=== PATIENT | female | born 1955 | race Caucasian/White ===

== ENCOUNTER 2019-10-26 14:49 | Inpatient (IN) | payer BC ==
[2019-10-26 15:29] LABS: HEMATOCRIT 34.1 % (36.0-47.0); HEMOGLOBIN 11.1 g/dL (12.0-15.5); MEAN CORPUSCULAR HEMOGLOBIN 27.5 pg (27.0-33.4); MEAN CORPUSCULAR HGB CONC 32.6 g/dL (32.0-36.0); MEAN CORPUSCULAR VOLUME 84 fl (80-97); PLATELET COUNT 560 10^3/uL (150-450); RED BLOOD COUNT 4.05 10^6/uL (3.72-5.28); RED CELL DISTRIBUTION WIDTH 15.4 % (11.5-14.0)
[2019-10-26 15:49] LABS: ABSOLUTE LYMPHOCYTES# (MANUAL) 1.7 10^3/uL (0.5-4.7); ABSOLUTE MONOCYTES # (MANUAL) 2.1 10^3/uL (0.1-1.4); BAND NEUTROPHILS % (MANUAL) 2 % (3-5); BASOPHILS % (MANUAL) 1 % (0-2); EOSINOPHILS % (MANUAL) 1 % (0-6); LYMPHOCYTES % (MANUAL) 3 % (13-45); MONOCYTES % (MANUAL) 5 % (3-13); SEGMENTED NEUTROPHILS % (MAN) 87 % (42-78); TOTAL CELLS COUNTED 100
[2019-10-26 15:51] LABS: ANISOCYTOSIS SLIGHT; OVALOCYTES SLIGHT; PLATELET COMMENT INCREASED; PLATELET LARGE PRESENT; POIKILOCYTOSIS SLIGHT; POLYCHROMASIA SLIGHT; TOXIC VACUOLATION PRESENT
--- NOTE | 2019-10-26 15:57 | ER Document Report ---
Entered by ARASH SHAH SCRIBE 10/26/19 1533 Acting as scribe for:WONG MARIA DO ED General - General Chief Complaint: Altered Mental Status Stated Complaint: WEAKNESS/CONFUSION Time Seen by Provider: 10/26/19 15:22 Information source: Patient Notes: This 64-year-old female patient presents to the emergency department today stating "I do not know, I just do not feel good". Patient states she has "not felt good" for the last few months, mentioning that she does not know exactly wh en this began but mentions she has felt unwell since at least August. Patient reports a 30 pound weight loss over the last 6 months, stating that she has no appetite. Patient reports she has not seen a doctor in at least 10 years, and she could not remember the last time she has seen one. Patient denies all symptoms including chest pain, shortness of breath, abdominal pain, or history of depression. Patient does appear depressed. - Related Data Allergies/Adverse Reactions: No Known Allergies Allergy (Verified 10/26/19 15:13) Past Medical History - General Information source: Patient - Social History Smoking Status: Never Smoker Cigarette use (# per day): No Frequency of alcohol use: None Drug Abuse: None Lives with: Spouse/Significant other Family History: Reviewed & Not Pertinent Patient has homicidal ideation: No - Medical History Medical History: Negative Surgical Hx: Negative Review of Systems - Review of Systems Constitutional: See HPI, Malaise EENT: No symptoms reported Cardiovascular: No symptoms reported Respiratory: No symptoms reported Gastrointestinal: No symptoms reported Genitourinary: No symptoms reported Female Genitourinary: No symptoms reported Musculoskeletal: No symptoms reported Skin: No symptoms reported Hematologic/Lymphatic: No symptoms reported Neurological/Psychological: No symptoms reported -: Yes All other systems reviewed and negative Physical Exam - Vital signs Vitals: Pulse Resp BP Pulse Ox 125 H 19 125/79 96 10/26/19 14:50 10/26/19 14:50 10/26/19 14:50 10/26/19 14:50 - Notes Notes: Physical Exam: General: Alert, appears depressed. HEENT: Normocephalic. Atraumatic. PERRL. Extraocular movements intact. Oropharynx clear. Neck: Supple. Non-tender. Respiratory: No respiratory distress. Clear and equal breath sounds bilaterally. Breast exam performed with female nurse in attendance. No palpable masses. Cardiovascular: Regular rate and rhythm. Abdominal: Normal Inspection. Non-tender. No distension. Normal Bowel Sounds. Back: No gross abnormalities. Extremities: Moves all four extremities. Upper extremities: Normal inspection. Normal ROM. Lower extremities: Normal inspection. No edema. Normal ROM. Neurological: Normal cognition. AAOx4. Normal speech. Psychological: Depressed. Skin: Warm. Dry. Normal color. Course - Re-evaluation Re-evalutation: 10/26/19 20:16 MDM I discussed this pt with Dr. Sands and Dr. Ritchie and the hospitalist will admit and evaluate for admission. - Vital Signs Vital signs: Temp Pulse Resp BP Pulse Ox 98.8 F 124 H 26 H 137/92 H 97 10/26/19 19:52 10/26/19 19:33 10/26/19 19:39 10/26/19 19:39 10/26/19 19:39 - Laboratory Result Diagrams: 10/26/19 15:12 10/26/19 16:08 Laboratory results interpreted by me: 10/26/19 10/26/19 10/26/19 15:12 15:39 16:08 WBC 42.0 H* Hgb 11.1 L Hct 34.1 L RDW 15.4 H Plt Count 560 H Seg Neuts % (Manual) 87 H Band Neutrophils % 2 L Lymphocytes % (Manual) 3 L Abs Neuts (Manual) 37.4 H Abs Monocytes (Manual) 2.1 H Abs Basophils (Manual) 0.4 H Carbonic Acid ABG pH ABG pCO2 ABG HCO3 ABG Total CO2 Sodium Potassium Chloride Creatinine Glucose POC Glucose 121 H Lactic Acid 2.4 H Calcium AST ALT Alkaline Phosphatase Creatine Kinase Albumin Urine Protein Urine Urobilinogen Urine Ascorbic Acid 10/26/19 10/26/19 10/26/19 16:08 16:40 17:09 WBC Hgb Hct RDW Plt Count Seg Neuts % (Manual) Band Neutrophils % Lymphocytes % (Manual) Abs Neuts (Manual) Abs Monocytes (Manual) Abs Basophils (Manual) Carbonic Acid 1.03 L ABG pH 7.54 H ABG pCO2 34.3 L ABG HCO3 28.4 H ABG Total CO2 29.5 H Sodium 127.4 L Potassium 3.4 L Chloride 95 L Creatinine 0.44 L Glucose 118 H POC Glucose Lactic Acid Calcium 11.4 H AST 65 H ALT 46 H Alkaline Phosphatase 132 H Creatine Kinase < 20 L Albumin 2.6 L Urine Protein 30 H Urine Urobilinogen 2.0 H Urine Ascorbic Acid 40 H - Diagnostic Test Radiology reviewed: Image reviewed, Reports reviewed Discharge - Discharge Clinical Impression: Rectal carcinoma Anemia Qualifiers: Anemia type: unspecified type Qualified Code(s): D64.9 - Anemia, unspecified Condition: Stable Disposition: ADMITTED INPATIENT Admitting Provider: Erma (Hospitalist) Unit Admitted: Medical Floor I personally performed the services described in the documentation, reviewed and edited the documentation which was dictated to the scribe in my presence, and it accurately records my words and actions.
--- NOTE | 2019-10-26 16:39 | RADIOLOGY REPORT (SQ) ---
EXAM DESCRIPTION: CT HEAD WITHOUT IMAGES COMPLETED DATE/TIME: 10/26/2019 2:54 pm REASON FOR STUDY: weak/ aloc COMPARISON: None. TECHNIQUE: Axial images acquired through the brain without intravenous contrast. Images reviewed wi th bone, brain and subdural windows. Additional sagittal and coronal reconstructions were generated. Images stored on PACS. All CT scanners at this facility use dose modulation, iterative reconstruction, and/or weight based d osing when appropriate to reduce radiation dose to as low as reasonably achievable (ALARA). [facility]: Dose Right [facility]: CareDose [facility]: Dose Right [facility]: Teradose 4D [facility]: Smart BULX RADIATION DOSE: CT Rad equipment meets quality standard of care and radiation dose reduction techniq ues were employed. CTDIvol: 53.2 mGy. DLP: 1017 mGy-cm. mGy. LIMITATIONS: None. FINDINGS: VENTRICLES: Normal size and contour. CEREBRUM: No masses. No hemorrhage. No midline shift. No evidence for acute infarction. Normal gra y/white matter differentiation. No areas of low density in the white matter. CEREBELLUM: No masses. No hemorrhage. No alteration of density. No evidence for acute infarction. EXTRAAXIAL SPACES: No fluid collections. No masses. ORBITS AND GLOBE: No intra- or extraconal masses. Normal contour of globe without masses. CALVARIUM: No fracture. PARANASAL SINUSES: No fluid or mucosal thickening. SOFT TISSUES: No mass or hematoma. OTHER: No other significant finding. IMPRESSION: NO ACUTE INTRACRANIAL IMAGING FINDINGS. EVIDENCE OF ACUTE STROKE: NO. COMMENT: Quality ID # [id number]: Final reports with documentation of one or more dose reduction techniques (e.g., Automated exposure control, adjustment of the mA and/or kV according to patient size, use of iterative reconstruction technique) TECHNICAL DOCUMENTATION: JOB ID: [id number] 2010 [employer]- All Rights Reserved Reading location - IP/workstation name: [email or web address]
[2019-10-26 16:43] LABS: ALBUMIN 2.6 g/dL (3.5-5.0); ALKALINE PHOSPHATASE 132 U/L (38-126); ANION GAP 6 (5-19); ASPARTATE AMINO TRANSFERASE 65 U/L (14-36); BILIRUBIN,TOTAL 1.1 mg/dL (0.2-1.3); BLOOD UREA NITROGEN 12 mg/dL (7-20); CALCIUM 11.4 mg/dL (8.4-10.2); CARBON DIOXIDE 26 mmol/L (22-30); CHLORIDE 95 mmol/L (98-107); GLUCOSE 118 mg/dL (75-110); POTASSIUM 3.4 mmol/L (3.6-5.0); TOTAL PROTEIN 6.6 g/dL (6.3-8.2)
[2019-10-26 16:44] LABS: INTERNATIONAL RATION (INR) 1.08
[2019-10-26 16:46] LABS: CREATINE KINASE < 20 U/L (30-135)
[2019-10-26 16:54] LABS: CREATINE KINASE MB < 0.22 ng/mL (<4.55); TROPONIN I < 0.012 ng/mL
[2019-10-26 17:11] LABS: AMORPHOUS SEDIMENT,URINE TRACE /HPF; APPEARANCE,URINE CLOUDY; BILIRUBIN,URINE NEGATIVE (NEGATIVE); COLOR,URINE YELLOW; GLUCOSE, URINE NEGATIVE (NEGATIVE); KETONES,URINE NEGATIVE (NEGATIVE); LEUKOCYTE ESTERASE,URINE NEGATIVE (NEGATIVE); NITRITE,URINE NEGATIVE (NEGATIVE); PROTEIN,URINE 30 mg/dL (NEGATIVE); URINE SPECIFIC GRAVITY 1.013
[2019-10-26 17:40] LABS: ARTERIAL BLOOD BASE EXCESS 5.8 mmol/L; ARTERIAL BLOOD H2CO3 1.03 mmol/L (1.05-1.35); ARTERIAL BLOOD HCO3 28.4 mmol/L (20-24); ARTERIAL BLOOD PCO2 34.3 mmHg (35-45); ARTERIAL BLOOD PH 7.54 (7.35-7.45); ARTERIAL BLOOD TOTAL CO2 29.5 mmol/L (21-25)
[2019-10-26 17:41] LABS: ARTERIAL BLOOD FIO2 ROOM AIR
--- NOTE | 2019-10-26 18:04 | RADIOLOGY REPORT (SQ) ---
EXAM DESCRIPTION: CHEST SINGLE VIEW IMAGES COMPLETED DATE/TIME: 10/26/2019 5:55 pm REASON FOR STUDY: sepsis COMPARISON: None. TECHNIQUE: Single frontal radiographic view of the chest acquired. NUMBER OF VIEWS: One view. LIMITATIONS: None. FINDINGS: LUNGS AND PLEURA: No pneumothorax. No consolidation or pleural effusion. MEDIASTINUM AND HILAR STRUCTURES: Age-appropriate contour. HEART AND VASCULAR STRUCTURES: Heart normal size. BONES: No acute findings. HARDWARE: None in the chest. OTHER: No other significant finding. IMPRESSION: NO ACUTE FINDINGS. TECHNICAL DOCUMENTATION: JOB ID: [id number] [place]-72 2010 [employer]- All Rights Reserved Reading location - IP/workstation name: [email or web address]
[2019-10-26] MEDS ORDERED: RINGERS SOLUTION,LACTATED 1,000 ML IV ONE ×2 (19:33→19:34)
[2019-10-26] MEDS ORDERED: POTASSIUM CHLORIDE 20 MEQ PACKET PO ONE (19:43)
--- NOTE | 2019-10-26 19:48 | RADIOLOGY REPORT (SQ) ---
EXAM DESCRIPTION: CT CHEST WITH; CT ABD/PELVIS WITH IV ONLY IMAGES COMPLETED DATE/TIME: 10/26/2019 6:11 pm REASON FOR STUDY: cough; abd pain . Diffuse abdominal pain. COMPARISON: None. CONTRAST TYPE AND DOSE: contrast/concentration: Isovue 350.00 mmol/ml; Total Contrast Delivered: 99. 0 ml; Total Saline Delivered: 66.0 ml RENAL FUNCTION: GFR > 60. TECHNIQUE: CT scan of the chest performed using helical scanning technique with dynamic intravenous contrast injection. Images reviewed with lung, soft tissue and bone windows. Reconstructed coronal a nd sagittal MPR images reviewed. All images stored on PACS. CT scan of the abdomen and pelvis performed with intravenous and oral contrast using helical scanning technique with dynamic intravenous contrast injection. Images reviewed with lung, soft tissue and b one windows. Reconstructed coronal and sagittal MPR images reviewed. Delayed images for evaluation of the urinary system also acquired and evaluated. All images stored on PACS. All CT scanners at this facility use dose modulation, iterative reconstruction, and/or weight based d osing when appropriate to reduce radiation dose to as low as reasonably achievable (ALARA). [facility]: Dose Right [facility]: CareDose [facility]: Dose Right [facility]: Teradose 4D [facility]: [employer] RADIATION DOSE: CT Rad equipment meets quality standard of care and radiation dose reduction techniq ues were employed. CTDIvol: 7.9 - 11.9 mGy. DLP: 1206 mGy-cm. . LIMITATIONS: None. FINDINGS: CHEST: AXILLAE: No adenopathy. CHEST WALL: No masses. No subcutaneous air. LUNGS: No nodules or masses. No pneumothorax. No infiltrates. PLEURA: No effusions. No calcifications. THYROID: No masses or significant asymmetry. HILAR AND MEDIASTINAL STRUCTURES: No identified masses or abnormal nodes. AORTA AND GREAT VESSELS: No aneurysm. No dissection. PULMONARY ARTERIES: No identified pulmonary emboli. Study not optimized for the pulmonary arteries. HEART: No pericardial effusion. HARDWARE AND LIFELINES: None. BONES: No significant finding. OTHER: No other significant finding. ABDOMEN AND PELVIS: LIVER: Liver has normal size and contour. Mild diffuse hepatic steatosis. No focal hepatic mass. H epatic and portal veins are patent. No biliary ductal dilation. SPLEEN: Normal size. No focal lesions. PANCREAS: No masses. No significant calcifications. No adjacent inflammation or peripancreatic flui d collections. Pancreatic duct not dilated. GALLBLADDER: No identified stones by CT criteria. No inflammatory changes to suggest cholecystitis. ADRENAL GLANDS: No significant masses or asymmetry. RIGHT KIDNEY AND URETER: No solid masses. No significant calcifications. No hydronephrosis or hyd roureter. LEFT KIDNEY AND URETER: No solid masses. No significant calcifications. No hydronephrosis or hydr oureter. AORTA AND VESSELS: No aneurysm. No dissection. Renal arteries, SMA, celiac without stenosis. RETROPERITONEUM: There is retroperitoneal adenopathy with large lymph node adjacent to the left aorta measuring 5.1 x 3.3 cm there is left iliac adenopathy with common iliac node measuring 4 x 2.3 cm. There is left internal iliac lymphadenopathy with a lymph node measuring 2.9 x 2.7 cm. Large left in guinal lymph node measures 3.6 x 3 cm. No retroperitoneal fluid or hemorrhage. No right pelvic avril opathy. LARGE AND SMALL BOWEL: There is a partially circumferential rectal mass involving the low to mid rect um measuring at least 4 cm thickness and extending 12 cm craniocaudal along the colon. This is parti ally circumferential involving the anterior, right, and posterior rectal wall from about the 6 o'cloc k position to the 1 o'clock position. There is loss of the normal fat plane between the anterior rec nupur and uterus, suspicious for local invasion. No bowel obstruction. No significant inflammatory ch lulú. No ascites or pneumoperitoneum. APPENDIX: Normal. ABDOMINAL WALL: No hernia or masses. PERITONEAL CAVITY: No free air. No free fluid. No peritoneal implants or masses. PELVIS: There are enlarged perirectal lymph nodes, for example on the left measuring up to 16 mm and on the right measuring up to 15 mm. The urinary bladder has normal contour and appearance. Calcifie d pelvic phleboliths. No adnexal mass. BONES: No suspicious bone lesions. Spondylosis and degenerative disc disease in the thoracic and lum bar spine. OTHER: No other significant finding. IMPRESSION: 1. Large circumferential rectal mass consistent with rectal carcinoma. Loss of the normal fat plane between the anterior rectal wall and the uterus is highly suggestive of local invasion. No evidence of perforation or peritoneal abscess. 2. There are multiple enlarged perirectal, left inguinal, left internal and common iliac, and retrope ritoneal lymph nodes consistent with metastasis. 3. No acute abnormality in the chest. TECHNICAL DOCUMENTATION: JOB ID: [id number] Quality ID # [id number]: Final reports with documentation of one or more dose reduction techniques (e.g., Au tomated exposure control, adjustment of the mA and/or kV according to patient size, use of iterative reconstruction technique) 2010 [employer]- All Rights Reserved Reading location - IP/workstation name: [email or web address]
[2019-10-26] MEDS ORDERED: PIPERACILLIN/TAZOBACTAM 3.375 GM VIAL IV ONE (20:02)
[2019-10-26 20:30] LABS: ABSOLUTE RETICS # 0.087 10^6/uL (0.028-0.122); RETICULOCYTE COUNT (AUTO) 2.15 % (0.66-2.85)
[2019-10-26] MEDS ORDERED: MAGNESIUM HYDROXIDE SUSP 30 ML UDCUP PO PRN (20:33)
[2019-10-26] MEDS ORDERED: MAG HYDROX/AL HYDROX/SIMETH SUSP 30 ML UDCUP PO PRN (20:33)
[2019-10-26] MEDS ORDERED: ONDANSETRON HCL INJ/PF 4 MG/2 ML SDV IV PRN (20:33)
[2019-10-26] MEDS ORDERED: LORAZEPAM INJ 2 MG/1 ML VIAL IV PRN (20:37)
[2019-10-26] MEDS ORDERED: GUAIFENESIN SYRP 200 MG/10 ML UDC PO PRN (20:37)
[2019-10-26] MEDS ORDERED: ACETAMINOPHEN 325 MG TABLET PO PRN (20:37)
[2019-10-26] MEDS ORDERED: MORPHINE SULFATE 10 MG/ML INJ IV PRN (20:37)
[2019-10-26 20:40] LABS: IRON(TIBC) 33.6 ug/dL (37-170)
--- NOTE | 2019-10-26 22:07 | PDOC CONSULTATION ---
Consultation Consult Date: 10/26/19 Provider Consulted: GUILLERMINA COATS History of Present Illness Admission Date/PCP: 10/26/19 20:15 Patient complains of: Generalized weakness History of Present Illness: STEFFI KULKARNI is a 64 year old female with no prior medical history presenting with several month history of generalized malaise and progressively worsening weakness to the point that in the last week she has had limited ambulation status. She has had diminished appetite with about 20 to 30 pound weight loss over the past couple of months. She denies any fever she denies any cough she denies any abdominal pain. She has noticed decrease amounts in her bowel movements but she has had no nausea no abdominal distention and no known blood per rectum. Patient has no family history of malignancies. She has never had a colonoscopy in the past. She denies any pelvic pain nor any bony complaints. Her has noticed that in the past week she has become disoriented and confused. Past Medical History Medical History: None Cardiac Medical History: Denies: Coronary Artery Disease, Hypertension Pulmonary Medical History: Denies: Asthma, Chronic Obstructive Pulmonary Disease (COPD) EENT Medical History: Denies: Cataracts, Ears - Hearing aids Neurological Medical History: Denies: Hemorrhagic CVA, Ischemic CVA, Seizures Endocrine Medical History: Denies: Diabetes Mellitus Type 1, Diabetes Mellitus Type 2, Hyperthyroidism, Hypothyroidism Renal/ Medical History: Denies: Chronic Kidney Disease, Nephrolithiasis Malignancy Medical History: Reports: None GI Medical History: Denies: Cirrhosis, Hepatitis, Peptic Ulcer Disease Musculoskeltal Medical History: Denies: Arthritis, Gout Skin Medical History: Denies: Eczema, Psoriasis Psychiatric Medical History: Denies: Alcohol Dependency, Depression, Substance Abuse, Tobacco Dependency Traumatic Medical History: Reports: None Hematology: Denies: Anemia, Bleeding Tendencies Infectious Medical History: Reports: None Past Surgical History Past Surgical History: Reports: None Social History Lives with: Spouse/Significant other Smoking Status: Former Smoker - Quit smoking about 6 years ago. Electronic Cigarette use?: No Frequency of Alcohol Use: None Hx Recreational Drug Use: No Drugs: None Hx Prescription Drug Abuse: No - Advance Directive Resuscitation Status: Full Code Family History Family History: denies: CAD, DM, Hypertension, Malignancy Parental Family History Reviewed: Yes Children Family History Reviewed: Yes Sibling(s) Family History Reviewed.: Yes Medication/Allergy Home Medications: No Home Medications 10/26/19 Allergies/Adverse Reactions: No Known Allergies Allergy (Verified 10/26/19 15:13) Review of Systems ROS unobtainable: Due to mental status - Patient answers some simple questions but she really is not able to give a detailed history. Her gave most of the history. Physical Exam Vital Signs: Temp Pulse Resp BP Pulse Ox 98.8 F 124 H 29 H 136/80 H 98 10/26/19 19:52 10/26/19 19:33 10/26/19 20:30 10/26/19 20:30 10/26/19 20:30 Intake & Output 10/25/19 10/26/19 10/27/19 06:59 06:59 06:59 Output Total 280 Balance -280 Weight 73.3 kg General appearance: PRESENT: disheveled Neck exam: PRESENT: other - no tenderness. Respiratory exam: PRESENT: clear to auscultation sakina Cardiovascular exam: PRESENT: tachycardia GI/Abdominal exam: PRESENT: other - Soft, nondistended, nontender to palpation. No palpable hepatosplenomegaly. Rectal exam: PRESENT: other - Anal skin tag noted. Digital rectal exam reveals palpable mass on the right rectal wall extending to the upper anal canal. Extremities exam: PRESENT: other - No leg swelling or tenderness. Neurological exam: PRESENT: awake Psychiatric exam: PRESENT: depressed, flat affect Results Laboratory Results: 10/26/19 15:12 10/26/19 16:08 10/26/19 10/26/19 10/26/19 15:12 15:12 15:12 WBC 42.0 H* RBC 4.05 Hgb 11.1 L Hct 34.1 L MCV 84 MCH 27.5 MCHC 32.6 RDW 15.4 H Plt Count 560 H Seg Neutrophils % Not Reportable Retic Count (auto) Carbonic Acid HCO3/H2CO3 Ratio ABG pH ABG pCO2 ABG pO2 ABG HCO3 ABG O2 Saturation ABG Base Excess FiO2 Sodium Cancelled Potassium Cancelled Chloride Cancelled Carbon Dioxide Cancelled Anion Gap Cancelled BUN Cancelled Creatinine Cancelled Est GFR ( Amer) Cancelled Est GFR (Non-Af Amer) Cancelled Glucose Cancelled Lactic Acid Calcium Cancelled Magnesium Iron TIBC % Saturation Ferritin Total Bilirubin Cancelled AST Cancelled Alkaline Phosphatase Cancelled Total Protein Cancelled Albumin Cancelled Vitamin B12 Folate TSH 2.28 Urine Color Urine Appearance Urine pH Ur Specific [place] Urine Protein Urine Glucose (UA) Urine Ketones Urine Blood Urine Nitrite Ur Leukocyte Esterase Urine WBC (Auto) Urine RBC (Auto) 10/26/19 10/26/19 10/26/19 15:12 16:08 16:08 WBC RBC Hgb Hct MCV MCH MCHC RDW Plt Count Seg Neutrophils % Retic Count (auto) 2.15 Carbonic Acid HCO3/H2CO3 Ratio ABG pH ABG pCO2 ABG pO2 ABG HCO3 ABG O2 Saturation ABG Base Excess FiO2 Sodium Potassium Chloride Carbon Dioxide Anion Gap BUN Creatinine Est GFR ( Amer) Est GFR (Non-Af Amer) Glucose Lactic Acid 2.4 H Calcium Magnesium 1.7 Iron TIBC % Saturation Ferritin Total Bilirubin AST Alkaline Phosphatase Total Protein Albumin Vitamin B12 Folate TSH Urine Color Urine Appearance Urine pH Ur Specific [place] Urine Protein Urine Glucose (UA) Urine Ketones Urine Blood Urine Nitrite Ur Leukocyte Esterase Urine WBC (Auto) Urine RBC (Auto) 10/26/19 10/26/19 10/26/19 16:08 16:08 16:40 WBC RBC Hgb Hct MCV MCH MCHC RDW Plt Count Seg Neutrophils % Retic Count (auto) Carbonic Acid HCO3/H2CO3 Ratio ABG pH ABG pCO2 ABG pO2 ABG HCO3 ABG O2 Saturation ABG Base Excess FiO2 Sodium 127.4 L Potassium 3.4 L Chloride 95 L Carbon Dioxide 26 Anion Gap 6 BUN 12 Creatinine 0.44 L Est GFR ( Amer) > 60 Est GFR (Non-Af Amer) Glucose 118 H Lactic Acid Calcium 11.4 H Magnesium Iron 33.6 L TIBC 190 L % Saturation 18 Ferritin > 1000.00 H Total Bilirubin 1.1 AST 65 H Alkaline Phosphatase 132 H Total Protein 6.6 Albumin 2.6 L Vitamin B12 871.0 Folate 9.60 TSH Urine Color YELLOW Urine Appearance CLOUDY Urine pH 6.0 Ur Specific [place] 1.013 Urine Protein 30 H Urine Glucose (UA) NEGATIVE Urine Ketones NEGATIVE Urine Blood NEGATIVE Urine Nitrite NEGATIVE Ur Leukocyte Esterase NEGATIVE Urine WBC (Auto) 2 Urine RBC (Auto) 2 10/26/19 10/26/19 17:09 18:05 WBC RBC Hgb Hct MCV MCH MCHC RDW Plt Count Seg Neutrophils % Retic Count (auto) Carbonic Acid 1.03 L HCO3/H2CO3 Ratio 27:1 ABG pH 7.54 H ABG pCO2 34.3 L ABG pO2 80.0 ABG HCO3 28.4 H ABG O2 Saturation 97.0 ABG Base Excess 5.8 FiO2 ROOM AIR Sodium Potassium Chloride Carbon Dioxide Anion Gap BUN Creatinine Est GFR ( Amer) Est GFR (Non-Af Amer) Glucose Lactic Acid 1.8 Calcium Magnesium Iron TIBC % Saturation Ferritin Total Bilirubin AST Alkaline Phosphatase Total Protein Albumin Vitamin B12 Folate TSH Urine Color Urine Appearance Urine pH Ur Specific [place] Urine Protein Urine Glucose (UA) Urine Ketones Urine Blood Urine Nitrite Ur Leukocyte Esterase Urine WBC (Auto) Urine RBC (Auto) 10/26/19 10/26/19 10/26/19 15:12 15:12 16:08 Creatine Kinase Cancelled CK-MB (CK-2) Cancelled < 0.22 Troponin I Cancelled < 0.012 10/26/19 16:08 Creatine Kinase < 20 L CK-MB (CK-2) Troponin I Impressions: Abdomen/Pelvis CT 10/26/19 00:00 IMPRESSION: 1. Large circumferential rectal mass consistent with rectal carcinoma. Loss of the normal fat plane between the anterior rectal wall and the uterus is highly suggestive of local invasion. No evidence of perforation or peritoneal abscess. 2. There are multiple enlarged perirectal, left inguinal, left internal and common iliac, and retroperitoneal lymph nodes consistent with metastasis. 3. No acute abnormality in the chest. Chest X-Ray 10/26/19 00:00 IMPRESSION: NO ACUTE FINDINGS. Head CT 10/26/19 15:37 IMPRESSION: NO ACUTE INTRACRANIAL IMAGING FINDINGS. EVIDENCE OF ACUTE STROKE: NO. Chest CT 10/26/19 17:28 IMPRESSION: 1. Large circumferential rectal mass consistent with rectal carcinoma. Loss of the normal fat plane between the anterior rectal wall and the uterus is highly suggestive of local invasion. No evidence of perforation or peritoneal abscess. 2. There are multiple enlarged perirectal, left inguinal, left internal and co mmon iliac, and retroperitoneal lymph nodes consistent with metastasis. 3. No acute abnormality in the chest. Assessment & Plan - Diagnosis (1) Rectal carcinoma Is this a current diagnosis for this admission?: Yes Plan: Likely locally advanced rectal carcinoma. Patient will be admitted admitted to the medical service. After adequate hydration, patient would benefit from a bowel prep followed by colonoscopy. Patient certainly in no shape to undergo any type of surgical intervention. After we establish the diagnosis with biopsies, will need to discuss with oncology and the family about the best treatment option. Surgical service will follow.
[2019-10-26] MEDS: HEPARIN SOD (PORCINE) 5,000 UNIT/ML 1 ML VIAL SUBCUT SCH (22:28)
[2019-10-26] MEDS: MELATONIN 5 MG TABLET PO PRN (22:28)
[2019-10-26] MEDS: FAMOTIDINE 20 MG TABLET PO SCH (22:28)
--- NOTE | 2019-10-27 00:53 | PDOC H&P ---
History of Present Illness Admission Date/PCP: 10/26/2019 20:15 No local PCP Patient complains of: Malaise History of Present Illness: STEFFI DICKSON is a 64 year old female presented to the emergency room with a 6- month history of malaise. She admits a gradually worsening course of generalized malaise over the last 6 months. Her malaise is been accompanied by fatigue and a decrease in appetite and has been associated with an unintentional weight loss of 30 pounds and progressive generalized weakness. She denies other associated or accompanying signs and symptoms. She denies prior similar episodes. She has not identified any aggravating or ameliorating factors for her malaise. In the emergency room she was found to have a rectal mass with pelvic lymphadenopathy, hyponatremia, hypercalcemia, a respiratory alkalosis and a white blood count of 42,000. She was subsequently admitted to the hospital for further evaluation and treatment. Past Medical History Cardiac Medical History: Denies: Coronary Artery Disease, Hypertension Pulmonary Medical History: Denies: Asthma, Chronic Obstructive Pulmonary Disease (COPD) EENT Medical History: Denies: Cataracts, Ears - Hearing aids Neurological Medical History: Denies: Hemorrhagic CVA, Ischemic CVA, Seizures Endocrine Medical History: Denies: Diabetes Mellitus Type 1, Diabetes Mellitus Type 2, Hyperthyroidism, Hypothyroidism Renal/ Medical History: Denies: Chronic Kidney Disease, Nephrolithiasis Malignancy Medical History: Reports: None GI Medical History: Denies: Cirrhosis, Hepatitis, Peptic Ulcer Disease Musculoskeltal Medical History: Denies: Arthritis, Gout Skin Medical History: Denies: Eczema, Psoriasis Psychiatric Medical History: Denies: Alcohol Dependency, Depression, Substance Abuse, Tobacco Dependency Traumatic Medical History: Reports: None Hematology: Denies: Anemia, Bleeding Tendencies Infectious Medical History: Reports: None Past Surgical History Past Surgical History: Reports: None Social History Information Source: Patient Lives with: Spouse/Significant other Smoking Status: Former Smoker - Quit several years ago Electronic Cigarette use?: No Frequency of Alcohol Use: None Hx Recreational Drug Use: No Drugs: None Hx Prescription Drug Abuse: No - Advance Directive Resuscitation Status: Full Code Surrogate healthcare decision maker:: Arpit Dickson Family History Family History: denies: CAD, DM, Hypertension, Malignancy Parental Family History Reviewed: Yes Children Family History Reviewed: No Sibling(s) Family History Reviewed.: Yes Medication/Allergy Home Medications: No Home Medications 10/26/19 Allergies/Adverse Reactions: No Known Allergies Allergy (Verified 10/26/19 15:13) Review of Systems Constitutional: PRESENT: as per HPI, anorexia, fatigue, weakness, weight loss, other - Malaise. ABSENT: chills, fever(s) Eyes: ABSENT: visual disturbances, other - Eye pain Ears: ABSENT: hearing changes, other - Ear pain Nose, Mouth, and Throat: ABSENT: headache(s), sore throat Cardiovascular: ABSENT: chest pain, palpitations Respiratory: ABSENT: cough, dyspnea Gastrointestinal: ABSENT: abdominal pain, bloating, constipation, diarrhea, melena, nausea, vomiting Genitourinary: ABSENT: dysuria, hematuria Musculoskeletal: ABSENT: back pain, joint swelling Integumentary: ABSENT: pruritus, rash Neurological: PRESENT: weakness - Generalized. ABSENT: confusion, convulsions, focal weakness, memory loss, syncope Psychiatric: ABSENT: anxiety, depression Endocrine: ABSENT: cold intolerance, heat intolerance Hematologic/Lymphatic: ABSENT: easy bleeding, easy bruising Allergic/Immunologic: ABSENT: seasonal rhinorrhea Physical Exam Vital Signs: Temp Pulse Resp BP Pulse Ox 98.8 F 124 H 26 H 137/92 H 97 10/26/19 19:52 10/26/19 19:33 10/26/19 19:39 10/26/19 19:39 10/26/19 19:39 Intake & Output 10/24/19 10/25/19 10/26/19 23:59 23:59 23:59 Output Total 280 Balance -280 Weight 73.3 kg General appearance: PRESENT: no acute distress, cooperative, obese Head exam: PRESENT: atraumatic, normocephalic Eye exam: PRESENT: conjunctiva pink. ABSENT: conjunctival injection, scleral icterus Ear exam: PRESENT: normal external ear exam. ABSENT: bleeding, drainage Mouth exam: PRESENT: dry mucosa, neck supple Neck exam: ABSENT: thyromegaly, tracheal deviation Respiratory exam: PRESENT: clear to auscultation sakina, symmetrical, unlabored Cardiovascular exam: PRESENT: RRR. ABSENT: clicks, gallop, rubs Pulses: PRESENT: normal radial pulses, normal dorsalis pedis pul Vascular exam: PRESENT: normal capillary refill. ABSENT: pallor GI/Abdominal exam: PRESENT: normal bowel sounds, soft, other - Palpable left inguinal lymphadenopathy without tenderness. ABSENT: tenderness Rectal exam: PRESENT: deferred Extremities exam: ABSENT: joint swelling, pedal edema Musculoskeletal exam: ABSENT: deformity, dislocation Neurological exam: PRESENT: alert, oriented to person, oriented to place, oriented to time, oriented to situation, CN II-XII grossly intact. ABSENT: motor sensory deficit Psychiatric exam: PRESENT: appropriate affect, normal mood Skin exam: PRESENT: dry, intact, warm. ABSENT: jaundice, rash, urticaria Results Laboratory Results: 10/26/19 15:12 10/26/19 16:08 10/26/19 10/26/19 10/26/19 15:12 15:12 15:12 WBC 42.0 H* RBC 4.05 Hgb 11.1 L Hct 34.1 L MCV 84 MCH 27.5 MCHC 32.6 RDW 15.4 H Plt Count 560 H Seg Neutrophils % Not Reportable Carbonic Acid HCO3/H2CO3 Ratio ABG pH ABG pCO2 ABG pO2 ABG HCO3 ABG O2 Saturation ABG Base Excess FiO2 Sodium Cancelled Potassium Cancelled Chloride Cancelled Carbon Dioxide Cancelled Anion Gap Cancelled BUN Cancelled Creatinine Cancelled Est GFR ( Amer) Cancelled Est GFR (Non-Af Amer) Cancelled Glucose Cancelled Lactic Acid Calcium Cancelled Magnesium Total Bilirubin Cancelled AST Cancelled Alkaline Phosphatase Cancelled Total Protein Cancelled Albumin Cancelled TSH 2.28 Urine Color Urine Appearance Urine pH Ur Specific [place] Urine Protein Urine Glucose (UA) Urine Ketones Urine Blood Urine Nitrite Ur Leukocyte Esterase Urine WBC (Auto) Urine RBC (Auto) 10/26/19 10/26/19 10/26/19 16:08 16:08 16:08 WBC RBC Hgb Hct MCV MCH MCHC RDW Plt Count Seg Neutrophils % Carbonic Acid HCO3/H2CO3 Ratio ABG pH ABG pCO2 ABG pO2 ABG HCO3 ABG O2 Saturation ABG Base Excess FiO2 Sodium 127.4 L Potassium 3.4 L Chloride 95 L Carbon Dioxide 26 Anion Gap 6 BUN 12 Creatinine 0.44 L Est GFR ( Amer) > 60 Est GFR (Non-Af Amer) Glucose 118 H Lactic Acid 2.4 H Calcium 11.4 H Magnesium 1.7 Total Bilirubin 1.1 AST 65 H Alkaline Phosphatase 132 H Total Protein 6.6 Albumin 2.6 L TSH Urine Color Urine Appearance Urine pH Ur Specific [place] Urine Protein Urine Glucose (UA) Urine Ketones Urine Blood Urine Nitrite Ur Leukocyte Esterase Urine WBC (Auto) Urine RBC (Auto) 10/26/19 10/26/19 10/26/19 16:40 17:09 18:05 WBC RBC Hgb Hct MCV MCH MCHC RDW Plt Count Seg Neutrophils % Carbonic Acid 1.03 L HCO3/H2CO3 Ratio 27:1 ABG pH 7.54 H ABG pCO2 34.3 L ABG pO2 80.0 ABG HCO3 28.4 H ABG O2 Saturation 97.0 ABG Base Excess 5.8 FiO2 ROOM AIR Sodium Potassium Chloride Carbon Dioxide Anion Gap BUN Creatinine Est GFR ( Amer) Est GFR (Non-Af Amer) Glucose Lactic Acid 1.8 Calcium Magnesium Total Bilirubin AST Alkaline Phosphatase Total Protein Albumin TSH Urine Color YELLOW Urine Appearance CLOUDY Urine pH 6.0 Ur Specific [place] 1.013 Urine Protein 30 H Urine Glucose (UA) NEGATIVE Urine Ketones NEGATIVE Urine Blood NEGATIVE Urine Nitrite NEGATIVE Ur Leukocyte Esterase NEGATIVE Urine WBC (Auto) 2 Urine RBC (Auto) 2 10/26/19 10/26/19 10/26/19 15:12 15:12 16:08 Creatine Kinase Cancelled CK-MB (CK-2) Cancelled < 0.22 Troponin I Cancelled < 0.012 10/26/19 16:08 Creatine Kinase < 20 L CK-MB (CK-2) Troponin I Impressions: Abdomen/Pelvis CT 10/26/19 00:00 IMPRESSION: 1. Large circumferential rectal mass consistent with rectal carcinoma. Loss of the normal fat plane between the anterior rectal wall and the uterus is highly suggestive of local invasion. No evidence of perforation or peritoneal abscess. 2. There are multiple enlarged perirectal, left inguinal, left internal and common iliac, and retroperitoneal lymph nodes consistent with metastasis. 3. No acute abnormality in the chest. Chest X-Ray 10/26/19 00:00 IMPRESSION: NO ACUTE FINDINGS. Head CT 10/26/19 15:37 IMPRESSION: NO ACUTE INTRACRANIAL IMAGING FINDINGS. EVIDENCE OF ACUTE STROKE: NO. Chest CT 10/26/19 17:28 IMPRESSION: 1. Large circumferential rectal mass consistent with rectal carcinoma. Loss of the normal fat plane between the anterior rectal wall and the uterus is highly suggestive of local invasion. No evidence of perforation or peritoneal abscess. 2. There are multiple enlarged perirectal, left inguinal, left internal and common iliac, and retroperitoneal lymph nodes consistent with metastasis. 3. No acute abnormality in the chest. Assessment and Plan - Diagnosis (1) Rectal mass Is this a current diagnosis for this admission?: Yes (2) Pelvic lymphadenopathy Is this a current diagnosis for this admission?: Yes (3) Leukocytosis Qualifiers: Leukocytosis type: unspecified Qualified Code(s): D72.829 - Elevated white blood cell count, unspecified Is this a current diagnosis for this admission?: Yes (4) Respiratory alkalosis Is this a current diagnosis for this admission?: Yes (5) Hyponatremia Is this a current diagnosis for this admission?: Yes (6) Hypercalcemia Is this a current diagnosis for this admission?: Yes (7) Anemia Qualifiers: Anemia type: unspecified type Qualified Code(s): D64.9 - Anemia, unspecified Is this a current diagnosis for this admission?: Yes - Plan Summary Summary: Patient will be admitted to the medical floor where she will receive routine supportive and symptomatic cares. She will be treated with IV Zosyn empirically at the direction of Dr. Sands. Dr. Sands will be consulted for hematolog y/oncology evaluation. Dr. Jye Rojas will be consulted for surgical evaluation and treatment. Patient will receive Ativan 1 mg IV every 4 hours as needed for anxiety or restlessness. She will receive morphine sulfate 2 to 4 mg IV every 2 hours as needed pain. She will be maintained on a regular diet. CBCs, metabolic profiles, magnesium levels and additional laboratory and/or radiographic evaluations will be obtained as appropriate. - Time Time Spent with patient: 15-24 minutes Medications reviewed and adjusted accordingly: Yes - No home medications Anticipated discharge: Home - Inpatient Certification Based on my medical assessment, after consideration of the patient's comorbidities, presenting symptoms, or acuity I expect that the services needed warrant INPATIENT care.: Yes I certify that my determination is in accordance with my understanding of Medicare's requirements for reasonable and necessary INPATIENT services [42 CFR 412.3e].: Yes Medical Necessity: Need for IV Antibiotics, Need for Surgery, Risk of Diagnosis Which Will Require Inpatient Eval/Care/Monitoring
[2019-10-27] MEDS ORDERED: PIPERACILLIN/TAZOBACTAM 3.375 GM VIAL IV ONE (01:02)
[2019-10-27] MEDS ORDERED: PIPERACILLIN/TAZOBACTAM 3.375 GM VIAL IV SCH ×2 (03:00)
[2019-10-27] MEDS: HEPARIN SOD (PORCINE) 5,000 UNIT/ML 1 ML VIAL SUBCUT SCH ×3 (05:18→22:44)
[2019-10-27 06:03] LABS: ABSOLUTE RETICS # 0.082 10^6/uL (0.028-0.122); HEMATOCRIT 32.5 % (36.0-47.0); HEMOGLOBIN 10.7 g/dL (12.0-15.5); MEAN CORPUSCULAR HEMOGLOBIN 27.6 pg (27.0-33.4); MEAN CORPUSCULAR HGB CONC 32.9 g/dL (32.0-36.0); MEAN CORPUSCULAR VOLUME 84 fl (80-97); PLATELET COUNT 453 10^3/uL (150-450); RED BLOOD COUNT 3.88 10^6/uL (3.72-5.28); RED CELL DISTRIBUTION WIDTH 15.6 % (11.5-14.0); RETICULOCYTE COUNT (AUTO) 2.11 % (0.66-2.85)
[2019-10-27 06:05] LABS: INTERNATIONAL RATION (INR) 1.14; PROTHROMBIN TIME 14.7 SEC (11.4-15.4)
[2019-10-27 06:06] LABS: PARTIAL THROMBOPLASTIN TIME 25.7 SEC (23.5-35.8)
[2019-10-27 06:22] LABS: ALBUMIN 2.3 g/dL (3.5-5.0); ALKALINE PHOSPHATASE 121 U/L (38-126); ASPARTATE AMINO TRANSFERASE 38 U/L (14-36); BILIRUBIN,TOTAL 1.4 mg/dL (0.2-1.3); BLOOD UREA NITROGEN 8 mg/dL (7-20); CALCIUM 11.7 mg/dL (8.4-10.2); CHOLESTEROL 100.37 mg/dL (0-200); GLUCOSE 90 mg/dL (75-110); IRON(TIBC) 24.8 ug/dL (37-170); PHOSPHORUS 2.7 mg/dL (2.5-4.5); POTASSIUM 3.9 mmol/L (3.6-5.0); TRIGLYCERIDES 74 mg/dL (<150)
[2019-10-27 06:27] LABS: ANION GAP 5 (5-19); CARBON DIOXIDE 29 mmol/L (22-30); CHLORIDE 97 mmol/L (98-107)
[2019-10-27 06:32] LABS: DIRECT LDL 58 mg/dL (<100)
[2019-10-27 07:17] LABS: WHITE BLOOD COUNT 39.4 10^3/uL (4.0-10.5)
[2019-10-27 07:26] LABS: FOLATE 9.02 ng/mL (>2.76)
--- NOTE | 2019-10-27 08:02 | PDOC CONSULTATION ---
Consultation Consult Date: 10/27/19 Attending physician:: KATERINE MANRIQUE Provider Consulted: ELEANOR TOTH Consult reason:: Patient with newly noted large rectal mass, diffuse adenopathy History of Present Illness Admission Date/PCP: 10/26/19 20:15 Patient complains of: Feeling weak, fatigued, 20 to 30 pound weight loss History of Present Illness: STEFFI KULKARNI is a 64 year old female feeling overall poorly, she has not had medical care for quite some time, presents with a 2 to 3-month history of increasing fatigue, poor p.o. intake, weight loss of 20 to 30 pounds, she does remember some bowel abnormalities but does not exactly remember what the issue was. Does not remember blood. Upon admit, white count was 42,000, platelets were above 500,000, patient had CT of the head because there was some confusion which was negative, patient had CT of the chest abdomen pelvis, and this unfortunately indicated a large rectal mass, left iliac adenopathy, left inguinal adenopathy, and multiple perirectal lymph nodes. CT chest was negative for any disease. Past Medical History Cardiac Medical History: Denies: Coronary Artery Disease, Hypertension Pulmonary Medical History: Denies: Asthma, Chronic Obstructive Pulmonary Disease (COPD) EENT Medical History: Denies: Cataracts, Ears - Hearing aids Neurological Medical History: Denies: Hemorrhagic CVA, Ischemic CVA, Seizures Endocrine Medical History: Denies: Diabetes Mellitus Type 1, Diabetes Mellitus Type 2, Hyperthyroidism, Hypothyroidism Renal/ Medical History: Denies: Chronic Kidney Disease, Nephrolithiasis Malignancy Medical History: Reports: None GI Medical History: Denies: Cirrhosis, Hepatitis, Peptic Ulcer Disease Musculoskeltal Medical History: Denies: Arthritis, Gout Skin Medical History: Denies: Eczema, Psoriasis Psychiatric Medical History: Denies: Alcohol Dependency, Depression, Substance Abuse, Tobacco Dependency Traumatic Medical History: Reports: None Hematology: Denies: Anemia, Bleeding Tendencies Infectious Medical History: Reports: None Past Surgical History Past Surgical History: Reports: None Social History Information Source: Patient Lives with: Spouse/Significant other Smoking Status: Former Smoker - Quit several years ago Electronic Cigarette use?: No Frequency of Alcohol Use: None Hx Recreational Drug Use: No Drugs: None Hx Prescription Drug Abuse: No - Advance Directive Resuscitation Status: Full Code Family History Family History: denies: CAD, DM, Hypertension, Malignancy Parental Family History Reviewed: Yes Children Family History Reviewed: Yes Sibling(s) Family History Reviewed.: Yes Medication/Allergy Home Medications: No Home Medications 10/26/19 Allergies/Adverse Reactions: No Known Allergies Allergy (Verified 10/26/19 15:13) Review of Systems Constitutional: PRESENT: anorexia, fatigue, weakness, weight loss Cardiovascular: ABSENT: chest pain, dyspnea on exertion, edema, orthropnea, palpitations Respiratory: ABSENT: cough, hemoptysis Gastrointestinal: PRESENT: abdominal pain, constipation Musculoskeletal: ABSENT: joint swelling Integumentary: ABSENT: rash, wounds Neurological: PRESENT: weakness Endocrine: ABSENT: cold intolerance, heat intolerance, polydipsia, polyuria Physical Exam Vital Signs: Temp Pulse Resp BP Pulse Ox 99.0 F 110 H 18 127/79 H 98 10/27/19 00:32 10/27/19 00:32 10/27/19 00:32 10/27/19 00:32 10/27/19 00:32 Intake & Output 10/26/19 10/27/19 10/28/19 06:59 06:59 06:59 Intake Total 2200 Output Total 280 Balance 1920 Weight 76.8 kg General appearance: PRESENT: no acute distress, well-developed, well-nourished Head exam: PRESENT: atraumatic, normocephalic Eye exam: PRESENT: conjunctiva pink, EOMI, PERRLA. ABSENT: scleral icterus Ear exam: PRESENT: normal external ear exam Mouth exam: PRESENT: moist, tongue midline Neck exam: ABSENT: carotid bruit, JVD, lymphadenopathy, thyromegaly Respiratory exam: PRESENT: clear to auscultation sakina. ABSENT: rales, rhonchi, wheezes Cardiovascular exam: PRESENT: RRR. ABSENT: diastolic murmur, rubs, systolic murmur Pulses: PRESENT: normal dorsalis pedis pul Vascular exam: PRESENT: normal capillary refill GI/Abdominal exam: PRESENT: normal bowel sounds, soft. ABSENT: distended, guarding, mass, organolmegaly, rebound, tenderness Rectal exam: PRESENT: deferred Extremities exam: PRESENT: full ROM. ABSENT: calf tenderness, clubbing, pedal edema Neurological exam: PRESENT: alert, awake, oriented to person, oriented to place, oriented to time, oriented to situation, CN II-XII grossly intact. ABSENT: motor sensory deficit Psychiatric exam: PRESENT: appropriate affect, normal mood. ABSENT: homicidal ideation, suicidal ideation Skin exam: PRESENT: dry, intact, warm. ABSENT: cyanosis, rash Results Laboratory Results: 10/27/19 04:56 10/27/19 04:56 10/26/19 10/26/19 10/26/19 15:12 15:12 15:12 WBC 42.0 H* RBC 4.05 Hgb 11.1 L Hct 34.1 L MCV 84 MCH 27.5 MCHC 32.6 RDW 15.4 H Plt Count 560 H Seg Neutrophils % Not Reportable Retic Count (auto) Carbonic Acid HCO3/H2CO3 Ratio ABG pH ABG pCO2 ABG pO2 ABG HCO3 ABG O2 Saturation ABG Base Excess FiO2 Sodium Cancelled Potassium Cancelled Chloride Cancelled Carbon Dioxide Cancelled Anion Gap Cancelled BUN Cancelled Creatinine Cancelled Est GFR ( Amer) Cancelled Est GFR (Non-Af Amer) Cancelled Glucose Cancelled Lactic Acid Calcium Cancelled Phosphorus Magnesium Iron TIBC % Saturation Ferritin Total Bilirubin Cancelled AST Cancelled Alkaline Phosphatase Cancelled Total Protein Cancelled Albumin Cancelled Triglycerides Cholesterol LDL Cholesterol Direct VLDL Cholesterol HDL Cholesterol Vitamin B12 Folate TSH 2.28 Urine Color Urine Appearance Urine pH Ur Specific [place] Urine Protein Urine Glucose (UA) Urine Ketones Urine Blood Urine Nitrite Ur Leukocyte Esterase Urine WBC (Auto) Urine RBC (Auto) 10/26/19 10/26/19 10/26/19 15:12 16:08 16:08 WBC RBC Hgb Hct MCV MCH MCHC RDW Plt Count Seg Neutrophils % Retic Count (auto) 2.15 Carbonic Acid HCO3/H2CO3 Ratio ABG pH ABG pCO2 ABG pO2 ABG HCO3 ABG O2 Saturation ABG Base Excess FiO2 Sodium Potassium Chloride Carbon Dioxide Anion Gap BUN Creatinine Est GFR ( Amer) Est GFR (Non-Af Amer) Glucose Lactic Acid 2.4 H Calcium Phosphorus Magnesium 1.7 Iron TIBC % Saturation Ferritin Total Bilirubin AST Alkaline Phosphatase Total Protein Albumin Triglycerides Cholesterol LDL Cholesterol Direct VLDL Cholesterol HDL Cholesterol Vitamin B12 Folate TSH Urine Color Urine Appearance Urine pH Ur Specific [place] Urine Protein Urine Glucose (UA) Urine Ketones Urine Blood Urine Nitrite Ur Leukocyte Esterase Urine WBC (Auto) Urine RBC (Auto) 10/26/19 10/26/19 10/26/19 16:08 16:08 16:40 WBC RBC Hgb Hct MCV MCH MCHC RDW Plt Count Seg Neutrophils % Retic Count (auto) Carbonic Acid HCO3/H2CO3 Ratio ABG pH ABG pCO2 ABG pO2 ABG HCO3 ABG O2 Saturation ABG Base Excess FiO2 Sodium 127.4 L Potassium 3.4 L Chloride 95 L Carbon Dioxide 26 Anion Gap 6 BUN 12 Creatinine 0.44 L Est GFR ( Amer) > 60 Est GFR (Non-Af Amer) Glucose 118 H Lactic Acid Calcium 11.4 H Phosphorus Magnesium Iron 33.6 L TIBC 190 L % Saturation 18 Ferritin 1210.00 H Total Bilirubin 1.1 AST 65 H Alkaline Phosphatase 132 H Total Protein 6.6 Albumin 2.6 L Triglycerides Cholesterol LDL Cholesterol Direct VLDL Cholesterol HDL Cholesterol Vitamin B12 871.0 Folate 9.60 TSH Urine Color YELLOW Urine Appearance CLOUDY Urine pH 6.0 Ur Specific [place] 1.013 Urine Protein 30 H Urine Glucose (UA) NEGATIVE Urine Ketones NEGATIVE Urine Blood NEGATIVE Urine Nitrite NEGATIVE Ur Leukocyte Esterase NEGATIVE Urine WBC (Auto) 2 Urine RBC (Auto) 2 10/26/19 10/26/19 10/26/19 17:09 18:05 21:59 WBC RBC Hgb Hct MCV MCH MCHC RDW Plt Count Seg Neutrophils % Retic Count (auto) Carbonic Acid 1.03 L HCO3/H2CO3 Ratio 27:1 ABG pH 7.54 H ABG pCO2 34.3 L ABG pO2 80.0 ABG HCO3 28.4 H ABG O2 Saturation 97.0 ABG Base Excess 5.8 FiO2 ROOM AIR Sodium Potassium Chloride Carbon Dioxide Anion Gap BUN Creatinine Est GFR ( Amer) Est GFR (Non-Af Amer) Glucose Lactic Acid 1.8 1.9 Calcium Phosphorus Magnesium Iron TIBC % Saturation Ferritin Total Bilirubin AST Alkaline Phosphatase Total Protein Albumin Triglycerides Cholesterol LDL Cholesterol Direct VLDL Cholesterol HDL Cholesterol Vitamin B12 Folate TSH Urine Color Urine Appearance Urine pH Ur Specific [place] Urine Protein Urine Glucose (UA) Urine Ketones Urine Blood Urine Nitrite Ur Leukocyte Esterase Urine WBC (Auto) Urine RBC (Auto) 10/27/19 10/27/19 04:56 04:56 WBC 39.4 H* RBC 3.88 Hgb 10.7 L Hct 32.5 L MCV 84 MCH 27.6 MCHC 32.9 RDW 15.6 H Plt Count 453 H Seg Neutrophils % Retic Count (auto) 2.11 Carbonic Acid HCO3/H2CO3 Ratio ABG pH ABG pCO2 ABG pO2 ABG HCO3 ABG O2 Saturation ABG Base Excess FiO2 Sodium 130.9 L Potassium 3.9 Chloride 97 L Carbon Dioxide 29 Anion Gap 5 BUN 8 Creatinine 0.47 L Est GFR ( Amer) > 60 Est GFR (Non-Af Amer) Glucose 90 Lactic Acid Calcium 11.7 H Phosphorus 2.7 Magnesium 1.7 Iron 24.8 L TIBC 170 L % Saturation 15 Ferritin 1150.00 H Total Bilirubin 1.4 H AST 38 H Alkaline Phosphatase 121 Total Protein 6.0 L Albumin 2.3 L Triglycerides 74 Cholesterol 100.37 LDL Cholesterol Direct 58 VLDL Cholesterol 15.0 HDL Cholesterol 23 L Vitamin B12 886.0 Folate 9.02 TSH Urine Color Urine Appearance Urine pH Ur Specific [place] Urine Protein Urine Glucose (UA) Urine Ketones Urine Blood Urine Nitrite Ur Leukocyte Esterase Urine WBC (Auto) Urine RBC (Auto) 10/26/19 10/26/19 10/26/19 15:12 15:12 16:08 Creatine Kinase Cancelled CK-MB (CK-2) Cancelled < 0.22 Troponin I Cancelled < 0.012 10/26/19 16:08 Creatine Kinase < 20 L CK-MB (CK-2) Troponin I Impressions: Abdomen/Pelvis CT 10/26/19 00:00 IMPRESSION: 1. Large circumferential rectal mass consistent with rectal carcinoma. Loss of the normal fat plane between the anterior rectal wall and the uterus is highly suggestive of local invasion. No evidence of perforation or peritoneal abscess. 2. There are multiple enlarged perirectal, left inguinal, left internal and common iliac, and retroperitoneal lymph nodes consistent with metastasis. 3. No acute abnormality in the chest. Chest X-Ray 10/26/19 00:00 IMPRESSION: NO ACUTE FINDINGS. Head CT 10/26/19 15:37 IMPRESSION: NO ACUTE INTRACRANIAL IMAGING FINDINGS. EVIDENCE OF ACUTE STROKE: NO. Chest CT 10/26/19 17:28 IMPRESSION: 1. Large circumferential rectal mass consistent with rectal carcinoma. Loss of the normal fat plane between the anterior rectal wall and the uterus is highly suggestive of local invasion. No evidence of perforation or peritoneal abscess. 2. There are multiple enlarged perirectal, left inguinal, left internal and common iliac, and retroperitoneal lymph nodes consistent with metastasis. 3. No acute abnormality in the chest. Status: Image reviewed by pa Assessment & Plan - Diagnosis (1) Rectal mass Is this a current diagnosis for this admission?: Yes Plan: Concerning picture for possible rectal cancer with lymph node spread, most lymph node spread would be reasonable except for the inguinal adenopathy. Inguinal adenopathy would be more consistent with either a vaginal or anal cancer. I have discussed case with Dr. Pedraza of general surgery, would like them to perform both colonoscopy as well as left inguinal lymph node biopsy is if it were to be rectal cancer, left inguinal node would be stage IV disease. - Time Time Spent: Greater than 70 Minutes - Inpatient Certification Based on my medical assessment, after consideration of the patient's c omorbidities, presenting symptoms, or acuity I expect that the services needed warrant INPATIENT care.: Yes I certify that my determination is in accordance with my understanding of Medicare's requirements for reasonable and necessary INPATIENT services [42 CFR 412.3e].: Yes Medical Necessity: Need For IV Fluids, Need for Surgery, Risk of Complication if Not Cared For in Hospital
[2019-10-27] MEDS: NORMAL SALINE 1000 ML 1,000 ML IV PRN ×2 (08:19→17:50)
[2019-10-27] MEDS ORDERED: ONDANSETRON HCL INJ/PF 4 MG/2 ML SDV IV PRN (08:30)
[2019-10-27] MEDS ORDERED: PEG 3350/NA SULF,BICARB,CL/KCL 4000 ML PO ONE (08:30)
[2019-10-27] MEDS: DOCUSATE SODIUM 100 MG CAPSULE PO SCH ×2 (09:28→17:11)
[2019-10-27] MEDS: PIPERACILLIN SODIUM/TAZOBACTAM 3.375 GM in NORMAL SALINE 100 ML IV SCH ×3 (09:28→20:52)
[2019-10-27] MEDS: FAMOTIDINE 20 MG TABLET PO SCH ×2 (09:28→22:44)
--- NOTE | 2019-10-27 10:16 | PDOC PROGRESS REPORT ---
Subjective Progress Note for:: 10/27/19 Reason For Visit: RECTAL MASS,PELVIC LYMPHADENOPATHY,LEUKOCYTOSIS Patient examined on the floor with Dr. Chau felix. Patient has some cognitive dysfunction. Denies having problems moving her bowels. Apparently she has never had a colonoscopy. Physical Exam Vital Signs: Temp Pulse Resp BP Pulse Ox 98.9 F 104 H 16 134/82 H 98 10/27/19 07:47 10/27/19 07:47 10/27/19 07:47 10/27/19 07:47 10/27/19 07:47 Intake & Output 10/26/19 10/27/19 10/28/19 06:59 06:59 06:59 Intake Total 2200 Output Total 280 Balance 1920 Weight 76.8 kg General appearance: PRESENT: no acute distress GI/Abdominal exam: PRESENT: other - Some tenderness to abdominal palpation. No peritoneal signs. There is a large left inguinal lymph node readily palpable. Rectal exam: PRESENT: other - Patient will be left lateral cubitus position. Rectal exam performed there is circumferential mass affect immediately within the rectal vault. Centrally in the rectal canal is patent to the extent my index finger. Results Laboratory Results: 10/27/19 04:56 10/27/19 04:56 10/26/19 10/26/19 10/26/19 15:12 15:12 15:12 WBC 42.0 H* RBC 4.05 Hgb 11.1 L Hct 34.1 L MCV 84 MCH 27.5 MCHC 32.6 RDW 15.4 H Plt Count 560 H Seg Neutrophils % Not Reportable Retic Count (auto) Carbonic Acid HCO3/H2CO3 Ratio ABG pH ABG pCO2 ABG pO2 ABG HCO3 ABG O2 Saturation ABG Base Excess FiO2 Sodium Cancelled Potassium Cancelled Chloride Cancelled Carbon Dioxide Cancelled Anion Gap Cancelled BUN Cancelled Creatinine Cancelled Est GFR ( Amer) Cancelled Est GFR (Non-Af Amer) Cancelled Glucose Cancelled Lactic Acid Calcium Cancelled Phosphorus Magnesium Iron TIBC % Saturation Ferritin Total Bilirubin Cancelled AST Cancelled Alkaline Phosphatase Cancelled Total Protein Cancelled Albumin Cancelled Triglycerides Cholesterol LDL Cholesterol Direct VLDL Cholesterol HDL Cholesterol Vitamin B12 Folate TSH 2.28 Urine Color Urine Appearance Urine pH Ur Specific [place] Urine Protein Urine Glucose (UA) Urine Ketones Urine Blood Urine Nitrite Ur Leukocyte Esterase Urine WBC (Auto) Urine RBC (Auto) 10/26/19 10/26/19 10/26/19 15:12 16:08 16:08 WBC RBC Hgb Hct MCV MCH MCHC RDW Plt Count Seg Neutrophils % Retic Count (auto) 2.15 Carbonic Acid HCO3/H2CO3 Ratio ABG pH ABG pCO2 ABG pO2 ABG HCO3 ABG O2 Saturation ABG Base Excess FiO2 Sodium Potassium Chloride Carbon Dioxide Anion Gap BUN Creatinine Est GFR ( Amer) Est GFR (Non-Af Amer) Glucose Lactic Acid 2.4 H Calcium Phosphorus Magnesium 1.7 Iron TIBC % Saturation Ferritin Total Bilirubin AST Alkaline Phosphatase Total Protein Albumin Triglycerides Cholesterol LDL Cholesterol Direct VLDL Cholesterol HDL Cholesterol Vitamin B12 Folate TSH Urine Color Urine Appearance Urine pH Ur Specific [place] Urine Protein Urine Glucose (UA) Urine Ketones Urine Blood Urine Nitrite Ur Leukocyte Esterase Urine WBC (Auto) Urine RBC (Auto) 10/26/19 10/26/19 10/26/19 16:08 16:08 16:40 WBC RBC Hgb Hct MCV MCH MCHC RDW Plt Count Seg Neutrophils % Retic Count (auto) Carbonic Acid HCO3/H2CO3 Ratio ABG pH ABG pCO2 ABG pO2 ABG HCO3 ABG O2 Saturation ABG Base Excess FiO2 Sodium 127.4 L Potassium 3.4 L Chloride 95 L Carbon Dioxide 26 Anion Gap 6 BUN 12 Creatinine 0.44 L Est GFR ( Amer) > 60 Est GFR (Non-Af Amer) Glucose 118 H Lactic Acid Calcium 11.4 H Phosphorus Magnesium Iron 33.6 L TIBC 190 L % Saturation 18 Ferritin 1210.00 H Total Bilirubin 1.1 AST 65 H Alkaline Phosphatase 132 H Total Protein 6.6 Albumin 2.6 L Triglycerides Cholesterol LDL Cholesterol Direct VLDL Cholesterol HDL Cholesterol Vitamin B12 871.0 Folate 9.60 TSH Urine Color YELLOW Urine Appearance CLOUDY Urine pH 6.0 Ur Specific [place] 1.013 Urine Protein 30 H Urine Glucose (UA) NEGATIVE Urine Ketones NEGATIVE Urine Blood NEGATIVE Urine Nitrite NEGATIVE Ur Leukocyte Esterase NEGATIVE Urine WBC (Auto) 2 Urine RBC (Auto) 2 10/26/19 10/26/19 10/26/19 17:09 18:05 21:59 WBC RBC Hgb Hct MCV MCH MCHC RDW Plt Count Seg Neutrophils % Retic Count (auto) Carbonic Acid 1.03 L HCO3/H2CO3 Ratio 27:1 ABG pH 7.54 H ABG pCO2 34.3 L ABG pO2 80.0 ABG HCO3 28.4 H ABG O2 Saturation 97.0 ABG Base Excess 5.8 FiO2 ROOM AIR Sodium Potassium Chloride Carbon Dioxide Anion Gap BUN Creatinine Est GFR ( Amer) Est GFR (Non-Af Amer) Glucose Lactic Acid 1.8 1.9 Calcium Phosphorus Magnesium Iron TIBC % Saturation Ferritin Total Bilirubin AST Alkaline Phosphatase Total Protein Albumin Triglycerides Cholesterol LDL Cholesterol Direct VLDL Cholesterol HDL Cholesterol Vitamin B12 Folate TSH Urine Color Urine Appearance Urine pH Ur Specific [place] Urine Protein Urine Glucose (UA) Urine Ketones Urine Blood Urine Nitrite Ur Leukocyte Esterase Urine WBC (Auto) Urine RBC (Auto) 10/27/19 10/27/19 04:56 04:56 WBC 39.4 H* RBC 3.88 Hgb 10.7 L Hct 32.5 L MCV 84 MCH 27.6 MCHC 32.9 RDW 15.6 H Plt Count 453 H Seg Neutrophils % Retic Count (auto) 2.11 Carbonic Acid HCO3/H2CO3 Ratio ABG pH ABG pCO2 ABG pO2 ABG HCO3 ABG O2 Saturation ABG Base Excess FiO2 Sodium 130.9 L Potassium 3.9 Chloride 97 L Carbon Dioxide 29 Anion Gap 5 BUN 8 Creatinine 0.47 L Est GFR ( Amer) > 60 Est GFR (Non-Af Amer) Glucose 90 Lactic Acid Calcium 11.7 H Phosphorus 2.7 Magnesium 1.7 Iron 24.8 L TIBC 170 L % Saturation 15 Ferritin 1150.00 H Total Bilirubin 1.4 H AST 38 H Alkaline Phosphatase 121 Total Protein 6.0 L Albumin 2.3 L Triglycerides 74 Cholesterol 100.37 LDL Cholesterol Direct 58 VLDL Cholesterol 15.0 HDL Cholesterol 23 L Vitamin B12 886.0 Folate 9.02 TSH Urine Color Urine Appearance Urine pH Ur Specific [place] Urine Protein Urine Glucose (UA) Urine Ketones Urine Blood Urine Nitrite Ur Leukocyte Esterase Urine WBC (Auto) Urine RBC (Auto) 10/26/19 10/26/19 10/26/19 15:12 15:12 16:08 Creatine Kinase Cancelled CK-MB (CK-2) Cancelled < 0.22 Troponin I Cancelled < 0.012 10/26/19 16:08 Creatine Kinase < 20 L CK-MB (CK-2) Troponin I Impressions: Abdomen/Pelvis CT 10/26/19 00:00 IMPRESSION: 1. Large circumferential rectal mass consistent with rectal carcinoma. Loss of the normal fat plane between the anterior rectal wall and the uterus is highly suggestive of local invasion. No evidence of perforation or peritoneal abscess. 2. There are multiple enlarged perirectal, left inguinal, left internal and common iliac, and retroperitoneal lymph nodes consistent with metastasis. 3. No acute abnormality in the chest. Chest X-Ray 10/26/19 00:00 IMPRESSION: NO ACUTE FINDINGS. Head CT 10/26/19 15:37 IMPRESSION: NO ACUTE INTRACRANIAL IMAGING FINDINGS. EVIDENCE OF ACUTE STROKE: NO. Chest CT 10/26/19 17:28 IMPRESSION: 1. Large circumferential rectal mass consistent with rectal carcinoma. Loss of the normal fat plane between the anterior rectal wall and the uterus is highly suggestive of local invasion. No evidence of perforation or peritoneal abscess. 2. There are multiple enlarged perirectal, left inguinal, left internal and common iliac, and retroperitoneal lymph nodes consistent with metastasis. 3. No acute abnormality in the chest. Assessment & Plan - Diagnosis (1) Rectal carcinoma Is this a current diagnosis for this admission?: Yes Plan: Impression: Neglected, massive rectal tumor with questionable surrounding structure invasion, pelvic lymphadenopathy and left groin adenopathy Recommendations: 1. Discussed with ; will attempt a limited bowel prep, and at least proctoscopy possible colonoscopy pending holiday of prep. Will obtain a rectal mass biopsies 2. We will also performed core biopsy left groin mass under local anesthesia. (2) Left groin mass Is this a current diagnosis for this admission?: Yes (3) Hypercalcemia Is this a current diagnosis for this admission?: Yes (4) Rectal mass Is this a current diagnosis for this admission?: Yes
--- NOTE | 2019-10-27 12:13 | PDOC PROGRESS REPORT ---
Subjective Progress Note for:: 10/27/19 Subjective:: The patient is resting comfortably in bed. Her main complaint is the GoLYTELY bowel prep. She denies any pain and is not short of breath. The plan is for biopsy of a lymph node in the groin and colonoscopy today. Reason For Visit: RECTAL MASS,PELVIC LYMPHADENOPATHY,LEUKOCYTOSIS Physical Exam Vital Signs: Temp Pulse Resp BP Pulse Ox 98.9 F 104 H 16 134/82 H 98 10/27/19 07:47 10/27/19 07:47 10/27/19 07:47 10/27/19 07:47 10/27/19 07:47 Intake & Output 10/26/19 10/27/19 10/28/19 06:59 06:59 06:59 Intake Total 2200 100 Output Total 280 Balance 1920 100 Weight 76.8 kg General appearance: PRESENT: no acute distress, cooperative, well-developed Head exam: PRESENT: atraumatic, normocephalic Ear exam: PRESENT: normal external ear exam. ABSENT: bleeding, drainage Mouth exam: PRESENT: moist, tongue midline Teeth exam: ABSENT: edentulous Respiratory exam: PRESENT: clear to auscultation sakina, symmetrical, unlabored. ABSENT: accessory muscle use, prolonged expiratory phas, rales, rhonchi, tachypnea, wheezes Cardiovascular exam: PRESENT: RRR, +S1, +S2. ABSENT: bradycardia, diastolic murmur, irregular rhythm, systolic murmur, tachycardia GI/Abdominal exam: PRESENT: normal bowel sounds, soft. ABSENT: distended, tenderness Rectal exam: PRESENT: deferred, other - See colonoscopy report Gentrourinary exam: ABSENT: indwelling catheter Extremities exam: ABSENT: pedal edema Musculoskeletal exam: PRESENT: ambulatory, normal inspection. ABSENT: deformity, dislocation Neurological exam: PRESENT: alert, awake, oriented to person, oriented to place, oriented to time, oriented to situation, CN II-XII grossly intact. ABSENT: altered Psychiatric exam: PRESENT: appropriate affect. ABSENT: agitated, anxious Focused psych exam: ABSENT: delusional, paranoid, restlessness Results Laboratory Results: 10/27/19 04:56 10/27/19 04:56 10/26/19 10/26/19 10/26/19 15:12 15:12 15:12 WBC 42.0 H* RBC 4.05 Hgb 11.1 L Hct 34.1 L MCV 84 MCH 27.5 MCHC 32.6 RDW 15.4 H Plt Count 560 H Seg Neutrophils % Not Reportable Retic Count (auto) Carbonic Acid HCO3/H2CO3 Ratio ABG pH ABG pCO2 ABG pO2 ABG HCO3 ABG O2 Saturation ABG Base Excess FiO2 Sodium Cancelled Potassium Cancelled Chloride Cancelled Carbon Dioxide Cancelled Anion Gap Cancelled BUN Cancelled Creatinine Cancelled Est GFR ( Amer) Cancelled Est GFR (Non-Af Amer) Cancelled Glucose Cancelled Lactic Acid Calcium Cancelled Phosphorus Magnesium Iron TIBC % Saturation Ferritin Total Bilirubin Cancelled AST Cancelled Alkaline Phosphatase Cancelled Total Protein Cancelled Albumin Cancelled Triglycerides Cholesterol LDL Cholesterol Direct VLDL Cholesterol HDL Cholesterol Vitamin B12 Folate TSH 2.28 Urine Color Urine Appearance Urine pH Ur Specific [place] Urine Protein Urine Glucose (UA) Urine Ketones Urine Blood Urine Nitrite Ur Leukocyte Esterase Urine WBC (Auto) Urine RBC (Auto) 10/26/19 10/26/19 10/26/19 15:12 16:08 16:08 WBC RBC Hgb Hct MCV MCH MCHC RDW Plt Count Seg Neutrophils % Retic Count (auto) 2.15 Carbonic Acid HCO3/H2CO3 Ratio ABG pH ABG pCO2 ABG pO2 ABG HCO3 ABG O2 Saturation ABG Base Excess FiO2 Sodium Potassium Chloride Carbon Dioxide Anion Gap BUN Creatinine Est GFR ( Amer) Est GFR (Non-Af Amer) Glucose Lactic Acid 2.4 H Calcium Phosphorus Magnesium 1.7 Iron TIBC % Saturation Ferritin Total Bilirubin AST Alkaline Phosphatase Total Protein Albumin Triglycerides Cholesterol LDL Cholesterol Direct VLDL Cholesterol HDL Cholesterol Vitamin B12 Folate TSH Urine Color Urine Appearance Urine pH Ur Specific [place] Urine Protein Urine Glucose (UA) Urine Ketones Urine Blood Urine Nitrite Ur Leukocyte Esterase Urine WBC (Auto) Urine RBC (Auto) 10/26/19 10/26/19 10/26/19 16:08 16:08 16:40 WBC RBC Hgb Hct MCV MCH MCHC RDW Plt Count Seg Neutrophils % Retic Count (auto) Carbonic Acid HCO3/H2CO3 Ratio ABG pH ABG pCO2 ABG pO2 ABG HCO3 ABG O2 Saturation ABG Base Excess FiO2 Sodium 127.4 L Potassium 3.4 L Chloride 95 L Carbon Dioxide 26 Anion Gap 6 BUN 12 Creatinine 0.44 L Est GFR ( Amer) > 60 Est GFR (Non-Af Amer) Glucose 118 H Lactic Acid Calcium 11.4 H Phosphorus Magnesium Iron 33.6 L TIBC 190 L % Saturation 18 Ferritin 1210.00 H Total Bilirubin 1.1 AST 65 H Alkaline Phosphatase 132 H Total Protein 6.6 Albumin 2.6 L Triglycerides Cholesterol LDL Cholesterol Direct VLDL Cholesterol HDL Cholesterol Vitamin B12 871.0 Folate 9.60 TSH Urine Color YELLOW Urine Appearance CLOUDY Urine pH 6.0 Ur Specific [place] 1.013 Urine Protein 30 H Urine Glucose (UA) NEGATIVE Urine Ketones NEGATIVE Urine Blood NEGATIVE Urine Nitrite NEGATIVE Ur Leukocyte Esterase NEGATIVE Urine WBC (Auto) 2 Urine RBC (Auto) 2 10/26/19 10/26/19 10/26/19 17:09 18:05 21:59 WBC RBC Hgb Hct MCV MCH MCHC RDW Plt Count Seg Neutrophils % Retic Count (auto) Carbonic Acid 1.03 L HCO3/H2CO3 Ratio 27:1 ABG pH 7.54 H ABG pCO2 34.3 L ABG pO2 80.0 ABG HCO3 28.4 H ABG O2 Saturation 97.0 ABG Base Excess 5.8 FiO2 ROOM AIR Sodium Potassium Chloride Carbon Dioxide Anion Gap BUN Creatinine Est GFR ( Amer) Est GFR (Non-Af Amer) Glucose Lactic Acid 1.8 1.9 Calcium Phosphorus Magnesium Iron TIBC % Saturation Ferritin Total Bilirubin AST Alkaline Phosphatase Total Protein Albumin Triglycerides Cholesterol LDL Cholesterol Direct VLDL Cholesterol HDL Cholesterol Vitamin B12 Folate TSH Urine Color Urine Appearance Urine pH Ur Specific [place] Urine Protein Urine Glucose (UA) Urine Ketones Urine Blood Urine Nitrite Ur Leukocyte Esterase Urine WBC (Auto) Urine RBC (Auto) 10/27/19 10/27/19 04:56 04:56 WBC 39.4 H* RBC 3.88 Hgb 10.7 L Hct 32.5 L MCV 84 MCH 27.6 MCHC 32.9 RDW 15.6 H Plt Count 453 H Seg Neutrophils % Retic Count (auto) 2.11 Carbonic Acid HCO3/H2CO3 Ratio ABG pH ABG pCO2 ABG pO2 ABG HCO3 ABG O2 Saturation ABG Base Excess FiO2 Sodium 130.9 L Potassium 3.9 Chloride 97 L Carbon Dioxide 29 Anion Gap 5 BUN 8 Creatinine 0.47 L Est GFR ( Amer) > 60 Est GFR (Non-Af Amer) Glucose 90 Lactic Acid Calcium 11.7 H Phosphorus 2.7 Magnesium 1.7 Iron 24.8 L TIBC 170 L % Saturation 15 Ferritin 1150.00 H Total Bilirubin 1.4 H AST 38 H Alkaline Phosphatase 121 Total Protein 6.0 L Albumin 2.3 L Triglycerides 74 Cholesterol 100.37 LDL Cholesterol Direct 58 VLDL Cholesterol 15.0 HDL Cholesterol 23 L Vitamin B12 886.0 Folate 9.02 TSH Urine Color Urine Appearance Urine pH Ur Specific [place] Urine Protein Urine Glucose (UA) Urine Ketones Urine Blood Urine Nitrite Ur Leukocyte Esterase Urine WBC (Auto) Urine RBC (Auto) 10/26/19 10/26/19 10/26/19 15:12 15:12 16:08 Creatine Kinase Cancelled CK-MB (CK-2) Cancelled < 0.22 Troponin I Cancelled < 0.012 10/26/19 16:08 Creatine Kinase < 20 L CK-MB (CK-2) Troponin I Impressions: Abdomen/Pelvis CT 10/26/19 00:00 IMPRESSION: 1. Large circumferential rectal mass consistent with rectal carcinoma. Loss of the normal fat plane between the anterior rectal wall and the uterus is highly suggestive of local invasion. No evidence of perforation or peritoneal abscess. 2. There are multiple enlarged perirectal, left inguinal, left internal and common iliac, and retroperitoneal lymph nodes consistent with metastasis. 3. No acute abnormality in the chest. Chest X-Ray 10/26/19 00:00 IMPRESSION: NO ACUTE FINDINGS. Head CT 10/26/19 15:37 IMPRESSION: NO ACUTE INTRACRANIAL IMAGING FINDINGS. EVIDENCE OF ACUTE STROKE: NO. Chest CT 10/26/19 17:28 IMPRESSION: 1. Large circumferential rectal mass consistent with rectal carcinoma. Loss of the normal fat plane between the anterior rectal wall and the uterus is highly suggestive of local invasion. No evidence of perforation or peritoneal abscess. 2. There are multiple enlarged perirectal, left inguinal, left internal and common iliac, and retroperitoneal lymph nodes consistent with metastasis. 3. No acute abnormality in the chest. Assessment and Plan - Diagnosis (1) Rectal carcinoma Is this a current diagnosis for this admission?: Yes Plan: The patient underwent endoscopy today. Please see colonoscopy report and CT scan of the abdomen. There is a large rectal mass that extends proximally. There are multiple lymph nodes in various locations in the pelvis. Left groin lymph node biopsy and colonoscopy with multiple cold forcep biopsies obtained earlier today and sent to pathology. Oncology will be seeing the patient as well. (2) Pelvic lymphadenopathy Is this a current diagnosis for this admission?: Yes Plan: See above (3) Hypercalcemia Is this a current diagnosis for this admission?: Yes Plan: IV fluids. Likely related to the malignancy. Recheck chemistries tomorrow. (4) Hyponatremia Is this a current diagnosis for this admission?: Yes Plan: Continue to monitor. Hyponatremia is mild. Will likely correct with IV fluids. (5) Leukocytosis Qualifiers: Leukocytosis type: unspecified Qualified Code(s): D72.829 - Elevated white blood cell count, unspecified Is this a current diagnosis for this admission?: Yes Plan: Continue antibiotic therapy. Blood cultures pending. Urinalysis did not suggest urinary tract infection. (6) Anemia Qualifiers: Anemia type: iron deficiency Iron deficiency anemia type: unspecified iron deficiency Qualified Code(s): D50.9 - Iron deficiency anemia, unspecified Is this a current diagnosis for this admission?: Yes Plan: Iron deficiency anemia most likely due to chronic low-grade blood loss from malignancy. Poor dietary intake could also be contributing. (7) Respiratory alkalosis Is this a current diagnosis for this admission?: Yes Plan: Reassess after IV fluids. - Plan Summary Summary: Patient will be admitted to the medical floor where she will receive routine supportive and symptomatic cares. She will be treated with IV Zosyn empirically at the direction of Dr. Sands. Dr. Sands will be consulted for hematology/o ncology evaluation. Dr. Jey Rojas will be consulted for surgical evaluation and treatment. Patient will receive Ativan 1 mg IV every 4 hours as needed for anxiety or restlessness. She will receive morphine sulfate 2 to 4 mg IV every 2 hours as needed pain. She will be maintained on a regular diet. CBCs, metabolic profiles, magnesium levels and additional laboratory and/or radiographic evaluations will be obtained as appropriate. - Time Time Spent with patient: 15-24 minutes Medications reviewed and adjusted accordingly: Yes
[2019-10-27] MEDS ORDERED: MIDAZOLAM 2 MG/2 ML INJ ONE (12:30)
[2019-10-27] MEDS ORDERED: FENTANYL CITRATE INJ/PF 100 MCG/2 ML AMPUL ONE (12:30)
[2019-10-27] MEDS ORDERED: PROPOFOL INJ 200 MG/20 ML VIAL IV ONE (12:31)
[2019-10-27] MEDS ORDERED: LIDOCAINE 1%/EPINEPHRINE INJ 20 ML VIAL ONE (12:40)
[2019-10-27] MEDS ORDERED: MORPHINE SULFATE 10 MG/ML INJ IV PRN ×5 (13:18→14:30)
[2019-10-27] MEDS ORDERED: FENTANYL CITRATE INJ/PF 100 MCG/2 ML AMPUL IV PRN ×3 (13:18)
[2019-10-27] MEDS ORDERED: MEPERIDINE HCL/PF INJ 25 MG/1 ML DISP.SYRIN IV PRN (13:18)
[2019-10-27] MEDS ORDERED: DIPHENHYDRAMINE HCL 50 MG/ML VIAL IV PRN (13:18)
[2019-10-27] MEDS ORDERED: PROMETHAZINE HCL INJ 25 MG/1 ML VIAL IV PRN ×2 (13:18)
[2019-10-27 13:37] LABS: PATH REVIEW PATHOLOGIST REVIEWED
--- NOTE | 2019-10-27 13:56 | Operative Report ---
Operative Report DATE OF SURGERY: 10/27/19 PREOPERATIVE DIAGNOSIS: 1. Large rectal mass consistent with locally advanced rectal carcinoma. 2. Malnutrition. 3. Hypercalcemia. 4. Pelvic lymphadenopathy including enlarged left groin lymph node POSTOPERATIVE DIAGNOSIS: Same with diverticulosis OPERATION: 1. Ultrasound directed core biopsy 14-gauge left groin mass. 2. Colonoscopy to 75 cm from anal verge. 3. Multiple endoscopic biopsies of endoluminal component of rectal cancer SURGEON: ABDIRASHID ROBLEDO ANESTHESIA: LMAC TISSUE REMOVED OR ALTERED: See below COMPLICATIONS: None ESTIMATED BLOOD LOSS: Scant INTRAOPERATIVE FINDINGS: See below PROCEDURE: The patient was taken to the preop holding area to the main operating room where LMAC anesthesia was induced. A new right upper extremity peripheral IV was established. Groin was exposed on the left side, shaved of hair, prepped and draped sterile fashion Surgical plan and surgical timeout conducted. The variable frequency linear transducer was used to scan the left groin. There is a 3+ centimeter enlarged lymph node consistent with metastatic cancer. Skin was anesthetized 1% plain lidocaine, a raul made in the skin with 11 blade, and using a hand-held, spring-loaded disposable 14-gauge mammotome, 3 cores were taken of the left groin mass. All were sent in formalin for histologic analysis. Bleeding was negligible. The patient was now placed in the extreme left lateral cubitus position. Knees to chest position. A rectal exam was performed. Again readily palpable mass just beyond the anal verge at the dentate line as far as the index finger could palpate in a near circumferential fashion. No hany obstruction however. The flexible adult colonoscope was advanced to the anorectal canal all the way to 75 cm from anal verge. We then encountered a significant amount of stool so the procedure was terminated. The scope was withdrawn, visualizing sigmoid diverticulosis. The rectal malignancy starts at approximately 15 cm from the anal verge, and extends distally to the dentate line with a circumferential components some fungating, some bleeding with endoscopic manipulation. Multiple cold forceps biopsies were obtained from different segments of the malignancy. Specimens were sent from this tumor mass in the same container, in formalin for permanent pathologic analysis. The tumor appears to be nonobstructing. Scope was withdrawn. Patient tolerated procedure well Plan: 1. Await biopsies 2. We will discuss with E; patient will require a complete colonoscopy with formal bowel prep in the future.
[2019-10-27] MEDS: MELATONIN 5 MG TABLET PO PRN (22:45)
[2019-10-28] MEDS: PIPERACILLIN SODIUM/TAZOBACTAM 3.375 GM in NORMAL SALINE 100 ML IV SCH ×4 (04:21→21:23)
[2019-10-28] MEDS: HEPARIN SOD (PORCINE) 5,000 UNIT/ML 1 ML VIAL SUBCUT SCH ×3 (05:17→21:23)
[2019-10-28 07:01] LABS: ALBUMIN 2.4 g/dL (3.5-5.0); ANION GAP 5 (5-19); BLOOD UREA NITROGEN 8 mg/dL (7-20); CALCIUM 11.5 mg/dL (8.4-10.2); CARBON DIOXIDE 26 mmol/L (22-30); CHLORIDE 103 mmol/L (98-107); GLUCOSE 98 mg/dL (75-110); PHOSPHORUS 2.9 mg/dL (2.5-4.5); POTASSIUM 3.3 mmol/L (3.6-5.0)
[2019-10-28 07:25] LABS: HEMATOCRIT 32.3 % (36.0-47.0); HEMOGLOBIN 10.4 g/dL (12.0-15.5); MEAN CORPUSCULAR HEMOGLOBIN 27.1 pg (27.0-33.4); MEAN CORPUSCULAR HGB CONC 32.3 g/dL (32.0-36.0); MEAN CORPUSCULAR VOLUME 84 fl (80-97); PLATELET COUNT 459 10^3/uL (150-450); RED BLOOD COUNT 3.85 10^6/uL (3.72-5.28); RED CELL DISTRIBUTION WIDTH 15.8 % (11.5-14.0)
[2019-10-28 07:28] LABS: WHITE BLOOD COUNT 38.9 10^3/uL (4.0-10.5)
--- NOTE | 2019-10-28 08:32 | PDOC PROGRESS REPORT ---
Subjective Progress Note for:: 10/28/19 Subjective:: feels ok no c/o pain Reason For Visit: RECTAL MASS,PELVIC LYMPHADENOPATHY,LEUKOCYTOSIS Physical Exam Vital Signs: Temp Pulse Resp BP Pulse Ox 98.5 F 92 18 136/88 H 98 10/27/19 23:18 10/27/19 23:18 10/27/19 23:18 10/27/19 23:18 10/27/19 23:18 Intake & Output 10/27/19 10/28/19 10/29/19 06:59 06:59 06:59 Intake Total 2200 1850 Output Total 280 Balance 1920 1850 Weight 76.8 kg 70.4 kg General appearance: PRESENT: disheveled, obese Head exam: PRESENT: atraumatic Ear exam: PRESENT: normal external ear exam Mouth exam: PRESENT: dry mucosa Neck exam: PRESENT: full ROM Respiratory exam: PRESENT: clear to auscultation sakina Cardiovascular exam: PRESENT: RRR Pulses: PRESENT: normal femoral pulses, normal dorsalis pedis pul Breast: PRESENT: Normal GI/Abdominal exam: PRESENT: soft Rectal exam: PRESENT: deferred Gentrourinary exam: PRESENT: other Extremities exam: PRESENT: full ROM Musculoskeletal exam: PRESENT: full ROM Neurological exam: PRESENT: awake, oriented to person Psychiatric exam: PRESENT: appropriate affect Skin exam: PRESENT: dry Results Laboratory Results: 10/28/19 06:25 10/28/19 06:25 10/28/19 10/28/19 06:25 06:25 WBC 38.9 H* RBC 3.85 Hgb 10.4 L Hct 32.3 L MCV 84 MCH 27.1 MCHC 32.3 RDW 15.8 H Plt Count 459 H Sodium 133.8 L Potassium 3.3 L Chloride 103 Carbon Dioxide 26 Anion Gap 5 BUN 8 Creatinine 0.44 L Est GFR ( Amer) > 60 Glucose 98 Calcium 11.5 H Phosphorus 2.9 Magnesium 1.7 Albumin 2.4 L 10/26/19 10/26/19 10/26/19 15:12 15:12 16:08 Creatine Kinase Cancelled CK-MB (CK-2) Cancelled < 0.22 Troponin I Cancelled < 0.012 10/26/19 16:08 Creatine Kinase < 20 L CK-MB (CK-2) Troponin I Impressions: Abdomen/Pelvis CT 10/26/19 00:00 IMPRESSION: 1. Large circumferential rectal mass consistent with rectal carcinoma. Loss of the normal fat plane between the anterior rectal wall and the uterus is highly suggestive of local invasion. No evidence of perforation or peritoneal abscess. 2. There are multiple enlarged perirectal, left inguinal, left internal and common iliac, and retroperitoneal lymph nodes consistent with metastasis. 3. No acute abnormality in the chest. Chest X-Ray 10/26/19 00:00 IMPRESSION: NO ACUTE FINDINGS. Head CT 10/26/19 15:37 IMPRESSION: NO ACUTE INTRACRANIAL IMAGING FINDINGS. EVIDENCE OF ACUTE STROKE: NO. Chest CT 10/26/19 17:28 IMPRESSION: 1. Large circumferential rectal mass consistent with rectal carcinoma. Loss of the normal fat plane between the anterior rectal wall and the uterus is highly suggestive of local invasion. No evidence of perforation or peritoneal abscess. 2. There are multiple enlarged perirectal, left inguinal, left internal and common iliac, and retroperitoneal lymph nodes consistent with metastasis. 3. No acute abnormality in the chest. Assessment & Plan - Plan Summary Plan Summary: prob advanced rectal cancer s/p lymph node and rectal bx yesterday now doing ok awaiting path results no indication for surgery intervention at this time surgery will sign off at this time and please reconsult if necessary.
[2019-10-28] MEDS: FERROUS SULFATE 325 MG TABLET PO SCH ×2 (09:47→17:19)
[2019-10-28] MEDS: FAMOTIDINE 20 MG TABLET PO SCH ×2 (09:47→21:23)
[2019-10-28] MEDS: DOCUSATE SODIUM 100 MG CAPSULE PO SCH ×2 (09:48→17:19)
[2019-10-28] MEDS: NORMAL SALINE 1000 ML 1,000 ML IV PRN (16:09)
[2019-10-28] MEDS ORDERED: POTASSIUM CHLORIDE 10 MEQ TABLET.ER PO ONE (18:17)
--- NOTE | 2019-10-28 18:30 | PDOC PROGRESS REPORT ---
Subjective Progress Note for:: 10/28/19 Subjective:: Patient was seen on morning rounds. She is found resting in bed, comfortably, on room air, while eating her breakfast. She is noted be on a clear liquid diet. She is alert and oriented to person, place, a year, situation; however, is noted to be forgetful and somewhat confused on more detailed/higher level discussion. She states that she is feeling well; notes that she is hungry and request to advance her diet. Otherwise, she has no new questions or concerns at this time. She specifically denies fever, chest pain, palpitations, dyspnea, abdominal pain, nausea and vomiting. She has no questions or concerns. No concerns per nursing. Reason For Visit: RECTAL MASS,PELVIC LYMPHADENOPATHY,LEUKOCYTOSIS Physical Exam Vital Signs: Temp Pulse Resp BP Pulse Ox 97.9 F 84 16 123/74 98 10/28/19 15:09 10/28/19 15:09 10/28/19 15:09 10/28/19 15:09 10/28/19 15:09 Intake & Output 10/27/19 10/28/19 10/29/19 06:59 06:59 06:59 Intake Total 2200 2950 980 Output Total 280 Balance 1920 2950 980 Weight 76.8 kg 70.4 kg General appearance: PRESENT: no acute distress, cooperative, well-developed, well-nourished Head exam: PRESENT: atraumatic, normocephalic Eye exam: PRESENT: conjunctiva pink, EOMI, PERRLA. ABSENT: scleral icterus Mouth exam: PRESENT: moist, tongue midline Teeth exam: PRESENT: edentulous Respiratory exam: PRESENT: clear to auscultation sakina, symmetrical, unlabored, other - Room air. ABSENT: rales, rhonchi, wheezes Cardiovascular exam: PRESENT: RRR, +S1, +S2. ABSENT: diastolic murmur, rubs, systolic murmur Pulses: PRESENT: normal dorsalis pedis pul Vascular exam: PRESENT: normal capillary refill GI/Abdominal exam: PRESENT: normal bowel sounds, soft. ABSENT: distended, guarding, mass, organolmegaly, rebound, tenderness Rectal exam: PRESENT: deferred Gentrourinary exam: PRESENT: indwelling catheter Extremities exam: PRESENT: full ROM. ABSENT: calf tenderness, clubbing, pedal edema Neurological exam: PRESENT: alert, awake, oriented to person, oriented to place, oriented to time, oriented to situation, CN II-XII grossly intact, other - Intermittent confusion/forgetfulness. ABSENT: motor sensory deficit Psychiatric exam: PRESENT: appropriate affect, normal mood. ABSENT: homicidal ideation, suicidal ideation Skin exam: PRESENT: dry, intact, warm. ABSENT: cyanosis, rash Results Laboratory Results: 10/28/19 06:25 10/28/19 06:25 10/28/19 10/28/19 06:25 06:25 WBC 38.9 H* RBC 3.85 Hgb 10.4 L Hct 32.3 L MCV 84 MCH 27.1 MCHC 32.3 RDW 15.8 H Plt Count 459 H Sodium 133.8 L Potassium 3.3 L Chloride 103 Carbon Dioxide 26 Anion Gap 5 BUN 8 Creatinine 0.44 L Est GFR ( Amer) > 60 Glucose 98 Calcium 11.5 H Phosphorus 2.9 Magnesium 1.7 Albumin 2.4 L 10/26/19 10/26/19 10/26/19 15:12 15:12 16:08 Creatine Kinase Cancelled CK-MB (CK-2) Cancelled < 0.22 Troponin I Cancelled < 0.012 10/26/19 16:08 Creatine Kinase < 20 L CK-MB (CK-2) Troponin I Impressions: Abdomen/Pelvis CT 10/26/19 00:00 IMPRESSION: 1. Large circumferential rectal mass consistent with rectal carcinoma. Loss of the normal fat plane between the anterior rectal wall and the uterus is highly suggestive of local invasion. No evidence of perforation or peritoneal abscess. 2. There are multiple enlarged perirectal, left inguinal, left internal and common iliac, and retroperitoneal lymph nodes consistent with metastasis. 3. No acute abnormality in the chest. Chest X-Ray 10/26/19 00:00 IMPRESSION: NO ACUTE FINDINGS. Head CT 10/26/19 15:37 IMPRESSION: NO ACUTE INTRACRANIAL IMAGING FINDINGS. EVIDENCE OF ACUTE STROKE: NO. Chest CT 10/26/19 17:28 IMPRESSION: 1. Large circumferential rectal mass consistent with rectal carcinoma. Loss of the normal fat plane between the anterior rectal wall and the uterus is highly suggestive of local invasion. No evidence of perforation or peritoneal abscess. 2. There are multiple enlarged perirectal, left inguinal, left internal and common iliac, and retroperitoneal lymph nodes consistent with metastasis. 3. No acute abnormality in the chest. Assessment and Plan - Diagnosis (1) Anemia Qualifiers: Anemia type: iron deficiency Iron deficiency anemia type: unspecified iron deficiency Qualified Code(s): D50.9 - Iron deficiency anemia, unspecified Is this a current diagnosis for this admission?: Yes Plan: Iron deficiency anemia most likely due to chronic low-grade blood loss from malignancy. Poor dietary intake could also be contributing. Continue ferrous sulfate supplementation. Hematology/oncology consulted; primary plan per Dr. Sands. (2) Hypercalcemia Is this a current diagnosis for this admission?: Yes Plan: Likely related to the malignancy. Overall stable; 11.4-> 11.7-> 11.5 Continue IV fluids. Hematology/oncology consulted. Primary management per Dr. Sands. (3) Hyponatremia Is this a current diagnosis for this admission?: Yes Plan: Improved; 127.4-> 133.8 Likely secondary to poor p.o. intake Continue IV fluids. Advancing diet. Follow-up chemistries. (4) Leukocytosis Qualifiers: Leukocytosis type: unspecified Qualified Code(s): D72.829 - Elevated white blood cell count, unspecified Is this a current diagnosis for this admission?: Yes Plan: Blood cultures negative at 48 hours. Urinalysis negative for UTI. No evidence of infectious process on CT chest, abdomen/pelvis. Perhaps related to malignant process. She has been afebrile throughout admission. Currently on IV Zosyn; day #2. We will plan on discontinuing antibiotics if she remains afebrile and clinically stable tomorrow. Heme/ONC consulted. Monitor CBCs. (5) Rectal carcinoma Is this a current diagnosis for this admission?: Yes Plan: Large circumferential rectal mass consistent with rectal carcinoma and multiple enlarged perirectal inguinal, common iliac, and retroperitoneal lymphadenopathy consistent with metastasis noted on CT imaging. Now status post colonoscopy with biopsies, as well as, inguinal lymph node biopsy. Cytology pending. Oncology consulted; primary management per Dr. Sands. (6) Pelvic lymphadenopathy Is this a current diagnosis for this admission?: Yes Plan: See above (7) Respiratory alkalosis Is this a current diagnosis for this admission?: Yes Plan: Stable respiratory status. Monitor vital signs and chemistries. - Time Time Spent with patient: 35 or more minutes Medications reviewed and adjusted accordingly: Yes Anticipated discharge: Home Within: within 48 hours
[2019-10-28] MEDS: MELATONIN 5 MG TABLET PO PRN (21:23)
[2019-10-29] MEDS: NORMAL SALINE 1000 ML 1,000 ML IV PRN ×2 (01:16→05:10)
[2019-10-29] MEDS: PIPERACILLIN SODIUM/TAZOBACTAM 3.375 GM in NORMAL SALINE 100 ML IV SCH ×2 (03:59→08:56)
[2019-10-29] MEDS: HEPARIN SOD (PORCINE) 5,000 UNIT/ML 1 ML VIAL SUBCUT SCH ×2 (05:18→14:07)
[2019-10-29 06:01] LABS: HEMATOCRIT 30.8 % (36.0-47.0); HEMOGLOBIN 10.1 g/dL (12.0-15.5); MEAN CORPUSCULAR HEMOGLOBIN 27.6 pg (27.0-33.4); MEAN CORPUSCULAR HGB CONC 32.7 g/dL (32.0-36.0); MEAN CORPUSCULAR VOLUME 84 fl (80-97); PLATELET COUNT 468 10^3/uL (150-450); RED BLOOD COUNT 3.66 10^6/uL (3.72-5.28)
[2019-10-29 06:08] LABS: BLOOD UREA NITROGEN 5 mg/dL (7-20); CALCIUM 11.5 mg/dL (8.4-10.2); GLUCOSE 91 mg/dL (75-110); POTASSIUM 3.8 mmol/L (3.6-5.0)
[2019-10-29 06:13] LABS: CARBON DIOXIDE 24 mmol/L (22-30); CHLORIDE 106 mmol/L (98-107)
[2019-10-29 06:16] LABS: ANION GAP 4 (5-19)
[2019-10-29 06:35] LABS: WHITE BLOOD COUNT 37.7 10^3/uL (4.0-10.5)
--- NOTE | 2019-10-29 07:45 | PDOC PROGRESS REPORT ---
Subjective Progress Note for:: 10/29/19 Subjective:: Pt seems to be doing better. Today I will try to contact Arpit who is her only contact, will try to get him up to see her today and to get PT consult to see what level of deconditioning she has, she wants to advance diet Reason For Visit: RECTAL MASS,PELVIC LYMPHADENOPATHY,LEUKOCYTOSIS Physical Exam Vital Signs: Temp Pulse Resp BP Pulse Ox 97.6 F 91 18 142/96 H 97 10/29/19 00:06 10/29/19 00:06 10/29/19 00:06 10/29/19 00:06 10/29/19 00:06 Intake & Output 10/28/19 10/29/19 10/30/19 06:59 06:59 06:59 Intake Total 2950 3513 Balance 2950 3513 Weight 70.4 kg 72.4 kg General appearance: PRESENT: no acute distress, well-developed, well-nourished Head exam: PRESENT: atraumatic, normocephalic Eye exam: PRESENT: conjunctiva pink, EOMI, PERRLA. ABSENT: scleral icterus Ear exam: PRESENT: normal external ear exam Mouth exam: PRESENT: moist, tongue midline Neck exam: ABSENT: carotid bruit, JVD, lymphadenopathy, thyromegaly Respiratory exam: PRESENT: clear to auscultation sakina. ABSENT: rales, rhonchi, wheezes Cardiovascular exam: PRESENT: RRR. ABSENT: diastolic murmur, rubs, systolic murmur Pulses: PRESENT: normal dorsalis pedis pul Vascular exam: PRESENT: normal capillary refill GI/Abdominal exam: PRESENT: normal bowel sounds, soft. ABSENT: distended, guarding, mass, organolmegaly, rebound, tenderness Rectal exam: PRESENT: deferred Extremities exam: PRESENT: full ROM. ABSENT: calf tenderness, clubbing, pedal edema Neurological exam: PRESENT: alert, awake, oriented to person, oriented to place, oriented to time, oriented to situation, CN II-XII grossly intact. ABSENT: motor sensory deficit Psychiatric exam: PRESENT: appropriate affect, normal mood. ABSENT: homicidal ideation, suicidal ideation Skin exam: PRESENT: dry, intact, warm. ABSENT: cyanosis, rash Results Laboratory Results: 10/29/19 05:21 10/29/19 05:21 10/29/19 10/29/19 05:21 05:21 WBC 37.7 H* RBC 3.66 L Hgb 10.1 L Hct 30.8 L MCV 84 MCH 27.6 MCHC 32.7 RDW 16.0 H Plt Count 468 H Sodium 134.0 L Potassium 3.8 Chloride 106 Carbon Dioxide 24 Anion Gap 4 L BUN 5 L Creatinine 0.41 L Est GFR ( Amer) > 60 Glucose 91 Calcium 11.5 H 10/26/19 10/26/19 10/26/19 15:12 15:12 16:08 Creatine Kinase Cancelled CK-MB (CK-2) Cancelled < 0.22 Troponin I Cancelled < 0.012 10/26/19 16:08 Creatine Kinase < 20 L CK-MB (CK-2) Troponin I Impressions: Abdomen/Pelvis CT 10/26/19 00:00 IMPRESSION: 1. Large circumferential rectal mass consistent with rectal carcinoma. Loss of the normal fat plane between the anterior rectal wall and the uterus is highly suggestive of local invasion. No evidence of perforation or peritoneal abscess. 2. There are multiple enlarged perirectal, left inguinal, left internal and common iliac, and retroperitoneal lymph nodes consistent with metastasis. 3. No acute abnormality in the chest. Chest X-Ray 10/26/19 00:00 IMPRESSION: NO ACUTE FINDINGS. Head CT 10/26/19 15:37 IMPRESSION: NO ACUTE INTRACRANIAL IMAGING FINDINGS. EVIDENCE OF ACUTE STROKE: NO. Chest CT 10/26/19 17:28 IMPRESSION: 1. Large circumferential rectal mass consistent with rectal carcinoma. Loss of the normal fat plane between the anterior rectal wall and the uterus is highly suggestive of local invasion. No evidence of perforation or peritoneal abscess. 2. There are multiple enlarged perirectal, left inguinal, left internal and c ommon iliac, and retroperitoneal lymph nodes consistent with metastasis. 3. No acute abnormality in the chest. Assessment & Plan - Diagnosis (1) Rectal mass Is this a current diagnosis for this admission?: Yes Plan: Await final path, pt seems like she is getting stronger, need to see if she is strong enough for dc. - Time Time Spent with patient: 35 or more minutes
[2019-10-29] MEDS: FERROUS SULFATE 325 MG TABLET PO SCH (08:55)
[2019-10-29] MEDS: DOCUSATE SODIUM 100 MG CAPSULE PO SCH (08:59)
[2019-10-29] MEDS: FAMOTIDINE 20 MG TABLET PO SCH (09:00)
[2019-10-29] MEDS ORDERED: LISINOPRIL 10 MG TABLET PO SCH (10:00)
--- NOTE | 2019-10-29 13:19 | PDOC CONSULTATION ---
Consultation Consult Date: 10/29/19 Provider Consulted: KULWINDER ANDRADE History of Present Illness Admission Date/PCP: 10/26/19 20:15 History of Present Illness: STEFFI KULKARNI is a 64 year old female I was consulted to do a pelvic exam to look for vaginal or cervical lesions. Past Medical History Cardiac Medical History: Denies: Coronary Artery Disease, Hypertension Pulmonary Medical History: Denies: Asthma, Chronic Obstructive Pulmonary Disease (COPD) EENT Medical History: Denies: Cataracts, Ears - Hearing aids Neurological Medical History: Denies: Hemorrhagic CVA, Ischemic CVA, Seizures Endocrine Medical History: Denies: Diabetes Mellitus Type 1, Diabetes Mellitus Type 2, Hyperthyroidism, Hypothyroidism Renal/ Medical History: Denies: Chronic Kidney Disease, Nephrolithiasis Malignancy Medical History: Reports: None GI Medical History: Denies: Cirrhosis, Hepatitis, Peptic Ulcer Disease Musculoskeltal Medical History: Denies: Arthritis, Gout Skin Medical History: Denies: Eczema, Psoriasis Psychiatric Medical History: Denies: Alcohol Dependency, Depression, Substance Abuse, Tobacco Dependency Traumatic Medical History: Reports: None Infectious Medical History: Reports: None Social History Lives with: Spouse/Significant other Smoking Status: Former Smoker - Quit several years ago Electronic Cigarette use?: No Frequency of Alcohol Use: None Hx Recreational Drug Use: No Drugs: None Hx Prescription Drug Abuse: No - Advance Directive Resuscitation Status: Full Code Family History Family History: None. denies: CAD, DM, Hypertension, Malignancy Parental Family History Reviewed: No Children Family History Reviewed: No Sibling(s) Family History Reviewed.: No Medication/Allergy Home Medications: Acetaminophen [Tylenol 325 mg Tablet] 650 mg PO Q4HP PRN tablet 10/29/19 Docusate Sodium [Colace 100 mg Capsule] 100 mg PO BID capsule 10/29/19 Ferrous Sulfate [Feosol 325 mg Tablet] 325 mg PO BIDPCBS #60 tablet 10/29/19 Lisinopril [Prinivil 10 mg Tablet] 10 mg PO DAILY #30 tablet 10/29/19 Allergies/Adverse Reactions: No Known Allergies Allergy (Verified 10/26/19 15:13) Physical Exam - Physical Exam Vital Signs: Temp Pulse Resp BP Pulse Ox 97.7 F 96 16 123/86 H 97 10/29/19 08:04 10/29/19 08:04 10/29/19 08:04 10/29/19 08:04 10/29/19 08:04 Intake & Output 10/28/19 10/29/19 10/30/19 06:59 06:59 06:59 Intake Total 2950 3513 100 Balance 2950 3513 100 Weight 70.4 kg 72.4 kg - Gynecological Exam Labia: normal, other Urethra: normal Introitus: normal Perineum: normal Vagina: other - atrophic without lesions Cervix: other - Polyp removed with ring forceps Cervix: normal Uterus: normal Adhexa: normal Rectal: not examined Rectovaginal: not examined Result Laboratory Results: 10/29/19 05:21 10/29/19 05:21 10/29/19 10/29/19 05:21 05:21 WBC 37.7 H* RBC 3.66 L Hgb 10.1 L Hct 30.8 L MCV 84 MCH 27.6 MCHC 32.7 RDW 16.0 H Plt Count 468 H Sodium 134.0 L Potassium 3.8 Chloride 106 Carbon Dioxide 24 Anion Gap 4 L BUN 5 L Creatinine 0.41 L Est GFR ( Amer) > 60 Glucose 91 Calcium 11.5 H 10/26/19 10/26/19 10/26/19 15:12 15:12 16:08 Creatine Kinase Cancelled CK-MB (CK-2) Cancelled < 0.22 Troponin I Cancelled < 0.012 10/26/19 16:08 Creatine Kinase < 20 L CK-MB (CK-2) Troponin I Impressions: Abdomen/Pelvis CT 10/26/19 00:00 IMPRESSION: 1. Large circumferential rectal mass consistent with rectal carcinoma. Loss of the normal fat plane between the anterior rectal wall and the uterus is highly suggestive of local invasion. No evidence of perforation or peritoneal abscess. 2. There are multiple enlarged perirectal, left inguinal, left internal and common iliac, and retroperitoneal lymph nodes consistent with metastasis. 3. No acute abnormality in the chest. Chest X-Ray 10/26/19 00:00 IMPRESSION: NO ACUTE FINDINGS. Head CT 10/26/19 15:37 IMPRESSION: NO ACUTE INTRACRANIAL IMAGING FINDINGS. EVIDENCE OF ACUTE STROKE: NO. Chest CT 10/26/19 17:28 IMPRESSION: 1. Large circumferential rectal mass consistent with rectal carcinoma. Loss of the normal fat plane between the anterior rectal wall and the uterus is highly suggestive of local invasion. No evidence of perforation or peritoneal abscess. 2. There are multiple enlarged perirectal, left inguinal, left internal and com mon iliac, and retroperitoneal lymph nodes consistent with metastasis. 3. No acute abnormality in the chest. Assessment & Plan - Plan Summary Plan Summary: Pelvic exam done. No vaginal lesions seen. Benign cervical polyp remove with ring forceps and sent to lab.
[2019-10-29 13:54] VITALS: BP 119/79
--- NOTE | 2019-11-01 19:03 | PDOC DISCHARGE SUMMARY ---
Impression - Admit/DC Date/PCP Admission Date/Primary Care Provider: 10/26/19 20:15 Discharge Date: 10/29/19 - Discharge Diagnosis (1) Anemia Is this a current diagnosis for this admission?: Yes (2) Hypercalcemia Is this a current diagnosis for this admission?: Yes (3) Hyponatremia Is this a current diagnosis for this admission?: Yes (4) Leukocytosis Is this a current diagnosis for this admission?: Yes (5) Rectal carcinoma Is this a current diagnosis for this admission?: Yes (6) Pelvic lymphadenopathy Is this a current diagnosis for this admission?: Yes (7) Respiratory alkalosis Is this a current diagnosis for this admission?: Yes - Additional Information Resuscitation Status: Full Code Discharge Diet: Cardiac Discharge Activity: Activity As Tolerated, Balance Activity w/Rest, Slowly Increase Activity Referrals: ELEANOR SANDS MD [ACTIVE STAFF] - 11/05/19 11:00 am Prescriptions: Ferrous Sulfate [Feosol 325 mg Tablet] 325 mg PO BIDPCBS #60 tablet Lisinopril [Prinivil 10 mg Tablet] 10 mg PO DAILY #30 tablet Home Medications: Acetaminophen [Tylenol 325 mg Tablet] 650 mg PO Q4HP PRN tablet 10/29/19 Docusate Sodium [Colace 100 mg Capsule] 100 mg PO BID capsule 10/29/19 Ferrous Sulfate [Feosol 325 mg Tablet] 325 mg PO BIDPCBS #60 tablet 10/29/19 Lisinopril [Prinivil 10 mg Tablet] 10 mg PO DAILY #30 tablet 10/29/19 History of Present Illiness History of Present Illness: Per H&P by Dr. Ritchie: STEFFI KULKARNI is a 64 year old female presented to the emergency room with a 6-month history of malaise. She admits a gradually worsening course of generalized malaise over the last 6 months. Her malaise is been accompanied by fatigue and a decrease in appetite and has been associated with an unintentional weight loss of 30 pounds and progressive generalized weakness. She denies other associated or accompanying signs and symptoms. She denies prior similar episodes. She has not identified any aggravating or ameliorating factors for her malaise. In the emergency room she was found to have a rectal mass with pelvic lymphadenopathy, hyponatremia, hypercalcemia, a respiratory alkalosis and a white blood count of 42,000. She was subsequently admitted to the hospital for further evaluation and treatment. Hospital Course Hospital Course: (1) Anemia Iron deficiency anemia likely due to chronic low-grade blood loss from malignancy. Poor dietary intake could also be contributing. Continue ferrous sulfate supplementation. Hematology/oncology consulted; primary plan per Dr. Sands. Outpatient follow-up. (2) Hypercalcemia Likely related to the malignancy. Overall stable; 11.4-> 11.7-> 11.5-> 11.5 Hematology/oncology consulted. Primary management per Dr. Sands. (3) Hyponatremia Improved; 127.4-> 134 Likely secondary to poor p.o. intake Recommend repeat chemistry by PCP or Dr. Sands within 7 to 10 days. Liberalize dietary sodium. (4) Leukocytosis Blood cultures negative. Urinalysis negative for UTI. No evidence of infectious process on CT chest, abdomen/pelvis. Perhaps related to malignant process. She has been afebrile throughout admission. Patient was empirically placed on antibiotics; received 3 days of IV Zosyn. Heme/ONC consulted. (5) Rectal carcinoma Large circumferential rectal mass consistent with rectal carcinoma and multiple enlarged perirectal inguinal, common iliac, and retroperitoneal lymphadenopathy consistent with metastasis noted on CT imaging. Now status post colonoscopy with biopsies, as well as, inguinal lymph node biopsy. 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 Oncology consulted. Patient to follow-up with Dr. Sands 11/05/2019 to review pathology results. (6) Pelvic lymphadenopathy See above (7) Respiratory alkalosis Resolved (8) Cervical polyp Identified/removed by Dr. Nolan. Cytology revealed benign cervical polyp with foci of squamous metaplasia and parakeratosis. Negative for dysplasia or malignancy. Physical Exam Vital Signs: Temp Pulse Resp BP Pulse Ox 97.4 F 103 H 16 119/79 100 10/29/19 13:50 10/29/19 13:50 10/29/19 13:50 10/29/19 11:12 10/29/19 13:50 General appearance: PRESENT: no acute distress, cooperative, well-developed, well-nourished Head exam: PRESENT: atraumatic, normocephalic Eye exam: PRESENT: conjunctiva pink, EOMI, PERRLA. ABSENT: scleral icterus Mouth exam: PRESENT: moist, tongue midline Respiratory exam: PRESENT: clear to auscultation sakina, symmetrical, unlabored. ABSENT: rales, rhonchi, wheezes Cardiovascular exam: PRESENT: RRR. ABSENT: diastolic murmur, rubs, systolic murmur Vascular exam: PRESENT: normal capillary refill GI/Abdominal exam: PRESENT: normal bowel sounds, soft. ABSENT: distended, guarding, mass, organolmegaly, rebound, tenderness Rectal exam: PRESENT: deferred Extremities exam: PRESENT: full ROM. ABSENT: calf tenderness, clubbing, pedal edema Neurological exam: PRESENT: alert, awake, oriented to person, oriented to place, oriented to time, oriented to situation, CN II-XII grossly intact, other - Mild intermittent confusion/forgetfulness. ABSENT: motor sensory deficit Psychiatric exam: PRESENT: normal mood, unusual affect. ABSENT: homicidal keturah ation, suicidal ideation Skin exam: PRESENT: dry, intact, warm. ABSENT: cyanosis, rash Results Laboratory Results: WBC 37.7 10^3/uL (4.0-10.5) H* 10/29/19 05:21 RBC 3.66 10^6/uL (3.72-5.28) L 10/29/19 05:21 Hgb 10.1 g/dL (12.0-15.5) L 10/29/19 05:21 Hct 30.8 % (36.0-47.0) L 10/29/19 05:21 MCV 84 fl (80-97) 10/29/19 05:21 MCH 27.6 pg (27.0-33.4) 10/29/19 05:21 MCHC 32.7 g/dL (32.0-36.0) 10/29/19 05:21 RDW 16.0 % (11.5-14.0) H 10/29/19 05:21 Plt Count 468 10^3/uL (150-450) H 10/29/19 05:21 Lymph % (Auto) Not Reportable 10/26/19 15:12 Mcintosh % (Auto) Not Reportable 10/26/19 15:12 Eos % (Auto) Not Reportable 10/26/19 15:12 Baso % (Auto) Not Reportable 10/26/19 15:12 Reticulocyte # 0.082 10^6/uL (0.028-0.122) 10/27/19 04:56 Absolute Neuts (auto) Not Reportable 10/26/19 15:12 Absolute Lymphs (auto) Not Reportable 10/26/19 15:12 Absolute Monos (auto) Not Reportable 10/26/19 15:12 Absolute Eos (auto) Not Reportable 10/26/19 15:12 Absolute Basos (auto) Not Reportable 10/26/19 15:12 Total Counted 100 10/26/19 15:12 Seg Neutrophils % Not Reportable 10/26/19 15:12 Seg Neuts % (Manual) 87 % (42-78) H 10/26/19 15:12 Band Neutrophils % 2 % (3-5) L 10/26/19 15:12 Lymphocytes % (Manual) 3 % (13-45) L 10/26/19 15:12 Atypical Lymphs % 1 % (0) 10/26/19 15:12 Monocytes % (Manual) 5 % (3-13) 10/26/19 15:12 Eosinophils % (Manual) 1 % (0-6) 10/26/19 15:12 Basophils % (Manual) 1 % (0-2) 10/26/19 15:12 Abs Neuts (Manual) 37.4 10^3/uL (1.7-8.2) H 10/26/19 15:12 Abs Lymphs (Manual) 1.7 10^3/uL (0.5-4.7) 10/26/19 15:12 Abs Monocytes (Manual) 2.1 10^3/uL (0.1-1.4) H 10/26/19 15:12 Absolute Eos (Manual) 0.4 10^3/uL (0.0-0.6) 10/26/19 15:12 Abs Basophils (Manual) 0.4 10^3/uL (0.0-0.2) H 10/26/19 15:12 Toxic Vacuolation PRESENT 10/26/19 15:12 Large Platelets PRESENT 10/26/19 15:12 Platelet Comment INCREASED 10/26/19 15:12 Polychromasia SLIGHT 10/26/19 15:12 Poikilocytosis SLIGHT 10/26/19 15:12 Anisocytosis SLIGHT 10/26/19 15:12 Ovalocytes SLIGHT 10/26/19 15:12 Retic Count (auto) 2.11 % (0.66-2.85) 10/27/19 04:56 PT 14.7 SEC (11.4-15.4) 10/27/19 04:56 INR 1.14 10/27/19 04:56 APTT 25.7 SEC (23.5-35.8) 10/27/19 04:56 Carbonic Acid 1.03 mmol/L (1.05-1.35) L 10/26/19 17:09 HCO3/H2CO3 Ratio 27:1 10/26/19 17:09 ABG pH 7.54 (7.35-7.45) H 10/26/19 17:09 ABG pCO2 34.3 mmHg (35-45) L 10/26/19 17:09 ABG pO2 80.0 mmHg (80-100) 10/26/19 17:09 ABG HCO3 28.4 mmol/L (20-24) H 10/26/19 17:09 ABG Total CO2 29.5 mmol/L (21-25) H 10/26/19 17:09 ABG O2 Saturation 97.0 % (94-98) 10/26/19 17:09 ABG Base Excess 5.8 mmol/L 10/26/19 17:09 FiO2 ROOM AIR 10/26/19 17:09 Sodium 134.0 mmol/L (137-145) L 10/29/19 05:21 Potassium 3.8 mmol/L (3.6-5.0) 10/29/19 05:21 Chloride 106 mmol/L (98-107) 10/29/19 05:21 Carbon Dioxide 24 mmol/L (22-30) 10/29/19 05:21 Anion Gap 4 (5-19) L 10/29/19 05:21 BUN 5 mg/dL (7-20) L 10/29/19 05:21 Creatinine 0.41 mg/dL (0.52-1.25) L 10/29/19 05:21 Est GFR ( Amer) > 60 (>60) 10/29/19 05:21 Est GFR (Non-Af Amer) Cancelled 10/26/19 15:12 Est GFR (MDRD) Non-Af > 60 (>60) 10/29/19 05:21 Glucose 91 mg/dL (75-110) 10/29/19 05:21 POC Glucose 121 mg/dL (70-110) H 10/26/19 15:39 Lactic Acid 1.9 mmol/L (0.7-2.1) 10/26/19 21:59 Calcium 11.5 mg/dL (8.4-10.2) H 10/29/19 05:21 Phosphorus 2.9 mg/dL (2.5-4.5) 10/28/19 06:25 Magnesium 1.7 mg/dL (1.6-2.3) 10/28/19 06:25 Iron 24.8 ug/dL (37-170) L 10/27/19 04:56 TIBC 170 ug/dL (250-450) L 10/27/19 04:56 % Saturation 15 % 10/27/19 04:56 Ferritin 1150.00 ng/mL (11.1-264.0) H 10/27/19 04:56 Total Bilirubin 1.4 mg/dL (0.2-1.3) H 10/27/19 04:56 Direct Bilirubin 0.0 mg/dL (0.0-0.4) 10/27/19 04:56 Neonat Total Bilirubin Not Reportable 10/27/19 04:56 Neonat Direct Bilirubin Not Reportable 10/27/19 04:56 Neonat Indirect Bili Not Reportable 10/27/19 04:56 AST 38 U/L (14-36) H 10/27/19 04:56 ALT 36 U/L (<35) H 10/27/19 04:56 Alkaline Phosphatase 121 U/L (38-126) 10/27/19 04:56 Creatine Kinase < 20 U/L (30-135) L 10/26/19 16:08 CK-MB (CK-2) < 0.22 ng/mL (<4.55) 10/26/19 16:08 Troponin I < 0.012 ng/mL 10/26/19 16:08 Total Protein 6.0 g/dL (6.3-8.2) L 10/27/19 04:56 Albumin 2.4 g/dL (3.5-5.0) L 10/28/19 06:25 Triglycerides 74 mg/dL (<150) 10/27/19 04:56 Cholesterol 100.37 mg/dL (0-200) 10/27/19 04:56 LDL Cholesterol Direct 58 mg/dL (<100) 10/27/19 04:56 VLDL Cholesterol 15.0 mg/dL (10-31) 10/27/19 04:56 HDL Cholesterol 23 mg/dL (>40) L 10/27/19 04:56 Carcinoembryonic Ag 5.38 ng/mL (<3.0) H 10/27/19 04:56 EGFR Cancelled 10/26/19 15:12 Vitamin B12 886.0 pg/mL (239-931) 10/27/19 04:56 Folate 9.02 ng/mL (>2.76) 10/27/19 04:56 TSH 2.28 uIU/mL (0.47-4.68) 10/26/19 15:12 Urine Color YELLOW 10/26/19 16:40 Urine Appearance CLOUDY 10/26/19 16:40 Urine pH 6.0 (5.0-9.0) 10/26/19 16:40 Ur Specific [place] 1.013 10/26/19 16:40 Urine Protein 30 mg/dL (NEGATIVE) H 10/26/19 16:40 Urine Glucose (UA) NEGATIVE mg/dL (NEGATIVE) 10/26/19 16:40 Urine Ketones NEGATIVE mg/dL (NEGATIVE) 10/26/19 16:40 Urine Blood NEGATIVE (NEGATIVE) 10/26/19 16:40 Urine Nitrite NEGATIVE (NEGATIVE) 10/26/19 16:40 Urine Bilirubin NEGATIVE (NEGATIVE) 10/26/19 16:40 Urine Urobilinogen 2.0 mg/dL (<2.0) H 10/26/19 16:40 Ur Leukocyte Esterase NEGATIVE (NEGATIVE) 10/26/19 16:40 Urine WBC (Auto) 2 /HPF 10/26/19 16:40 Urine RBC (Auto) 2 /HPF 10/26/19 16:40 Urine Bacteria (Auto) TRACE /HPF 10/26/19 16:40 Squamous Epi Cells Auto 2 /HPF 10/26/19 16:40 Amorphous Sediment Auto TRACE /HPF 10/26/19 16:40 Urine Mucus (Auto) RARE /LPF 10/26/19 16:40 Urine Ascorbic Acid 40 (NEGATIVE) H 10/26/19 16:40 SARS-CoV-2 (PCR) NEGATIVE (NEGATIVE) 10/27/19 08:55 Slides for Path Review PATHOLOGIST REVIEWED 10/26/19 15:12 10/26/19 10/26/19 15:12 16:08 CK-MB (CK-2) Cancelled < 0.22 Troponin I Cancelled < 0.012 Impressions: Abdomen/Pelvis CT 10/26/19 00:00 IMPRESSION: 1. Large circumferential rectal mass consistent with rectal carcinoma. Loss of the normal fat plane between the anterior rectal wall and the uterus is highly suggestive of local invasion. No evidence of perforation or peritoneal abscess. 2. There are multiple enlarged perirectal, left inguinal, left internal and common iliac, and retroperitoneal lymph nodes consistent with metastasis. 3. No acute abnormality in the chest. Chest X-Ray 10/26/19 00:00 IMPRESSION: NO ACUTE FINDINGS. Head CT 10/26/19 15:37 IMPRESSION: NO ACUTE INTRACRANIAL IMAGING FINDINGS. EVIDENCE OF ACUTE STROKE: NO. Chest CT 10/26/19 17:28 IMPRESSION: 1. Large circumferential rectal mass consistent with rectal carcinoma. Loss of the normal fat plane between the anterior rectal wall and the uterus is highly suggestive of local invasion. No evidence of perforation or peritoneal abscess. 2. There are multiple enlarged perirectal, left inguinal, left internal and common iliac, and retroperitoneal lymph nodes consistent with metastasis. 3. No acute abnormality in the chest. Plan Plan of Treatment: Patient is discharged home into the care of family members. She is advised to establish with a primary care provider. Keep follow-up appointment with Dr. Sands as scheduled on 11/05/2019. Continue medications as prescribed. Eat a heart healthy diet. Drink plenty of fluids. Return to the emergency department as needed for concerning symptoms. Time Spent: Greater than 30 Minutes Stroke Is this a Stroke Patient?: No Acute Heart Failure - Is this a Heart Failure Patient?: No
== END 2019-10-29 14:11 | disposition home health service (06) | DRG 357 ==
LOC: ER 14:49 → EH 20:15 → 4W 10-27 00:15 → 4N 10-28 16:01
PROVIDERS: ADMIT Emergency Medicine; ATTEND Registered Nurse
PROC: 0YB63ZX Excision of Left Inguinal Region, Percutaneous Approach, Diagnostic (ICD-10-PCS; principal; 2019-10-27 12:00)
PROC: 0DBP8ZX Excision of Rectum, Via Natural or Artificial Opening Endoscopic, Diagnostic (ICD-10-PCS; 2019-10-27 12:00)
DX: C20 Malignant neoplasm of rectum (principal); E87.1 Hypo-osmolality and hyponatremia; E87.3 Alkalosis; E46 Unspecified protein-calorie malnutrition; C77.4 Secondary and unspecified malignant neoplasm of inguinal and lower limb lymph nodes; D63.0 Anemia in neoplastic disease; E83.52 Hypercalcemia; R59.0 Localized enlarged lymph nodes; N84.1 Polyp of cervix uteri; R23.4 Changes in skin texture; R63.4 Abnormal weight loss; K64.4 Residual hemorrhoidal skin tags; K57.30 Diverticulosis of large intestine without perforation or abscess without bleeding; D50.9 Iron deficiency anemia, unspecified; Z87.891 Personal history of nicotine dependence; Z79.899 Other long term (current) drug therapy; Z03.818 Encounter for observation for suspected exposure to other biological agents ruled out
CPT/HCPCS: 01250; 36415; 36600; 45380; 51701; 70450; 71045; 71260; 74177; 80048; 80053; 80061; 80069; 81001; 82378; 82550; 82553; 82607; 82728; 82746; 82803; 82962; 83540; 83550; 83605; 83735; 84100; 84443; 84484; 85025; 85027; 85045; 85610; 85730; 87040; 87635; 88305; 88313; 88341; 88342; 99285; C9803; J1644; J2250; J2543; J2704; J3010; J3490; J7030; J7050; J7120

== ENCOUNTER 2019-11-04 10:24 | Inpatient (IN) | payer BC ==
[2019-11-04] MEDS ORDERED: NORMAL SALINE 1000 ML 1,000 ML IV ONE (10:45)
--- NOTE | 2019-11-04 10:56 | ER Document Report ---
ED General - General Stated Complaint: WEAKNESS Time Seen by Provider: 11/04/19 10:34 Notes: HPI: Patient is an unfortunate 64-year-old female with recent diagnosis and discharge on 31 October for new onset rectal carcinoma, low sodium, high calcium, with pelvic lymph nodes. Patient had lost 30 pounds over 6 months. She presents today for some increased weakness at home. Patient herself denies any pain. No headache, neck pain, chest pain, abdominal pain, weakness or numbness. Patient was satting 98% on room air and was placed on nasal cannula with initial heart rate of 116. She denies any fevers, vomiting, or diarrhea. ROS: See HPI All other review of systems reviewed and otherwise negative Reviewed vital signs and nursing note as charted by RN. PHYSICAL EXAM: CONSTITUTIONAL: Alert and oriented and responds appropriately to questions HEAD: Normocephalic; atraumatic EYES: PERRL; Conjunctivae clear, sclerae non-icteric ENT: Normal nose; no rhinorrhea; moist mucous membranes; pharynx without lesions noted NECK: Supple without meningismus; non-tender; no cervical lymphadenopathy, no masses CARD: Regular rate and rhythm; no murmurs; symmetric distal pulses RESP: Normal chest excursion without splinting or tachypnea; breath sounds clear and equal bilaterally; very minimal scant wheezing. No rales or rhonchi ABD/GI: Normal bowel sounds; non-distended; soft, non-tender BACK: The back appears normal and is non-tender to palpation EXT: Normal ROM in all joints; non-tender to palpation; 1+ pitting edema to the shins SKIN: No acute lesions noted NEURO: CN 2-12 intact; 5/5 bilateral upper and lower extremity strength with sensation intact to light touch PSYCH: The patient's mood and manner are appropriate. Grooming and personal h ygiene are appropriate. - Related Data Allergies/Adverse Reactions: No Known Allergies Allergy (Verified 10/26/19 15:13) Past Medical History - Social History Smoking Status: Unknown if Ever Smoked Family History: None. denies: CAD, DM, Hypertension, Malignancy Patient has homicidal ideation: No - Past Medical History Cardiac Medical History: Denies: Hx Coronary Artery Disease, Hx Hypertension Pulmonary Medical History: Denies: Hx Asthma, Hx COPD Neurological Medical History: Denies: Hx Seizures Endocrine Medical History: Denies: Hx Diabetes Mellitus Type 1, Hx Diabetes Mellitus Type 2, Hx Hyperthyroidism, Hx Hypothyroidism GI Medical History: Denies: Hx Cirrhosis, Hx Hepatitis Musculoskeletal Medical History: Denies Hx Arthritis, Denies Hx Gout Skin Medical History: Denies Hx Eczema, Denies Hx Psoriasis Psychiatric Medical History: Denies: Hx Depression Infectious Medical History: Denies: Hx Hepatitis Physical Exam - Vital signs Vitals: Resp Pulse Ox 17 99 11/04/19 10:44 11/04/19 10:44 Course - Re-evaluation Re-evalutation: 11/04/19 10:55 Given the above history and physical we will repeat the patient's electrolytes, obtain an x-ray of the chest, reassess the possibility of a very elevated calcium, worsening anemia, or other acute life-threatening process. Patient denies any and all chest pain, fevers, shortness of breath above baseline, or focal weakness or numbness. 11/04/19 12:33 Labs and imaging as recorded. Patient's potassium has been replaced. I have provided a dose of calcium lowering medications as well as a liter of fluid for volume expansion. Ionized calcium is pending. Patient has been admitted to the hospitalist service and the oncologist will be consulted. - Vital Signs Vital signs: Temp Pulse Resp BP Pulse Ox 98 F 109 H 24 H 139/93 H 99 11/04/19 10:45 11/04/19 10:52 11/04/19 11:01 11/04/19 11:01 11/04/19 11:01 - Laboratory Result Diagrams: 11/04/19 10:39 11/04/19 10:39 Laboratory results interpreted by me: 11/04/19 11/04/19 11/04/19 10:39 10:39 10:39 WBC 48.2 H* Hgb 11.1 L Hct 34.3 L RDW 16.3 H Plt Count 559 H Seg Neuts % (Manual) 93 H Band Neutrophils % 1 L Lymphocytes % (Manual) 3 L Abs Neuts (Manual) 45.3 H Sodium 130.3 L Potassium 3.0 L* Chloride 95 L Carbon Dioxide 32 H Anion Gap 3 L Creatinine 0.43 L Glucose 129 H Calcium 12.7 H* Alkaline Phosphatase 159 H Creatine Kinase < 20 L NT-Pro-B Natriuret Pep 792 H Albumin 2.5 L Discharge - Discharge Clinical Impression: Weakness, Hypercalcemia, Hypokalemia, Rectal cancer Leukocytosis Qualifiers: Leukocytosis type: unspecified Qualified Code(s): D72.829 - Elevated white blood cell count, unspecified Condition: Fair Disposition: ADMITTED INPATIENT Admitting Provider: Candida (Hospitalist) Unit Admitted: Telemetry
[2019-11-04 11:12] LABS: HEMATOCRIT 34.3 % (36.0-47.0); HEMOGLOBIN 11.1 g/dL (12.0-15.5); MEAN CORPUSCULAR HEMOGLOBIN 27.2 pg (27.0-33.4); MEAN CORPUSCULAR HGB CONC 32.4 g/dL (32.0-36.0); MEAN CORPUSCULAR VOLUME 84 fl (80-97); PLATELET COUNT 559 10^3/uL (150-450); RED BLOOD COUNT 4.09 10^6/uL (3.72-5.28); RED CELL DISTRIBUTION WIDTH 16.3 % (11.5-14.0)
[2019-11-04 11:28] LABS: ALBUMIN 2.5 g/dL (3.5-5.0); ALKALINE PHOSPHATASE 159 U/L (38-126); ASPARTATE AMINO TRANSFERASE 34 U/L (14-36); BILIRUBIN,TOTAL 0.7 mg/dL (0.2-1.3); BLOOD UREA NITROGEN 9 mg/dL (7-20); GLUCOSE 129 mg/dL (75-110); TOTAL PROTEIN 6.4 g/dL (6.3-8.2)
[2019-11-04 11:32] LABS: CREATINE KINASE < 20 U/L (30-135)
--- NOTE | 2019-11-04 11:35 | RADIOLOGY REPORT (SQ) ---
EXAM DESCRIPTION: CHEST 2 VIEWS IMAGES COMPLETED DATE/TIME: 11/04/2019 11:23 am REASON FOR STUDY: 13; cancer; wheezing COMPARISON: 10/26/2019. EXAM PARAMETERS: NUMBER OF VIEWS: two views TECHNIQUE: Digital Frontal and Lateral radiographic views of the chest acquired. RADIATION DOSE: NA LIMITATIONS: none FINDINGS: LUNGS AND PLEURA: No opacities, masses or pneumothorax. No pleural effusion. MEDIASTINUM AND HILAR STRUCTURES: No masses or contour abnormalities. HEART AND VASCULAR STRUCTURES: Heart normal size. No evidence for failure. BONES: No acute findings. HARDWARE: None in the chest. OTHER: No other significant finding. IMPRESSION: NO ACUTE RADIOGRAPHIC FINDING IN THE CHEST. TECHNICAL DOCUMENTATION: JOB ID: [id number] [employer]- All Rights Reserved Reading location - IP/workstation name: [email or web address]
[2019-11-04 11:39] LABS: WHITE BLOOD COUNT 48.2 10^3/uL (4.0-10.5)
[2019-11-04 11:42] LABS: ABSOLUTE LYMPHOCYTES# (MANUAL) 1.4 10^3/uL (0.5-4.7); ABSOLUTE MONOCYTES # (MANUAL) 1.4 10^3/uL (0.1-1.4); BAND NEUTROPHILS % (MANUAL) 1 % (3-5); BASOPHILS % (MANUAL) 0 % (0-2); CREATINE KINASE MB < 0.22 ng/mL (<4.55); EOSINOPHILS % (MANUAL) 0 % (0-6); LYMPHOCYTES % (MANUAL) 3 % (13-45); MONOCYTES % (MANUAL) 3 % (3-13); SEGMENTED NEUTROPHILS % (MAN) 93 % (42-78); TOTAL CELLS COUNTED 100; TROPONIN I < 0.012 ng/mL
[2019-11-04 11:43] LABS: ANISOCYTOSIS 1+; PLATELET COMMENT INCREASED
[2019-11-04 11:44] LABS: POLYCHROMASIA SLIGHT; TOXIC VACUOLATION PRESENT
[2019-11-04 11:45] LABS: PLATELET CLUMPS PRESENT; POIKILOCYTOSIS SLIGHT; TEAR DROP CELLS SLIGHT
[2019-11-04 11:49] LABS: CARBON DIOXIDE 32 mmol/L (22-30); CHLORIDE 95 mmol/L (98-107)
[2019-11-04 11:50] LABS: ANION GAP 3 (5-19)
[2019-11-04 11:51] LABS: CALCIUM 12.7 mg/dL (8.4-10.2)
[2019-11-04] MEDS ORDERED: POTASSI CL 20 MEQ/50 ML RIDER 20 MEQ/50 ML RTUPB IV ONE (11:55)
[2019-11-04] MEDS ORDERED: CALCITONIN,SALMON,SYNTHETIC 400 UNIT/2 ML VIAL IM ONE (12:35)
[2019-11-04] MEDS ORDERED: PAMIDRONATE DISODIUM INJ 30 MG/10 ML VIAL IV ONE (12:35)
[2019-11-04] MEDS ORDERED: PAMIDRONATE DISODIUM IV PRN ×2 (13:24)
[2019-11-04] MEDS ORDERED: NORMAL SALINE IV PRN ×2 (13:24)
[2019-11-04] MEDS ORDERED: ONDANSETRON HCL INJ/PF 4 MG/2 ML SDV IV PRN (13:47)
[2019-11-04] MEDS ORDERED: MAG HYDROX/AL HYDROX/SIMETH SUSP 30 ML UDCUP PO PRN (13:47)
[2019-11-04] MEDS ORDERED: ACETAMINOPHEN 325 MG TABLET PO PRN (13:47)
[2019-11-04] MEDS ORDERED: MAGNESIUM HYDROXIDE SUSP 30 ML UDCUP PO PRN (13:47)
[2019-11-04] MEDS ORDERED: ALBUTEROL SULFATE 0.083% NEB 2.5 MG/3 ML AMPUL NEB PRN (13:47)
--- NOTE | 2019-11-04 14:39 | PDOC H&P ---
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 Today was her first virtual visit with Dr. Sands. Her reported that she has not been out of bed for several days and is profoundly weak. He was directed to get the patient to the emergency department. The patient was discharged on a Sunday. The patient's reports that on she was out of bed. She was walking slowly around the house. Her appetite was fair. Sunday morning she was okay but started to decline by the afternoon. While trying to walk with a walker she felt very weak and sank to the floor. He was unable to pick her up and so he called a friend. While on the floor, however, she was able to eat some soup. He reported no coughing or suggestion of aspiration. On Sunday and Sunday he states that she hardly get out of bed. She has been having liquid stool and has been extremely weak. Home health physical therapy was therapy yesterday but could hardly get her out of bed. On presentation she appears to be very ill. Her serum calcium was 12.7 but considering her low albumin (2.5) it corrects to greater than 13. I believe she was on antibiotics during her most recent admission in the watery stool is certainly concerning for C. difficile. This will be tested. She has had a very elevated white blood cell count all through her last admission as well as on presentation today. Antibiotics had limited effect on her last visit. Blood cultures have been drawn. Urinalysis has been ordered. The emergency department physician administered IV fluids, pamidronate, salmon calcitonin and potassium. The patient will be admitted to [facility] hospitalist service with Dr. Sands consulting. Past Medical History Cardiac Medical History: Denies: Coronary Artery Disease, Hypertension Pulmonary Medical History: Denies: Asthma, Chronic Obstructive Pulmonary Disease (COPD) Neurological Medical History: Denies: Ischemic CVA, Seizures Endocrine Medical History: Denies: Diabetes Mellitus Type 1, Diabetes Mellitus Type 2, Hyperthyroidism, Hypothyroidism Malignancy Medical History: Reports: Colorectal Cancer GI Medical History: Denies: Cirrhosis, Hepatitis Musculoskeltal Medical History: Denies: Arthritis, Gout Skin Medical History: Denies: Eczema, Psoriasis Psychiatric Medical History: Denies: Depression Hematology: Denies: Anemia, Bleeding Tendencies Past Surgical History Past Surgical History: Reports: Other - Recent biopsies rectal mass and inguinal lymph node Social History Information Source: Patient, Relative, COUNTS INCLUDE 234 BEDS AT THE [facility] Records Lives with: Spouse/Significant other Smoking Status: Former Smoker Electronic Cigarette use?: No Frequency of Alcohol Use: None Hx Recreational Drug Use: No Drugs: None Hx Prescription Drug Abuse: No - Advance Directive Resuscitation Status: Do Not Resuscitate Surrogate healthcare decision maker:: Arpit Dickson the patient's . They both have living will. Family History Family History: None. denies: CAD, DM, Hypertension, Malignancy Parental Family History Reviewed: Yes Children Family History Reviewed: NA Sibling(s) Family History Reviewed.: Yes Medication/Allergy Home Medications: Acetaminophen [Tylenol 325 mg Tablet] 650 mg PO Q4HP PRN tablet 10/29/19 Docusate Sodium [Colace 100 mg Capsule] 100 mg PO BID capsule 10/29/19 Ferrous Sulfate [Feosol 325 mg Tablet] 325 mg PO BIDPCBS #60 tablet 10/29/19 Lisinopril [Prinivil 10 mg Tablet] 10 mg PO DAILY #30 tablet 10/29/19 Allergies/Adverse Reactions: No Known Allergies Allergy (Verified 10/26/19 15:13) Review of Systems ROS unobtainable: Other - Very limited review of systems. Most information provided by the patient's . Constitutional: PRESENT: fatigue, weakness - Found. ABSENT: chills, fever(s), headache(s) Eyes: ABSENT: visual disturbances Ears: ABSENT: hearing changes Nose, Mouth, and Throat: ABSENT: mouth pain, sore throat Cardiovascular: ABSENT: chest pain, edema, palpitations Respiratory: ABSENT: dyspnea, hemoptysis, sputum Gastrointestinal: ABSENT: abdominal pain, coffee ground emesis, hematochezia, melena, nausea, vomiting Genitourinary: ABSENT: dysuria, hematuria Musculoskeletal: PRESENT: muscle weakness. ABSENT: deformity, joint swelling Integumentary: ABSENT: erythema, lesions, pruritus, wounds Neurological: PRESENT: other - Extremely limited participation due to profound weakness Psychiatric: PRESENT: depression - Appears quite depressed. ABSENT: anxiety Endocrine: ABSENT: flushing, polydipsia, polyuria Hematologic/Lymphatic: ABSENT: easy bleeding, easy bruising Allergic/Immunologic: ABSENT: seasonal rhinorrhea Physical Exam Vital Signs: Temp Pulse Resp BP Pulse Ox 98 F 109 H 18 127/88 H 97 11/04/19 10:45 11/04/19 10:52 11/04/19 13:41 11/04/19 13:41 11/04/19 13:41 Intake & Output 11/03/19 11/04/19 11/05/19 06:59 06:59 06:59 Intake Total 1050 Balance 1050 General appearance: PRESENT: other - Extremely ill appearing 64-year-old female who looks older than her stated age. Head exam: PRESENT: atraumatic, normocephalic Eye exam: PRESENT: conjunctiva pink, EOMI, PERRLA. ABSENT: periorbital swelling Ear exam: PRESENT: normal external ear exam. ABSENT: bleeding, drainage Mouth exam: PRESENT: dry mucosa - Extremely dry, tongue midline Neck exam: ABSENT: carotid bruit, JVD, lymphadenopathy, thyromegaly, tracheos chance Respiratory exam: PRESENT: clear to auscultation sakina, symmetrical, unlabored. ABSENT: accessory muscle use, rales, rhonchi, tachypnea, wheezes Cardiovascular exam: PRESENT: RRR, +S1, +S2. ABSENT: bradycardia, diastolic murmur, irregular rhythm, systolic murmur, tachycardia GI/Abdominal exam: PRESENT: diminished bowel sounds, distended - Protuberant abdomen, soft. ABSENT: tenderness Rectal exam: PRESENT: deferred Gentrourinary exam: ABSENT: indwelling catheter Extremities exam: PRESENT: pedal edema, +1 edema. ABSENT: calf tenderness Musculoskeletal exam: PRESENT: normal inspection - Relatively normal inspection. ABSENT: ambulatory, deformity, dislocation Neurological exam: PRESENT: alert - Eyes wide open during the encounter., awake, oriented to person, oriented to place, oriented to situation, other - Somewhat difficult to assess. Patient provided limited answers to questions but this could be due to profound weakness and lethargy. Psychiatric exam: PRESENT: flat affect. ABSENT: agitated, anxious Focused psych exam: ABSENT: delusional, paranoid, restlessness Skin exam: PRESENT: dry, pallor, warm. ABSENT: rash, skin tears Results Laboratory Results: 11/04/19 10:39 11/04/19 10:39 11/04/19 11/04/19 11/04/19 10:39 10:39 10:39 WBC 48.2 H* RBC 4.09 Hgb 11.1 L Hct 34.3 L MCV 84 MCH 27.2 MCHC 32.4 RDW 16.3 H Plt Count 559 H Seg Neutrophils % Not Reportable Sodium 130.3 L Potassium 3.0 L* Chloride 95 L Carbon Dioxide 32 H Anion Gap 3 L BUN 9 Creatinine 0.43 L Est GFR ( Amer) > 60 Glucose 129 H Lactic Acid 1.6 Calcium 12.7 H* Total Bilirubin 0.7 AST 34 Alkaline Phosphatase 159 H Total Protein 6.4 Albumin 2.5 L 11/04/19 11/04/19 11/04/19 10:39 10:39 10:39 Creatine Kinase < 20 L CK-MB (CK-2) < 0.22 Troponin I < 0.012 NT-Pro-B Natriuret Pep 792 H Impressions: Chest X-Ray 11/04/19 10:56 IMPRESSION: NO ACUTE RADIOGRAPHIC FINDING IN THE CHEST. Assessment and Plan - Diagnosis (1) Weakness Is this a current diagnosis for this admission?: Yes Plan: Profound weakness. I believe this has led to poor appetite. It is related to the metastatic cancer and portends a poor prognosis. We will have physical therapy assess the patient but I do not know if she will be able to participate. (2) Hypercalcemia Is this a current diagnosis for this admission?: Yes Plan: Possibly a paraneoplastic process. I have ordered parathyroid hormone and parathyroid related hormone. The emergency department physician has ordered pamidronate and Miacalcin. I will recheck electrolytes this evening and daily. (3) Hyponatremia Is this a current diagnosis for this admission?: Yes Plan: This is consistent with her recent admission. It is likely related to the diarrhea and or malignancy with hypercalcemia. The patient will be receiving normal saline with potassium and we will recheck serum sodium levels regularly. (4) Hypokalemia Is this a current diagnosis for this admission?: Yes Plan: Most likely related to the constant diarrhea that the patient has been having. The patient was receiving normal saline with potassium chloride. We will monitor electrolytes closely and supplement accordingly. (5) Leukocytosis Qualifiers: Leukocytosis type: other Qualified Code(s): D72.828 - Other elevated white blood cell count Is this a current diagnosis for this admission?: Yes Plan: Marked elevation in segmented neutrophils. This is consistent with previous admission. The patient was given antibiotics but the white count apartment responded. Blood cultures were drawn but it does not seem that infection is present. This could all be related to the metastatic malignancy. (6) Anemia Qualifiers: Anemia type: iron deficiency Iron deficiency anemia type: unspecified iron deficiency Qualified Code(s): D50.9 - Iron deficiency anemia, unspecified Is this a current diagnosis for this admission?: Yes Plan: Iron deficiency likely secondary to the malignancy. Continue iron supplement. (7) Diarrhea Qualifiers: Diarrhea type: presumed infectious Qualified Code(s): R19.7 - Diarrhea, unspecified Is this a current diagnosis for this admission?: Yes Plan: The patient was on antibiotics during her recent hospitalization. We will check the stool for C. difficile. If positive will initiate oral vancomycin. (8) Rectal cancer Is this a current diagnosis for this admission?: Yes Plan: Newly diagnosed squamous cell rectal cancer with pelvic adenopathy. Dr. Sands will be consulting. Prognosis is very poor. Hospice is a serious conside ration. (9) Pelvic lymphadenopathy Is this a current diagnosis for this admission?: Yes Plan: Lymph node biopsy confirmed squamous cell cancer secondary to rectal mass. (10) Hypoalbuminemia Is this a current diagnosis for this admission?: Yes Plan: Albumin is only 2.5. This is likely from the underlying malignancy. Her appetite is been very poor and this makes it difficult to recover. I will request protein supplements. I believe she uses Ensure or boost at home. (11) Hypertension Qualifiers: Hypertension type: essential hypertension Qualified Code(s): I10 - Essential (primary) hypertension Is this a current diagnosis for this admission?: Yes Plan: We will continue the patient's lisinopril for the time being. There is a parameter to hold if systolic blood pressure is less than 100. - Plan Summary Summary: I believe the patient's presentation is all directly related to the metastatic squamous cell carcinoma. Multiple tests have been ordered. The patient has had blood cultures. I am checking for C. difficile. At this point I do not believe the patient has sepsis but rather very serious complications related to her metastatic cancer. - Time Time Spent with patient: 35 or more minutes Medications reviewed and adjusted accordingly: Yes Anticipated discharge: Other - Unsure. Very possibly with hospice. Within: Other - Unknown - Inpatient Certification Based on my medical assessment, after consideration of the patient's comor bidities, presenting symptoms, or acuity I expect that the services needed warrant INPATIENT care.: Yes I certify that my determination is in accordance with my understanding of Medicare's requirements for reasonable and necessary INPATIENT services [42 CFR 412.3e].: Yes Medical Necessity: Significant Comorbidiites Make Outpatient Treatment Too Risky, Need Close Monitoring Due to Risk of Patient Decompensation, Need For IV Fluids, Risk of Complication if Not Cared For in Hospital Post Hospital Care: D/C Linker Up Documentation
--- NOTE | 2019-11-04 14:44 | ADVANCED CARE ---
- Diagnosis (1) Weakness Diagnosis Current: Yes (2) Hypercalcemia Diagnosis Current: Yes (3) Hyponatremia Diagnosis Current: Yes (4) Hypokalemia Diagnosis Current: Yes (5) Leukocytosis Diagnosis Current: Yes (6) Anemia Diagnosis Current: Yes (7) Diarrhea Diagnosis Current: Yes (8) Rectal cancer Diagnosis Current: Yes (9) Pelvic lymphadenopathy Diagnosis Current: Yes (10) Hypoalbuminemia Diagnosis Current: Yes (11) Hypertension Diagnosis Current: Yes Attendance: The discussion was held at the patient's bedside. The patient's was present. Resuscitation Status: Do Not Resuscitate Discussion: We did discuss the fact that Dr. Sands had brought up the topic of hospice care. He states that both he and his have living huff. We did review her current condition and the gravity of her illness. Because this is a new diagnosis it is very overwhelming. I reviewed the distinction between full code, DO NOT RESUSCITATE and comfort measures. At this time we are proceeding with DO NOT RESUSCITATE. I believe Dr. Sands will have further discussions regarding hospice level care when he sees the patient. Care Planning Goals: To establish the disposition appropriate for her severe disease Document(s) Completed: The couple already have living huff. Time Spent: 18 min
[2019-11-04] MEDS: POTASSI CL 20 MEQ/NS 1L 1,000 ML IV PRN ×2 (15:45→23:04)
[2019-11-04] MEDS: FERROUS SULFATE 325 MG TABLET PO SCH (17:14)
[2019-11-04 20:50] LABS: ALBUMIN 2.2 g/dL (3.5-5.0); BLOOD UREA NITROGEN 8 mg/dL (7-20); CALCIUM 10.9 mg/dL (8.4-10.2); CARBON DIOXIDE 31 mmol/L (22-30); CHLORIDE 98 mmol/L (98-107); GLUCOSE 107 mg/dL (75-110); PHOSPHORUS 2.3 mg/dL (2.5-4.5); POTASSIUM 3.3 mmol/L (3.6-5.0)
[2019-11-04 21:01] LABS: ANION GAP 3 (5-19)
[2019-11-04] MEDS: FAMOTIDINE 20 MG TABLET PO SCH (22:23)
[2019-11-05 05:40] LABS: HEMATOCRIT 31.1 % (36.0-47.0); HEMOGLOBIN 10.2 g/dL (12.0-15.5); MEAN CORPUSCULAR HEMOGLOBIN 27.8 pg (27.0-33.4); MEAN CORPUSCULAR HGB CONC 32.8 g/dL (32.0-36.0); MEAN CORPUSCULAR VOLUME 85 fl (80-97); PLATELET COUNT 495 10^3/uL (150-450); RED BLOOD COUNT 3.67 10^6/uL (3.72-5.28); RED CELL DISTRIBUTION WIDTH 16.6 % (11.5-14.0)
[2019-11-05] MEDS: POTASSI CL 20 MEQ/NS 1L 1,000 ML IV PRN (05:40)
[2019-11-05 05:56] LABS: ALBUMIN 2.1 g/dL (3.5-5.0); BLOOD UREA NITROGEN 8 mg/dL (7-20); CALCIUM 10.2 mg/dL (8.4-10.2); GLUCOSE 107 mg/dL (75-110); PHOSPHORUS 1.7 mg/dL (2.5-4.5); POTASSIUM 3.5 mmol/L (3.6-5.0)
[2019-11-05 06:01] LABS: CARBON DIOXIDE 30 mmol/L (22-30); CHLORIDE 103 mmol/L (98-107)
[2019-11-05 06:12] LABS: ANION GAP 1 (5-19)
[2019-11-05 06:14] LABS: ABSOLUTE LYMPHOCYTES# (MANUAL) 2.8 10^3/uL (0.5-4.7); ABSOLUTE MONOCYTES # (MANUAL) 0.9 10^3/uL (0.1-1.4); BASOPHILS % (MANUAL) 0 % (0-2); EOSINOPHILS % (MANUAL) 0 % (0-6); LYMPHOCYTES % (MANUAL) 6 % (13-45); MONOCYTES % (MANUAL) 2 % (3-13); SEGMENTED NEUTROPHILS % (MAN) 92 % (42-78); TOTAL CELLS COUNTED 100
[2019-11-05 06:16] LABS: TOXIC GRANULATION SLIGHT
[2019-11-05 06:17] LABS: BURR CELLS SLIGHT; OVALOCYTES SLIGHT; PLATELET COMMENT ADEQUATE; POIKILOCYTOSIS SLIGHT
[2019-11-05 06:35] LABS: WHITE BLOOD COUNT 47.4 10^3/uL (4.0-10.5)
[2019-11-05 07:58] LABS: AMORPHOUS SEDIMENT,URINE TRACE /HPF; APPEARANCE,URINE SLIGHTLY-CLOUDY; BILIRUBIN,URINE NEGATIVE (NEGATIVE); COLOR,URINE YELLOW; GLUCOSE, URINE NEGATIVE (NEGATIVE); KETONES,URINE NEGATIVE (NEGATIVE); LEUKOCYTE ESTERASE,URINE NEGATIVE (NEGATIVE); NITRITE,URINE NEGATIVE (NEGATIVE); PROTEIN,URINE NEGATIVE (NEGATIVE); UROBILINOGEN,URINE NEGATIVE mg/dL (<2.0)
--- NOTE | 2019-11-05 08:44 | PDOC CONSULTATION ---
Consultation Consult Date: 11/05/19 Attending physician:: TARAH WILSON Provider Consulted: ELEANOR TOTH Consult reason:: Patient with known recent diagnosis of stage III anal cancer here with confusion, weakness, dehydration History of Present Illness Admission Date/PCP: 11/04/19 12:53 Patient complains of: Confusion, weakness History of Present Illness: STEFFI KULKARNI is a 64 year old female who just was admitted last week with weakness, confusion, dehydration, on imaging was found to have a rectal mass with regional adenopathy as well as retroperitoneal adenopathy, inguinal adenopathy, ultimately she got colonoscopy, had mass at the anal rectal junction along with inguinal adenopathy both of which were biopsied and came back as sq uamous cell carcinoma consistent with either anal primary or cervical primary. We had [facility]AG AD[facility]ER see her during that admission as well, they did a pelvic exam along with cervical evaluation, there was a cervical polyp noted but no malignancy found on that evaluation. So this was felt to be a primary anal cancer with appropriate spread to lymph nodes. She was hydrated, ultimately was eating and drinking, and getting around and was finally discharged home. The first 2 days post discharge her says that she was doing fairly well, but then she began going downhill over the weekend, became weak lethargic, poor p.o. intake, 24 hours prior to admission she was bedbound with total care, and very confused. She was supposed to see us as an outpatient but we recommended that she come to the ED. Upon and presentation, she was found to have some hypercalcemia, and some other metabolic derangements, she was given Aredia already. She has been given some hydration and she seems a little bit more alert this morning. Past Medical History Cardiac Medical History: Denies: Coronary Artery Disease, Hypertension Pulmonary Medical History: Denies: Asthma, Chronic Obstructive Pulmonary Disease (COPD) Neurological Medical History: Denies: Ischemic CVA, Seizures Endocrine Medical History: Denies: Diabetes Mellitus Type 1, Diabetes Mellitus Type 2, Hyperthyroidism, Hypothyroidism Malignancy Medical History: Reports: Other - Stage III anal cancer GI Medical History: Denies: Cirrhosis, Hepatitis Musculoskeltal Medical History: Denies: Arthritis, Gout Skin Medical History: Denies: Eczema, Psoriasis Psychiatric Medical History: Denies: Depression Hematology: Denies: Anemia, Bleeding Tendencies Past Surgical History Past Surgical History: Reports: Other - Recent biopsies rectal mass and inguinal lymph node Social History Lives with: Spouse/Significant other Smoking Status: Former Smoker Electronic Cigarette use?: No Frequency of Alcohol Use: None Hx Recreational Drug Use: No Drugs: None Hx Prescription Drug Abuse: No - Advance Directive Resuscitation Status: Do Not Resuscitate Family History Family History: None. denies: CAD, DM, Hypertension, Malignancy Parental Family History Reviewed: Yes Children Family History Reviewed: Yes Sibling(s) Family History Reviewed.: Yes Medication/Allergy Home Medications: Acetaminophen [Tylenol 325 mg Tablet] 650 mg PO Q4HP PRN tablet 10/29/19 Docusate Sodium [Colace 100 mg Capsule] 100 mg PO BID capsule 10/29/19 Ferrous Sulfate [Feosol 325 mg Tablet] 325 mg PO BIDPCBS #60 tablet 10/29/19 Lisinopril [Prinivil 10 mg Tablet] 10 mg PO DAILY #30 tablet 10/29/19 Allergies/Adverse Reactions: No Known Allergies Allergy (Verified 10/26/19 15:13) Review of Systems Constitutional: ABSENT: chills, fever(s), headache(s), weight gain, weight loss Eyes: ABSENT: visual disturbances Ears: ABSENT: hearing changes Cardiovascular: ABSENT: chest pain, dyspnea on exertion, edema, orthropnea, palpitations Respiratory: ABSENT: cough, hemoptysis Gastrointestinal: ABSENT: abdominal pain, constipation, diarrhea, hematemesis, hematochezia, nausea, vomiting Genitourinary: ABSENT: dysuria, hematuria Musculoskeletal: ABSENT: joint swelling Integumentary: ABSENT: rash, wounds Neurological: ABSENT: abnormal gait, abnormal speech, confusion, dizziness, focal weakness, syncope Psychiatric: ABSENT: anxiety, depression, homidical ideation, suicidal ideation Endocrine: ABSENT: cold intolerance, heat intolerance, polydipsia, polyuria Hematologic/Lymphatic: ABSENT: easy bleeding, easy bruising Physical Exam Vital Signs: Temp Pulse Resp BP Pulse Ox 97.3 F 100 19 148/87 H 95 11/05/19 07:40 11/05/19 07:40 11/05/19 07:40 11/05/19 07:40 11/05/19 03:27 Intake & Output 11/04/19 11/05/19 11/06/19 06:59 06:59 06:59 Intake Total 3190 Balance 3190 Weight 79.1 kg General appearance: PRESENT: no acute distress, well-developed, well-nourished Head exam: PRESENT: atraumatic, normocephalic Eye exam: PRESENT: conjunctiva pink, EOMI, PERRLA. ABSENT: scleral icterus Ear exam: PRESENT: normal external ear exam Mouth exam: PRESENT: moist, tongue midline Neck exam: ABSENT: carotid bruit, JVD, lymphadenopathy, thyromegaly Respiratory exam: PRESENT: clear to auscultation sakina. ABSENT: rales, rhonchi, wheezes Cardiovascular exam: PRESENT: RRR. ABSENT: diastolic murmur, rubs, systolic murmur Pulses: PRESENT: normal dorsalis pedis pul Vascular exam: PRESENT: normal capillary refill GI/Abdominal exam: PRESENT: normal bowel sounds, soft. ABSENT: distended, guarding, mass, organolmegaly, rebound, tenderness Rectal exam: PRESENT: deferred Extremities exam: PRESENT: full ROM. ABSENT: calf tenderness, clubbing, pedal edema Neurological exam: PRESENT: alert, awake, oriented to person, oriented to place, oriented to time, oriented to situation, CN II-XII grossly intact. ABSENT: motor sensory deficit Psychiatric exam: PRESENT: appropriate affect, normal mood. ABSENT: homicidal ideation, suicidal ideation Skin exam: PRESENT: dry, intact, warm. ABSENT: cyanosis, rash Results Laboratory Results: 11/05/19 05:15 11/05/19 05:15 11/04/19 11/04/19 11/04/19 10:39 10:39 10:39 WBC 48.2 H* RBC 4.09 Hgb 11.1 L Hct 34.3 L MCV 84 MCH 27.2 MCHC 32.4 RDW 16.3 H Plt Count 559 H Seg Neutrophils % Not Reportable Sodium 130.3 L Potassium 3.0 L* Chloride 95 L Carbon Dioxide 32 H Anion Gap 3 L BUN 9 Creatinine 0.43 L Est GFR ( Amer) > 60 Glucose 129 H Lactic Acid 1.6 Calcium 12.7 H* Ionized Calcium Krystal Phosphorus Total Bilirubin 0.7 AST 34 Alkaline Phosphatase 159 H Total Protein 6.4 Albumin 2.5 L PTH Intact Urine Color Urine Appearance Urine pH Ur Specific Anselmo Urine Protein Urine Glucose (UA) Urine Ketones Urine Blood Urine Nitrite Ur Leukocyte Esterase Urine WBC (Auto) Urine RBC (Auto) 11/04/19 11/04/19 11/05/19 14:41 20:02 05:15 WBC RBC Hgb Hct MCV MCH MCHC RDW Plt Count Seg Neutrophils % Sodium 132.0 L Potassium 3.3 L Chloride 98 Carbon Dioxide 31 H Anion Gap 3 L BUN 8 Creatinine 0.40 L Est GFR ( Amer) > 60 Glucose 107 Lactic Acid Calcium 10.9 H Ionized Calcium Krystal 1.67 H Phosphorus 2.3 L Total Bilirubin AST Alkaline Phosphatase Total Protein Albumin 2.2 L PTH Intact 33.3 Urine Color Urine Appearance Urine pH Ur Specific Anselmo Urine Protein Urine Glucose (UA) Urine Ketones Urine Blood Urine Nitrite Ur Leukocyte Esterase Urine WBC (Auto) Urine RBC (Auto) 11/05/19 11/05/19 11/05/19 05:15 05:15 06:08 WBC 47.4 H* RBC 3.67 L Hgb 10.2 L Hct 31.1 L MCV 85 MCH 27.8 MCHC 32.8 RDW 16.6 H Plt Count 495 H Seg Neutrophils % Not Reportable Sodium 134.3 L Potassium 3.5 L Chloride 103 Carbon Dioxide 30 Anion Gap 1 L BUN 8 Creatinine 0.38 L Est GFR ( Amer) > 60 Glucose 107 Lactic Acid Calcium 10.2 Ionized Calcium Krystal Phosphorus 1.7 L Total Bilirubin AST Alkaline Phosphatase Total Protein Albumin 2.1 L PTH Intact Urine Color YELLOW Urine Appearance SLIGHTLY-CLOUDY Urine pH 8.0 Ur Specific Anselmo 1.010 Urine Protein NEGATIVE Urine Glucose (UA) NEGATIVE Urine Ketones NEGATIVE Urine Blood NEGATIVE Urine Nitrite NEGATIVE Ur Leukocyte Esterase NEGATIVE Urine WBC (Auto) 3 Urine RBC (Auto) 1 11/04/19 11/04/19 11/04/19 10:39 10:39 10:39 Creatine Kinase < 20 L CK-MB (CK-2) < 0.22 Troponin I < 0.012 NT-Pro-B Natriuret Pep 792 H Impressions: Chest X-Ray 11/04/19 10:56 IMPRESSION: NO ACUTE RADIOGRAPHIC FINDING IN THE CHEST. Assessment & Plan - Diagnosis (1) Anal cancer Is this a current diagnosis for this admission?: Yes Plan: Stage III anal cancer. We would generally take a systemic chemotherapy followed by chemoradiation approach in her setting. However, given her weakness and dehydration, she is not a candidate for that in terms of performance status right now. Hopefully she gets stronger. (2) AMS (altered mental status) Qualifiers: Altered mental status type: unspecified Qualified Code(s): R41.82 - Altered mental status, unspecified Is this a current diagnosis for this admission?: Yes Plan: AMS, currently unspecified, possible delirium from hypercalcemia, but I have ordered MRI of the brain to be sure. - Time Time Spent: Greater than 70 Minutes - Inpatient Certification Based on my medical assessment, after consideration of the patient's comorbidities, presenting symptoms, or acuity I expect that the services needed warrant INPATIENT care.: Yes I certify that my determination is in accordance with my understanding of Medicare's requirements for reasonable and necessary INPATIENT services [42 CFR 412.3e].: Yes Medical Necessity: Risk of Complication if Not Cared For in Hospital
[2019-11-05] MEDS: FERROUS SULFATE 325 MG TABLET PO SCH ×2 (08:58→17:07)
--- NOTE | 2019-11-05 09:16 | EKG REPORT ---
SEVERITY:- ABNORMAL ECG - SINUS TACHYCARDIA BORDERLINE LEFT AXIS DEVIATION LOW VOLTAGE THROUGHOUT CONSIDER ANTERIOR INFARCT : Confirmed by: Low Arana 05-Nov-2019 09:15:39
[2019-11-05] MEDS: FAMOTIDINE 20 MG TABLET PO SCH ×2 (09:20→21:31)
[2019-11-05] MEDS: LISINOPRIL 10 MG TABLET PO SCH (09:20)
[2019-11-05] MEDS: ENOXAPARIN SODIUM INJ 40 MG/0.4 ML DISP.SYRIN SUBCUT SCH (09:22)
[2019-11-05] MEDS: POTASSI CL 40 MEQ/NS 1L 1,000 ML IV PRN ×2 (10:17→21:38)
--- NOTE | 2019-11-05 10:25 | PDOC PROGRESS REPORT ---
Subjective Progress Note for:: 11/05/19 Subjective:: Patient seems more alert today. Still with very flat affect. Very few words when answering questions. Reason For Visit: HYPERCALCEMIA,METASTATIC SQUAMOUS CELL CARCINOMA Physical Exam Vital Signs: Temp Pulse Resp BP Pulse Ox 97.3 F 100 19 148/87 H 95 11/05/19 07:40 11/05/19 07:40 11/05/19 07:40 11/05/19 07:40 11/05/19 03:27 Intake & Output 11/04/19 11/05/19 11/06/19 06:59 06:59 06:59 Intake Total 3190 Balance 3190 Weight 79.1 kg General appearance: PRESENT: no acute distress, cooperative, well-developed Head exam: PRESENT: atraumatic, normocephalic Eye exam: PRESENT: conjunctiva pink. ABSENT: scleral icterus Ear exam: PRESENT: normal external ear exam. ABSENT: bleeding, drainage Mouth exam: PRESENT: moist, tongue midline Teeth exam: PRESENT: poor dentation Neck exam: ABSENT: carotid bruit, JVD, lymphadenopathy Respiratory exam: PRESENT: clear to auscultation sakina, symmetrical, unlabored. ABSENT: accessory muscle use, rales, rhonchi, tachypnea, wheezes Cardiovascular exam: PRESENT: RRR, +S1, +S2, systolic murmur - 1/6. ABSENT: bradycardia, diastolic murmur, irregular rhythm, tachycardia GI/Abdominal exam: PRESENT: diminished bowel sounds, distended, soft. ABSENT: guarding, tenderness Rectal exam: PRESENT: deferred Gentrourinary exam: ABSENT: indwelling catheter Extremities exam: PRESENT: pedal edema Musculoskeletal exam: ABSENT: deformity, dislocation Neurological exam: PRESENT: alert - Still somewhat sluggish, awake, oriented to person, oriented to place, oriented to situation, CN II-XII grossly intact Psychiatric exam: PRESENT: flat affect. ABSENT: agitated, anxious Focused psych exam: ABSENT: delusional, paranoid, restlessness Skin exam: PRESENT: dry, pallor, warm. ABSENT: rash Results Laboratory Results: 11/05/19 05:15 11/05/19 05:15 11/04/19 11/04/19 11/04/19 10:39 10:39 10:39 WBC 48.2 H* RBC 4.09 Hgb 11.1 L Hct 34.3 L MCV 84 MCH 27.2 MCHC 32.4 RDW 16.3 H Plt Count 559 H Seg Neutrophils % Not Reportable Sodium 130.3 L Potassium 3.0 L* Chloride 95 L Carbon Dioxide 32 H Anion Gap 3 L BUN 9 Creatinine 0.43 L Est GFR ( Amer) > 60 Glucose 129 H Lactic Acid 1.6 Calcium 12.7 H* Ionized Calcium Krystal Phosphorus Total Bilirubin 0.7 AST 34 Alkaline Phosphatase 159 H Total Protein 6.4 Albumin 2.5 L PTH Intact Urine Color Urine Appearance Urine pH Ur Specific [place] Urine Protein Urine Glucose (UA) Urine Ketones Urine Blood Urine Nitrite Ur Leukocyte Esterase Urine WBC (Auto) Urine RBC (Auto) 11/04/19 11/04/19 11/05/19 14:41 20:02 05:15 WBC RBC Hgb Hct MCV MCH MCHC RDW Plt Count Seg Neutrophils % Sodium 132.0 L Potassium 3.3 L Chloride 98 Carbon Dioxide 31 H Anion Gap 3 L BUN 8 Creatinine 0.40 L Est GFR ( Amer) > 60 Glucose 107 Lactic Acid Calcium 10.9 H Ionized Calcium Krystal 1.67 H Phosphorus 2.3 L Total Bilirubin AST Alkaline Phosphatase Total Protein Albumin 2.2 L PTH Intact 33.3 Urine Color Urine Appearance Urine pH Ur Specific [place] Urine Protein Urine Glucose (UA) Urine Ketones Urine Blood Urine Nitrite Ur Leukocyte Esterase Urine WBC (Auto) Urine RBC (Auto) 11/05/19 11/05/19 11/05/19 05:15 05:15 06:08 WBC 47.4 H* RBC 3.67 L Hgb 10.2 L Hct 31.1 L MCV 85 MCH 27.8 MCHC 32.8 RDW 16.6 H Plt Count 495 H Seg Neutrophils % Not Reportable Sodium 134.3 L Potassium 3.5 L Chloride 103 Carbon Dioxide 30 Anion Gap 1 L BUN 8 Creatinine 0.38 L Est GFR ( Amer) > 60 Glucose 107 Lactic Acid Calcium 10.2 Ionized Calcium Krystal Phosphorus 1.7 L Total Bilirubin AST Alkaline Phosphatase Total Protein Albumin 2.1 L PTH Intact Urine Color YELLOW Urine Appearance SLIGHTLY-CLOUDY Urine pH 8.0 Ur Specific [place] 1.010 Urine Protein NEGATIVE Urine Glucose (UA) NEGATIVE Urine Ketones NEGATIVE Urine Blood NEGATIVE Urine Nitrite NEGATIVE Ur Leukocyte Esterase NEGATIVE Urine WBC (Auto) 3 Urine RBC (Auto) 1 11/04/19 11/04/19 11/04/19 10:39 10:39 10:39 Creatine Kinase < 20 L CK-MB (CK-2) < 0.22 Troponin I < 0.012 NT-Pro-B Natriuret Pep 792 H Impressions: Chest X-Ray 11/04/19 10:56 IMPRESSION: NO ACUTE RADIOGRAPHIC FINDING IN THE CHEST. Assessment and Plan - Diagnosis (1) Weakness Is this a current diagnosis for this admission?: Yes Plan: Still seems to have profound weakness. Physical therapy to assess. Most likely due to malignancy. (2) Hypercalcemia Is this a current diagnosis for this admission?: Yes Plan: Calcium is down to 10.2 today. Continue to monitor closely. (3) Hyponatremia Is this a current diagnosis for this admission?: Yes Plan: Serum sodium is up to 134. Continue current regimen and monitor electrolytes. (4) Hypokalemia Is this a current diagnosis for this admission?: Yes Plan: Potassium is only up to 3.5. I will change the IV fluid to normal saline with 40 mEq of potassium per liter at 100 mL/h and recheck serum chemistries tomorrow. (5) Leukocytosis Qualifiers: Leukocytosis type: other Qualified Code(s): D72.828 - Other elevated white blood cell count Is this a current diagnosis for this admission?: Yes Plan: White blood cell count is down minimally. It is now 47.4. Looking at the white blood cell count, hemoglobin and platelet count this certainly could be delusional. We will continue to monitor closely. Her white blood cell count was similarly elevated last week during her hospitalization. (6) Anemia Qualifiers: Anemia type: iron deficiency Iron deficiency anemia type: unspecified iron deficiency Qualified Code(s): D50.9 - Iron deficiency anemia, unspecified Is this a current diagnosis for this admission?: Yes Plan: Anemia is likely secondary to malignancy and possibly poor oral intake. Hemoglobin is slightly lower at 10.2. Continue to monitor. Ferrous sulfate has been initiated. (7) Diarrhea Qualifiers: Diarrhea type: presumed infectious Qualified Code(s): R19.7 - Diarrhea, unspecified Is this a current diagnosis for this admission?: Yes Plan: Patient has had no bowel movements since admitted. C. difficile specimen has been ordered. If the patient continues not to have bowel movement it is highly unlikely that she has C. difficile and I will cancel the request for testing. (8) Rectal cancer Is this a current diagnosis for this admission?: Yes Plan: Appreciate Dr. Sands's input. Patient is too decompensated to undergo any type of chemotherapy. MRI has been ordered of the brain due to patient's confused state. If brain metastases are present the direction may likely progress towards hospice. (9) Pelvic lymphadenopathy Is this a current diagnosis for this admission?: Yes Plan: From rectal cancer. Biopsy positive for squamous cell carcinoma. Treatment as above. (10) Hypoalbuminemia Is this a current diagnosis for this admission?: Yes Plan: Secondary to significant presence of malignancy with metastases. The patient did experience some coughing this morning with taking her medications. Speech therapy has been consulted. Once the patient is appropriate for oral intake I will consult the dietitian. (11) Hypertension Qualifiers: Hypertension type: essential hypertension Qualified Code(s): I10 - Essential (primary) hypertension Is this a current diagnosis for this admission?: Yes Plan: Blood pressure is still slightly elevated. Due to patient's decompensated state no additional medications at this time. Will monitor closely. (12) Dysphagia Qualifiers: Dysphagia type: unspecified Qualified Code(s): R13.10 - Dysphagia, unspecified Is this a current diagnosis for this admission?: Yes Plan: Speech therapy has been consulted. Difficulty swallowing could certainly be due to profound weakness. MRI has been ordered of the brain. If metastases are found this certainly could be contributing as well. (13) Acute metabolic encephalopathy Is this a current diagnosis for this admission?: Yes Plan: Possibly due to significant electrolyte derangement. MRI of the head is pending and brain metastases certainly could be the etiology. Also her states that she has had very poor appetite and profound weakness. This could be contributing as well. - Plan Summary Summary: I believe the patient's presentation is all directly related to the metastatic squamous cell carcinoma. Multiple tests have been ordered. The patient has had blood cultures. I am checking for C. difficile. At this point I do not believe the patient has sepsis but rather very serious complications related to her metastatic cancer. - Time Time Spent with patient: 15-24 minutes Medications reviewed and adjusted accordingly: Yes Anticipated discharge: Other - Unsure at this time. Possibly hospice versus home with home health versus alf facility Within: Other - Unable to determine at this time
[2019-11-05] MEDS: PHOSPHORUS #1 250 MG TABLET PO SCH ×2 (10:52→16:00)
[2019-11-05 13:01] LABS: PATH REVIEW PATHOLOGIST REVIEWED
--- NOTE | 2019-11-05 13:30 | RADIOLOGY REPORT (SQ) ---
EXAM DESCRIPTION: MRI HEAD COMBO IMAGES COMPLETED DATE/TIME: 11/05/2019 12:03 pm REASON FOR STUDY: concern for brain mets COMPARISON: CT brain dated 10/26/2019 TECHNIQUE: Multiplanar imaging includes noncontrasted T1, T2, FLAIR, and Diffusion with ADC map seq uences. Contrast enhanced T1 images. Images stored on PACS. CONTRAST TYPE AND DOSE: 15 mL Prohance. RENAL FUNCTION: Not indicated. ACR Type II contrast agent associated with few, if any, unconfounded cases of NSF LIMITATIONS: Patient motion. FINDINGS: ANATOMY: No anomalies. Normal vascular flow voids. Pituitary fossa normal. CSF SPACES: Normal size and contour. No hemorrhage. CEREBRUM: A few high-signal intensity lesions scattered throughout the white matter on FLAIR imaging with distribution suggesting chronic microvascular ischemic change. Sulci and gyri normal in size and contour. No evidence of hemorrhage, mass or extraaxial fluid collection. No enhancing lesions. POSTERIOR FOSSA: No signal alteration. No hemorrhage. No edema, masses or mass effect. Internal audit ory canals, cerebello-pontine angles, mastoids normal. DIFFUSION: Negative for acute or subacute infarction. ORBITS: No masses. Globes normal. PARANASAL SINUSES: No fluid levels. Mucosa normal. OTHER: No other significant finding. IMPRESSION: NO ENHANCING LESIONS. MINIMAL MICROVASCULAR ISCHEMIC CHANGE. OTHERWISE NORMAL STUDY. EVIDENCE OF ACUTE STROKE: NO. TECHNICAL DOCUMENTATION: JOB ID: [id number] 2010 [employer]- All Rights Reserved Reading location - IP/workstation name: [email or web address]
[2019-11-05] MEDS ORDERED: HYDRALAZINE HCL INJ/PF 20 MG/1 ML SDV IV PRN (17:35)
[2019-11-06 06:07] LABS: ALBUMIN 2.3 g/dL (3.5-5.0); ANION GAP 6 (5-19); BLOOD UREA NITROGEN 9 mg/dL (7-20); CALCIUM 10.2 mg/dL (8.4-10.2); CARBON DIOXIDE 25 mmol/L (22-30); CHLORIDE 107 mmol/L (98-107); GLUCOSE 88 mg/dL (75-110); PHOSPHORUS 1.8 mg/dL (2.5-4.5); POTASSIUM 3.7 mmol/L (3.6-5.0)
[2019-11-06 06:13] LABS: HEMATOCRIT 32.2 % (36.0-47.0); HEMOGLOBIN 10.4 g/dL (12.0-15.5); MEAN CORPUSCULAR HEMOGLOBIN 27.4 pg (27.0-33.4); MEAN CORPUSCULAR HGB CONC 32.3 g/dL (32.0-36.0); MEAN CORPUSCULAR VOLUME 85 fl (80-97); PLATELET COUNT 521 10^3/uL (150-450); RED BLOOD COUNT 3.79 10^6/uL (3.72-5.28); RED CELL DISTRIBUTION WIDTH 16.8 % (11.5-14.0)
[2019-11-06 07:15] LABS: ABSOLUTE LYMPHOCYTES# (MANUAL) 1.4 10^3/uL (0.5-4.7); ABSOLUTE MONOCYTES # (MANUAL) 1.4 10^3/uL (0.1-1.4); BASOPHILS % (MANUAL) 0 % (0-2); EOSINOPHILS % (MANUAL) 0 % (0-6); LYMPHOCYTES % (MANUAL) 3 % (13-45); MONOCYTES % (MANUAL) 3 % (3-13); SEGMENTED NEUTROPHILS % (MAN) 83 % (42-78); TOTAL CELLS COUNTED 100
[2019-11-06 07:19] LABS: ANISOCYTOSIS 1+; OVALOCYTES SLIGHT; PLATELET COMMENT INCREASED
[2019-11-06 07:22] LABS: BAND NEUTROPHILS % (MANUAL) 11 % (3-5)
[2019-11-06 07:24] LABS: POIKILOCYTOSIS SLIGHT
[2019-11-06 07:25] LABS: WHITE BLOOD COUNT 48.3 10^3/uL (4.0-10.5)
--- NOTE | 2019-11-06 07:49 | PDOC PROGRESS REPORT ---
Subjective Progress Note for:: 11/06/19 Subjective:: Reviewed MRI brain, was negative, pt still lethargic, encouraged nursing and PT to get her in a chair today Reason For Visit: HYPERCALCEMIA,METASTATIC SQUAMOUS CELL CARCINOMA Physical Exam Vital Signs: Temp Pulse Resp BP Pulse Ox 97.8 F 115 H 16 153/98 H 94 11/06/19 03:13 11/06/19 03:13 11/06/19 03:13 11/06/19 03:13 11/06/19 03:13 Intake & Output 11/05/19 11/06/19 11/07/19 06:59 06:59 06:59 Intake Total 3190 3017 Balance 3190 3017 Weight 79.1 kg 83.1 kg General appearance: PRESENT: no acute distress, well-developed, well-nourished Head exam: PRESENT: atraumatic, normocephalic Eye exam: PRESENT: conjunctiva pink, EOMI, PERRLA. ABSENT: scleral icterus Ear exam: PRESENT: normal external ear exam Mouth exam: PRESENT: moist, tongue midline Neck exam: ABSENT: carotid bruit, JVD, lymphadenopathy, thyromegaly Respiratory exam: PRESENT: clear to auscultation sakina. ABSENT: rales, rhonchi, wheezes Cardiovascular exam: PRESENT: RRR. ABSENT: diastolic murmur, rubs, systolic murmur Pulses: PRESENT: normal dorsalis pedis pul Vascular exam: PRESENT: normal capillary refill GI/Abdominal exam: PRESENT: normal bowel sounds, soft. ABSENT: distended, guard ing, mass, organolmegaly, rebound, tenderness Rectal exam: PRESENT: deferred Extremities exam: PRESENT: full ROM. ABSENT: calf tenderness, clubbing, pedal edema Neurological exam: PRESENT: alert, awake, oriented to person, oriented to place, oriented to time, oriented to situation, CN II-XII grossly intact. ABSENT: motor sensory deficit Psychiatric exam: PRESENT: appropriate affect, normal mood. ABSENT: homicidal ideation, suicidal ideation Skin exam: PRESENT: dry, intact, warm. ABSENT: cyanosis, rash Results Laboratory Results: 11/06/19 05:00 11/06/19 05:00 11/05/19 11/06/19 11/06/19 06:08 05:00 05:00 WBC 48.3 H* RBC 3.79 Hgb 10.4 L Hct 32.2 L MCV 85 MCH 27.4 MCHC 32.3 RDW 16.8 H Plt Count 521 H Seg Neutrophils % Not Reportable Sodium 138.3 Potassium 3.7 Chloride 107 Carbon Dioxide 25 Anion Gap 6 BUN 9 Creatinine 0.37 L Est GFR ( Amer) > 60 Glucose 88 Calcium 10.2 Ionized Calcium Krystal Phosphorus 1.8 L Magnesium 1.7 Albumin 2.3 L Urine Color YELLOW Urine Appearance SLIGHTLY-CLOUDY Urine pH 8.0 Ur Specific [place] 1.010 Urine Protein NEGATIVE Urine Glucose (UA) NEGATIVE Urine Ketones NEGATIVE Urine Blood NEGATIVE Urine Nitrite NEGATIVE Ur Leukocyte Esterase NEGATIVE Urine WBC (Auto) 3 Urine RBC (Auto) 1 11/06/19 05:00 WBC RBC Hgb Hct MCV MCH MCHC RDW Plt Count Seg Neutrophils % Sodium Potassium Chloride Carbon Dioxide Anion Gap BUN Creatinine Est GFR ( Amer) Glucose Calcium Ionized Calcium Krystal 1.45 H Phosphorus Magnesium Albumin Urine Color Urine Appearance Urine pH Ur Specific [place] Urine Protein Urine Glucose (UA) Urine Ketones Urine Blood Urine Nitrite Ur Leukocyte Esterase Urine WBC (Auto) Urine RBC (Auto) 11/04/19 11/04/19 11/04/19 10:39 10:39 10:39 Creatine Kinase < 20 L CK-MB (CK-2) < 0.22 Troponin I < 0.012 NT-Pro-B Natriuret Pep 792 H Impressions: Chest X-Ray 11/04/19 10:56 IMPRESSION: NO ACUTE RADIOGRAPHIC FINDING IN THE CHEST. Head MRI 11/05/19 00:00 IMPRESSION: NO ENHANCING LESIONS. MINIMAL MICROVASCULAR ISCHEMIC CHANGE. OTHERWISE NORMAL STUDY. EVIDENCE OF ACUTE STROKE: NO. Assessment & Plan - Diagnosis (1) Anal cancer Is this a current diagnosis for this admission?: Yes Plan: Stage III, would like to consider Rx for pt but PS still poor (2) AMS (altered mental status) Qualifiers: Altered mental status type: delirium Qualified Code(s): R41.0 - Disorientation, unspecified Is this a current diagnosis for this admission?: Yes Plan: 2nd delirium, multifactorial but not 2nd to brain mets. Cont to follow - Time Time Spent with patient: 15-24 minutes
[2019-11-06] MEDS: ENOXAPARIN SODIUM INJ 40 MG/0.4 ML DISP.SYRIN SUBCUT SCH (09:55)
[2019-11-06] MEDS: PHOSPHORUS #1 250 MG TABLET PO SCH ×3 (09:55→17:10)
[2019-11-06] MEDS: LISINOPRIL 10 MG TABLET PO SCH (09:55)
[2019-11-06] MEDS: FAMOTIDINE 20 MG TABLET PO SCH ×2 (09:56→21:46)
[2019-11-06] MEDS: FERROUS SULFATE 325 MG TABLET PO SCH ×2 (09:56→17:10)
[2019-11-06 12:14] LABS: PATH REVIEW PATHOLOGIST REVIEWED
[2019-11-06] MEDS: POTASSI CL 40 MEQ/NS 1L 1,000 ML IV PRN (14:23)
--- NOTE | 2019-11-06 16:27 | PDOC PROGRESS REPORT ---
Subjective Progress Note for:: 11/06/19 Subjective:: Patient still exhibits a very dry tongue. She still has lethargy. Her abdomen is distended as well. Reason For Visit: HYPERCALCEMIA,METASTATIC SQUAMOUS CELL CARCINOMA Physical Exam Vital Signs: Temp Pulse Resp BP Pulse Ox 97.7 F 130 H 19 144/97 H 94 11/06/19 08:07 11/06/19 14:00 11/06/19 08:07 11/06/19 08:07 11/06/19 08:07 Intake & Output 11/05/19 11/06/19 11/07/19 06:59 06:59 06:59 Intake Total 3190 3017 1000 Balance 3190 3017 1000 Weight 79.1 kg 83.1 kg General appearance: PRESENT: cooperative, mild distress, well-developed Head exam: PRESENT: atraumatic, normocephalic Eye exam: PRESENT: conjunctiva pink. ABSENT: scleral icterus Ear exam: PRESENT: normal external ear exam. ABSENT: bleeding, drainage Mouth exam: PRESENT: dry mucosa. ABSENT: tongue midline Teeth exam: PRESENT: poor dentation Neck exam: ABSENT: carotid bruit, lymphadenopathy, tenderness, thyromegaly, tracheostomy Respiratory exam: PRESENT: decreased breath sounds, rales - Faint at bases. Limited study due to decreased inspiratory phase., symmetrical. ABSENT: rhonchi, tachypnea, wheezes Cardiovascular exam: PRESENT: +S1, +S2, tachycardia GI/Abdominal exam: PRESENT: diminished bowel sounds, distended, soft. ABSENT: tenderness Rectal exam: PRESENT: deferred Neurological exam: PRESENT: awake, oriented to person - Responds to name but nothing else. No meaningful verbal interaction.. ABSENT: alert - Lethargic Psychiatric exam: PRESENT: unusual affect - Very lethargic. ABSENT: agitated, anxious Focused psych exam: ABSENT: delusional, paranoid, restlessness Skin exam: PRESENT: dry, pallor, warm. ABSENT: erythema, rash Results Laboratory Results: 11/06/19 05:00 11/06/19 05:00 11/06/19 11/06/19 11/06/19 05:00 05:00 05:00 WBC 48.3 H* RBC 3.79 Hgb 10.4 L Hct 32.2 L MCV 85 MCH 27.4 MCHC 32.3 RDW 16.8 H Plt Count 521 H Seg Neutrophils % Not Reportable Sodium 138.3 Potassium 3.7 Chloride 107 Carbon Dioxide 25 Anion Gap 6 BUN 9 Creatinine 0.37 L Est GFR ( Amer) > 60 Glucose 88 Calcium 10.2 Ionized Calcium Krystal 1.45 H Phosphorus 1.8 L Magnesium 1.7 Albumin 2.3 L 11/04/19 11/04/19 11/04/19 10:39 10:39 10:39 Creatine Kinase < 20 L CK-MB (CK-2) < 0.22 Troponin I < 0.012 NT-Pro-B Natriuret Pep 792 H Impressions: Chest X-Ray 11/04/19 10:56 IMPRESSION: NO ACUTE RADIOGRAPHIC FINDING IN THE CHEST. Head MRI 11/05/19 00:00 IMPRESSION: NO ENHANCING LESIONS. MINIMAL MICROVASCULAR ISCHEMIC CHANGE. OTHERWISE NORMAL STUDY. EVIDENCE OF ACUTE STROKE: NO. Assessment and Plan - Diagnosis (1) Weakness Is this a current diagnosis for this admission?: Yes Plan: Still profoundly weak. MRI of the brain showed no metastases. (2) Hypercalcemia Is this a current diagnosis for this admission?: Yes Plan: Improved. Continue to administer IV fluids and monitor serum calcium. Taking into account her low albumin the patient is still hypercalcemic (3) Hypokalemia Is this a current diagnosis for this admission?: Yes Plan: Potassium is in the lower end of normal. Continue fluid with potassium. K-Phos has been added. (4) Leukocytosis Qualifiers: Leukocytosis type: other Qualified Code(s): D72.828 - Other elevated white blood cell count Is this a current diagnosis for this admission?: Yes Plan: Remains markedly elevated. I did discuss with Dr. Sands and it is felt that this is related to the malignancy versus any occult infection. We will not administer antibiotics at this time. (5) Anemia Qualifiers: Anemia type: iron deficiency Iron deficiency anemia type: unspecified iron deficiency Qualified Code(s): D50.9 - Iron deficiency anemia, unspecified Is this a current diagnosis for this admission?: Yes Plan: Stable at this time (6) Diarrhea Qualifiers: Diarrhea type: presumed infectious Qualified Code(s): R19.7 - Diarrhea, unspecified Is this a current diagnosis for this admission?: Yes Plan: No further diarrhea. C. difficile test canceled. Review of KUB film shows distended colon and some small bowel loops with fluid. (7) Rectal cancer Is this a current diagnosis for this admission?: Yes Plan: Based on the KUB film the patient's cancer has narrowed the lumen of the colon and is likely causing some obstruction. (8) Pelvic lymphadenopathy Is this a current diagnosis for this admission?: Yes Plan: Secondary to rectal cancer. Patient will need to be much stronger to undergo any therapy. (9) Hypoalbuminemia Is this a current diagnosis for this admission?: Yes Plan: Secondary to malignancy and poor oral intake. A dietitian consult has been ordered. (10) Hypertension Qualifiers: Hypertension type: essential hypertension Qualified Code(s): I10 - Essential (primary) hypertension Is this a current diagnosis for this admission?: Yes Plan: Adequate blood pressure control at this time (11) Dysphagia Qualifiers: Dysphagia type: unspecified Qualified Code(s): R13.10 - Dysphagia, unspecified Is this a current diagnosis for this admission?: Yes Plan: I did consult speech therapy. I discussed the case with them. The patient waxes and wanes and if the patient is too lethargic we can defer consult at this time. (12) Acute metabolic encephalopathy Is this a current diagnosis for this admission?: Yes Plan: Not significantly improved. Partly from the hypercalcemia with likely secondary contribution from malignancy. (13) Hyponatremia Is this a current diagnosis for this admission?: Yes Plan: Resolved with IV fluids (14) Ileus, unspecified Is this a current diagnosis for this admission?: Yes Plan: I did order a KUB film. It shows distended colon and several small bowel loops with fluid. It is likely that the rectal cancer is prohibiting outflow. - Plan Summary Summary: I believe the patient's presentation is all directly related to the metastatic squamous cell carcinoma. Multiple tests have been ordered. The patient has had blood cultures. I am checking for C. difficile. At this point I do not believe the patient has sepsis but rather very serious complications related to her metastatic cancer. - Time Time Spent with patient: 25-34 minutes Medications reviewed and adjusted accordingly: Yes Anticipated discharge: Other - Unsure Within: Other - Unknown at this time
--- NOTE | 2019-11-06 18:19 | RADIOLOGY REPORT (SQ) ---
EXAM DESCRIPTION: KUB/ABDOMEN (SINGLE VIEW) IMAGES COMPLETED DATE/TIME: 11/06/2019 5:15 pm REASON FOR STUDY: abdo distention COMPARISON: None. NUMBER OF VIEWS: One view. TECHNIQUE: Supine radiographic image of the abdomen acquired. LIMITATIONS: None. FINDINGS: BOWEL GAS PATTERN: There is a large amount of bowel gas, predominantly in the large bowel. There are some nondistended air-filled loops of small bowel. CALCIFICATIONS: No suspicious calcifications. SOFT TISSUES: No gross mass or suggestion of organomegaly. HARDWARE: None in the abdomen. BONES: No acute fracture. No worrisome bone lesions. OTHER: No other significant finding. IMPRESSION: Large amount of bowel gas. May indicate an ileus. No small bowel obstruction. TECHNICAL DOCUMENTATION: JOB ID: [id number] [employer]- All Rights Reserved Reading location - IP/workstation name: [email or web address]
[2019-11-07] MEDS: POTASSI CL 40 MEQ/NS 1L 1,000 ML IV PRN ×2 (00:04→06:49)
--- NOTE | 2019-11-07 08:04 | PDOC PROGRESS REPORT ---
Subjective Progress Note for:: 11/07/19 Subjective:: Pt did get up with mod 2 person assist, was able to shuffle feet few steps, sat in chair for short time. Still confused and not really eating. Reason For Visit: HYPERCALCEMIA,METASTATIC SQUAMOUS CELL CARCINOMA Physical Exam Vital Signs: Temp Pulse Resp BP Pulse Ox 97.2 F 107 H 18 138/76 H 96 11/06/19 20:36 11/07/19 02:00 11/06/19 20:36 11/06/19 20:36 11/06/19 20:36 Intake & Output 11/06/19 11/07/19 11/08/19 06:59 06:59 06:59 Intake Total 3017 3240 Balance 3017 3240 Weight 83.1 kg 83.7 kg General appearance: PRESENT: no acute distress, well-developed, well-nourished Head exam: PRESENT: atraumatic, normocephalic Eye exam: PRESENT: conjunctiva pink, EOMI, PERRLA. ABSENT: scleral icterus Ear exam: PRESENT: normal external ear exam Mouth exam: PRESENT: moist, tongue midline Neck exam: ABSENT: carotid bruit, JVD, lymphadenopathy, thyromegaly Respiratory exam: PRESENT: clear to auscultation sakina. ABSENT: rales, rhonchi, wheezes Cardiovascular exam: PRESENT: RRR. ABSENT: diastolic murmur, rubs, systolic murmur Pulses: PRESENT: normal dorsalis pedis pul Vascular exam: PRESENT: normal capillary refill GI/Abdominal exam: PRESENT: normal bowel sounds, soft. ABSENT: distended, guarding, mass, organolmegaly, rebound, tenderness Rectal exam: PRESENT: deferred Extremities exam: PRESENT: full ROM. ABSENT: calf tenderness, clubbing, pedal edema Neurological exam: PRESENT: alert, awake, oriented to person, oriented to place, oriented to time, oriented to situation, CN II-XII grossly intact. ABSENT: motor sensory deficit Psychiatric exam: PRESENT: appropriate affect, normal mood. ABSENT: homicidal ideation, suicidal ideation Skin exam: PRESENT: dry, intact, warm. ABSENT: cyanosis, rash Results Laboratory Results: 11/06/19 05:00 11/06/19 05:00 11/04/19 11/04/19 11/04/19 10:39 10:39 10:39 Creatine Kinase < 20 L CK-MB (CK-2) < 0.22 Troponin I < 0.012 NT-Pro-B Natriuret Pep 792 H Impressions: Chest X-Ray 11/04/19 10:56 IMPRESSION: NO ACUTE RADIOGRAPHIC FINDING IN THE CHEST. Head MRI 11/05/19 00:00 IMPRESSION: NO ENHANCING LESIONS. MINIMAL MICROVASCULAR ISCHEMIC CHANGE. OTHERWISE NORMAL STUDY. EVIDENCE OF ACUTE STROKE: NO. KUB X-Ray 11/06/19 00:00 IMPRESSION: Large amount of bowel gas. May indicate an ileus. No small bowel obstruction. Assessment & Plan - Diagnosis (1) Anal cancer Is this a current diagnosis for this admission?: Yes Plan: PS still poor, not good enough for chemoRx. Con't to have discussion w/ family about next steps of care. (2) AMS (altered mental status) Qualifiers: Altered mental status type: delirium Qualified Code(s): R41.0 - Disorientat ion, unspecified Is this a current diagnosis for this admission?: Yes Plan: Not much improvement, multifactorial, cont current care - Time Time Spent with patient: 15-24 minutes
[2019-11-07 08:24] LABS: HEMATOCRIT 33.3 % (36.0-47.0); HEMOGLOBIN 10.6 g/dL (12.0-15.5); MEAN CORPUSCULAR HEMOGLOBIN 27.3 pg (27.0-33.4); MEAN CORPUSCULAR HGB CONC 31.9 g/dL (32.0-36.0); MEAN CORPUSCULAR VOLUME 85 fl (80-97); PLATELET COUNT 489 10^3/uL (150-450); RED CELL DISTRIBUTION WIDTH 16.9 % (11.5-14.0)
[2019-11-07] MEDS ORDERED: PHARMACY COMMUNICATION ORDER MC NR (08:30)
[2019-11-07 08:37] LABS: ALBUMIN 2.4 g/dL (3.5-5.0); BLOOD UREA NITROGEN 13 mg/dL (7-20); CALCIUM 10.5 mg/dL (8.4-10.2); GLUCOSE 94 mg/dL (75-110); PHOSPHORUS 2.1 mg/dL (2.5-4.5); POTASSIUM 4.5 mmol/L (3.6-5.0)
[2019-11-07 08:38] LABS: WHITE BLOOD COUNT 53.6 10^3/uL (4.0-10.5)
[2019-11-07 08:39] LABS: ABSOLUTE MONOCYTES # (MANUAL) 3.2 10^3/uL (0.1-1.4); BASOPHILS % (MANUAL) 0 % (0-2); EOSINOPHILS % (MANUAL) 0 % (0-6); LYMPHOCYTES % (MANUAL) 0 % (13-45); MONOCYTES % (MANUAL) 6 % (3-13); SEGMENTED NEUTROPHILS % (MAN) 94 % (42-78); TOTAL CELLS COUNTED 100
[2019-11-07 08:41] LABS: ANISOCYTOSIS 1+; PLATELET COMMENT INCREASED; POLYCHROMASIA SLIGHT; TOXIC GRANULATION SLIGHT
[2019-11-07 08:42] LABS: CARBON DIOXIDE 23 mmol/L (22-30); CHLORIDE 113 mmol/L (98-107)
[2019-11-07 08:44] LABS: PREALBUMIN 8.3 mg/dL (17.6-36.0)
[2019-11-07 08:46] LABS: ANION GAP 4 (5-19)
[2019-11-07] MEDS ORDERED: ACETAMINOPHEN 325 MG TABLET NG PRN (09:00)
[2019-11-07] MEDS ORDERED: MAG HYDROX/AL HYDROX/SIMETH SUSP 30 ML UDCUP NG PRN (09:00)
[2019-11-07] MEDS ORDERED: MAGNESIUM HYDROXIDE SUSP 30 ML UDCUP NG PRN (09:00)
--- NOTE | 2019-11-07 09:35 | RADIOLOGY REPORT (SQ) ---
EXAM DESCRIPTION: KUB/ABDOMEN (SINGLE VIEW) IMAGES COMPLETED DATE/TIME: 11/07/2019 9:20 am REASON FOR STUDY: Check Placement of NG Tube COMPARISON: 11/06/2019. NUMBER OF VIEWS: One view. TECHNIQUE: Supine radiographic image of the upper abdomen acquired. LIMITATIONS: None. FINDINGS: BOWEL GAS PATTERN: Limited visualization. Gas within the colon. CALCIFICATIONS: No suspicious calcifications. SOFT TISSUES: No gross mass or suggestion of organomegaly. HARDWARE: Nasogastric tube, tip in stomach. BONES: No acute fracture. No worrisome bone lesions. OTHER: No other significant finding. IMPRESSION: NASOGASTRIC TUBE IN THE STOMACH. TECHNICAL DOCUMENTATION: JOB ID: [id number] 2010 [employer]- All Rights Reserved Reading location - IP/workstation name: [email or web address]
[2019-11-07] MEDS: ENOXAPARIN SODIUM INJ 40 MG/0.4 ML DISP.SYRIN SUBCUT SCH (11:04)
[2019-11-07] MEDS: FERROUS SULFATE LIQUID 300 MG/5 ML UDC NG SCH ×2 (11:04→17:43)
[2019-11-07] MEDS: FAMOTIDINE 20 MG TABLET NG SCH ×2 (11:05→22:05)
[2019-11-07] MEDS: PHOSPHORUS #1 250 MG TABLET NG SCH ×2 (11:05→17:44)
[2019-11-07] MEDS: LISINOPRIL 10 MG TABLET NG SCH (11:09)
--- NOTE | 2019-11-07 12:16 | RADIOLOGY REPORT (SQ) ---
EXAM DESCRIPTION: KUB/ABDOMEN (SINGLE VIEW) IMAGES COMPLETED DATE/TIME: 11/07/2019 12:05 pm REASON FOR STUDY: check for placement COMPARISON: None. NUMBER OF VIEWS: One view. TECHNIQUE: Supine radiographic image of the abdomen acquired. LIMITATIONS: None. FINDINGS: BOWEL GAS PATTERN: There continues to be considerable bowel gas, predominantly in the larg e bowel. There are some nondilated gas-filled loops of small bowel. CALCIFICATIONS: No suspicious calcifications. SOFT TISSUES: No gross mass or suggestion of organomegaly. HARDWARE: The nasogastric tube is in the fundus of the stomach. BONES: No acute fracture. No worrisome bone lesions. OTHER: No other significant finding. IMPRESSION: The tip of the NG tube is in the gastric fundus. TECHNICAL DOCUMENTATION: JOB ID: [id number] 2010 [employer]- All Rights Reserved Reading location - IP/workstation name: [email or web address]
--- NOTE | 2019-11-07 13:38 | PDOC PROGRESS REPORT ---
Subjective Progress Note for:: 11/07/19 Subjective:: KUB x-ray shows dilated loops of bowel with some air-fluid levels. This is certainly causing the abdominal distention. Reason For Visit: HYPERCALCEMIA,METASTATIC SQUAMOUS CELL CARCINOMA Physical Exam Vital Signs: Temp Pulse Resp BP Pulse Ox 97.2 F 102 H 18 138/76 H 96 11/06/19 20:36 11/07/19 07:00 11/06/19 20:36 11/06/19 20:36 11/06/19 20:36 Intake & Output 11/06/19 11/07/19 11/08/19 06:59 06:59 06:59 Intake Total 3017 3240 Balance 3017 3240 Weight 83.1 kg 83.7 kg General appearance: PRESENT: cooperative, mild distress, well-developed Head exam: PRESENT: atraumatic, normocephalic Eye exam: PRESENT: conjunctiva pale. ABSENT: scleral icterus Ear exam: PRESENT: normal external ear exam. ABSENT: bleeding, drainage Mouth exam: PRESENT: dry mucosa, tongue midline Teeth exam: PRESENT: poor dentation Respiratory exam: PRESENT: clear to auscultation sakina - Anteriorly, symmetrical, unlabored. ABSENT: rales, rhonchi, tachypnea, wheezes Cardiovascular exam: PRESENT: +S1, +S2, tachycardia GI/Abdominal exam: PRESENT: distended, hypoactive bowel sounds, soft, tenderness, other - Tympanitic Rectal exam: PRESENT: deferred Extremities exam: PRESENT: pedal edema Neurological exam: PRESENT: alert, awake, oriented to person, oriented to place, oriented to situation Psychiatric exam: PRESENT: flat affect. ABSENT: agitated, anxious Skin exam: PRESENT: pallor Results Laboratory Results: 11/07/19 07:39 11/07/19 07:39 11/07/19 11/07/19 07:39 07:39 WBC 53.6 H* RBC 3.90 Hgb 10.6 L Hct 33.3 L MCV 85 MCH 27.3 MCHC 31.9 L RDW 16.9 H Plt Count 489 H Seg Neutrophils % Not Reportable Sodium 139.9 Potassium 4.5 Chloride 113 H Carbon Dioxide 23 Anion Gap 4 L BUN 13 Creatinine 0.42 L Est GFR ( Amer) > 60 Glucose 94 Calcium 10.5 H Phosphorus 2.1 L Albumin 2.4 L Prealbumin 8.3 L 11/04/19 11/04/19 11/04/19 10:39 10:39 10:39 Creatine Kinase < 20 L CK-MB (CK-2) < 0.22 Troponin I < 0.012 NT-Pro-B Natriuret Pep 792 H Impressions: Chest X-Ray 11/04/19 10:56 IMPRESSION: NO ACUTE RADIOGRAPHIC FINDING IN THE CHEST. Head MRI 11/05/19 00:00 IMPRESSION: NO ENHANCING LESIONS. MINIMAL MICROVASCULAR ISCHEMIC CHANGE. OTHERWISE NORMAL STUDY. EVIDENCE OF ACUTE STROKE: NO. KUB X-Ray 11/07/19 08:28 IMPRESSION: NASOGASTRIC TUBE IN THE STOMACH. Assessment and Plan - Diagnosis (1) Weakness Is this a current diagnosis for this admission?: Yes Plan: Due to malignancy and poor oral intake (2) Hypercalcemia Is this a current diagnosis for this admission?: Yes Plan: Calcium is increasing again. I will administer 2 doses of Miacalcin intramuscularly. In addition she has had marked positive fluid balance and I will administer some furosemide. (3) Hypokalemia Is this a current diagnosis for this admission?: Yes Plan: Seems normal. I will be giving some furosemide so we will need to monitor levels and adjust supplement accordingly (4) Leukocytosis Qualifiers: Leukocytosis type: other Qualified Code(s): D72.828 - Other elevated white blood cell count Is this a current diagnosis for this admission?: Yes Plan: Unfortunately white count continues to climb. No acute intervention at this time. (5) Anemia Qualifiers: Anemia type: iron deficiency Iron deficiency anemia type: unspecified iron deficiency Qualified Code(s): D50.9 - Iron deficiency anemia, unspecified Is this a current diagnosis for this admission?: Yes Plan: Hemoglobin is 10.6. Continue to monitor. (6) Diarrhea Qualifiers: Diarrhea type: presumed infectious Qualified Code(s): R19.7 - Diarrhea, unspecified Is this a current diagnosis for this admission?: Yes Plan: No bowel movement for 2 days. 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 Marked reduction in his likely combination of the cancer and overall declining intake (10) Hypertension Qualifiers: Hypertension type: essential hypertension Qualified Code(s): I10 - Essential (primary) hypertension Is this a current diagnosis for this admission?: Yes Plan: Blood pressure is increasing. I think it is due to the positive fluid balance. I will administer small doses of diuretics. (11) Dysphagia Qualifiers: Dysphagia type: unspecified Qualified Code(s): R13.10 - Dysphagia, unspecified Is this a current diagnosis for this admission?: Yes Plan: Speech therapy was unable to accurately assess due to the patient's severe weakness. If she regains strength they will reassess. (12) Acute metabolic encephalopathy Is this a current diagnosis for this admission?: Yes Plan: At times appears to be slightly more coherent is visiting and her responses seem to be more reasonable (13) Hyponatremia Is this a current diagnosis for this admission?: Yes Plan: Serum sodium is now normal (14) Ileus, unspecified Is this a current diagnosis for this admission?: Yes Plan: An NG tube was placed today. Bilious drainage from the stomach was noted. We will also administering soapsuds enema to stimulate bowel activity - Plan Summary Summary: I believe the patient's presentation is all directly related to the metastatic squamous cell carcinoma. Multiple tests have been ordered. The patient has had blood cultures. I am checking for C. difficile. At this point I do not believe the patient has sepsis but rather very serious complications related to her metastatic cancer. - Time Time Spent with patient: 25-34 minutes Medications reviewed and adjusted accordingly: Yes Anticipated Discharge Disposition: Home with Home Health Anticipated Discharge: Other Other Anticipated Discharge Timeframe: Unknown at this time
[2019-11-07] MEDS: POTASSI CL 20 MEQ/D5LR 1L 20 MEQ/1,000 ML RTUINJ IV PRN (15:35)
[2019-11-07] MEDS: METOPROLOL TARTRATE 25 MG TABLET NG SCH (22:04)
[2019-11-08] MEDS: POTASSI CL 20 MEQ/D5LR 1L 20 MEQ/1,000 ML RTUINJ IV PRN ×2 (02:29→15:20)
[2019-11-08 08:44] LABS: HEMATOCRIT 33.9 % (36.0-47.0); HEMOGLOBIN 10.7 g/dL (12.0-15.5); MEAN CORPUSCULAR HEMOGLOBIN 27.1 pg (27.0-33.4); MEAN CORPUSCULAR HGB CONC 31.5 g/dL (32.0-36.0); MEAN CORPUSCULAR VOLUME 86 fl (80-97); PLATELET COUNT 397 10^3/uL (150-450); RED BLOOD COUNT 3.93 10^6/uL (3.72-5.28); RED CELL DISTRIBUTION WIDTH 17.2 % (11.5-14.0)
[2019-11-08 08:50] LABS: ALBUMIN 2.3 g/dL (3.5-5.0); BLOOD UREA NITROGEN 11 mg/dL (7-20); CALCIUM 10.1 mg/dL (8.4-10.2); GLUCOSE 131 mg/dL (75-110); PHOSPHORUS 1.6 mg/dL (2.5-4.5); POTASSIUM 3.9 mmol/L (3.6-5.0)
[2019-11-08 09:11] LABS: ABSOLUTE LYMPHOCYTES# (MANUAL) 2.3 10^3/uL (0.5-4.7); ABSOLUTE MONOCYTES # (MANUAL) 1.7 10^3/uL (0.1-1.4); BASOPHILS % (MANUAL) 0 % (0-2); CARBON DIOXIDE 24 mmol/L (22-30); CHLORIDE 117 mmol/L (98-107); EOSINOPHILS % (MANUAL) 0 % (0-6); LYMPHOCYTES % (MANUAL) 4 % (13-45); MONOCYTES % (MANUAL) 3 % (3-13); SEGMENTED NEUTROPHILS % (MAN) 93 % (42-78); TOTAL CELLS COUNTED 100
[2019-11-08 09:12] LABS: ANISOCYTOSIS 1+; OVALOCYTES 1+; PLATELET COMMENT ADEQUATE; TOXIC GRANULATION 1+; TOXIC VACUOLATION PRESENT
[2019-11-08 09:14] LABS: WHITE BLOOD COUNT 58.2 10^3/uL (4.0-10.5)
[2019-11-08 09:15] LABS: ANION GAP 1 (5-19)
[2019-11-08] MEDS: FERROUS SULFATE LIQUID 300 MG/5 ML UDC NG SCH ×2 (09:52→18:11)
[2019-11-08] MEDS: LISINOPRIL 10 MG TABLET NG SCH (09:55)
[2019-11-08] MEDS: CALCITONIN,SALMON,SYNTHETIC 400 UNIT/2 ML VIAL IM SCH (09:55)
[2019-11-08] MEDS: ENOXAPARIN SODIUM INJ 40 MG/0.4 ML DISP.SYRIN SUBCUT SCH (09:56)
[2019-11-08] MEDS: FUROSEMIDE INJ/PF 20 MG/2 ML SDV IV SCH (09:57)
[2019-11-08] MEDS: METOPROLOL TARTRATE 25 MG TABLET NG SCH ×2 (09:57→21:23)
[2019-11-08] MEDS: FAMOTIDINE 20 MG TABLET NG SCH ×2 (09:57→21:23)
--- NOTE | 2019-11-08 10:40 | PDOC PROGRESS REPORT ---
Subjective Progress Note for:: 11/08/19 Subjective:: Today had a long discussion with about her current status of disease, there has been some gas movement, bowel sounds, and we discussed that although there is a possibility that she may be improved, we would have expected her mental status to have improved by now. I had a hany hospice discussion with the . Described with hospice is and that if she does not improve by Sunday we should consider home hospice versus inpatient hospice in a facility, we discussed where the facilities are. In total spent about 45 minutes in discussion today. Reason For Visit: HYPERCALCEMIA,METASTATIC SQUAMOUS CELL CARCINOMA Physical Exam Vital Signs: Temp Pulse Resp BP Pulse Ox 97.8 F 87 19 148/85 H 97 11/08/19 07:53 11/08/19 07:53 11/08/19 07:53 11/08/19 07:53 11/08/19 07:53 Intake & Output 11/07/19 11/08/19 11/09/19 06:59 06:59 06:59 Intake Total 3240 1000 Output Total 500 Balance 3240 1000 -500 Weight 83.7 kg 85 kg General appearance: PRESENT: no acute distress, well-developed, well-nourished Head exam: PRESENT: atraumatic, normocephalic Eye exam: PRESENT: conjunctiva pink, EOMI, PERRLA. ABSENT: scleral icterus Ear exam: PRESENT: normal external ear exam Mouth exam: PRESENT: moist, tongue midline Neck exam: ABSENT: carotid bruit, JVD, lymphadenopathy, thyromegaly Respiratory exam: PRESENT: clear to auscultation sakina. ABSENT: rales, rhonchi, wheezes Cardiovascular exam: PRESENT: RRR. ABSENT: diastolic murmur, rubs, systolic murmur Pulses: PRESENT: normal dorsalis pedis pul Vascular exam: PRESENT: normal capillary refill GI/Abdominal exam: PRESENT: normal bowel sounds, soft. ABSENT: distended, guarding, mass, organolmegaly, rebound, tenderness Rectal exam: PRESENT: deferred Extremities exam: PRESENT: full ROM. ABSENT: calf tenderness, clubbing, pedal edema Neurological exam: PRESENT: alert, awake, oriented to person, oriented to place, oriented to time, oriented to situation, CN II-XII grossly intact. ABSENT: motor sensory deficit Psychiatric exam: PRESENT: appropriate affect, normal mood. ABSENT: homicidal ideation, suicidal ideation Skin exam: PRESENT: dry, intact, warm. ABSENT: cyanosis, rash Results Laboratory Results: 11/08/19 08:25 11/08/19 08:25 11/08/19 11/08/19 08:25 08:25 WBC 58.2 H* RBC 3.93 Hgb 10.7 L Hct 33.9 L MCV 86 MCH 27.1 MCHC 31.5 L RDW 17.2 H Plt Count 397 Seg Neutrophils % Not Reportable Sodium 141.9 Potassium 3.9 Chloride 117 H Carbon Dioxide 24 Anion Gap 1 L BUN 11 Creatinine 0.35 L Est GFR ( Amer) > 60 Glucose 131 H Calcium 10.1 Phosphorus 1.6 L Albumin 2.3 L 11/04/19 11/04/19 11/04/19 10:39 10:39 10:39 Creatine Kinase < 20 L CK-MB (CK-2) < 0.22 Troponin I < 0.012 NT-Pro-B Natriuret Pep 792 H Impressions: Chest X-Ray 11/04/19 10:56 IMPRESSION: NO ACUTE RADIOGRAPHIC FINDING IN THE CHEST. Head MRI 11/05/19 00:00 IMPRESSION: NO ENHANCING LESIONS. MINIMAL MICROVASCULAR ISCHEMIC CHANGE. OTHERWISE NORMAL STUDY. EVIDENCE OF ACUTE STROKE: NO. KUB X-Ray 11/07/19 08:28 IMPRESSION: NASOGASTRIC TUBE IN THE STOMACH. Assessment & Plan - Diagnosis (1) Anal cancer Is this a current diagnosis for this admission?: Yes Plan: Unfortunately, it appears that we are not can to be able to get to treatment, her performance status has not improved, as noted above had hany discussion with the , we will see how things go over the weekend and then make decisions by Sunday. (2) AMS (altered mental status) Qualifiers: Altered mental status type: delirium Qualified Code(s): R41.0 - Disorie ntation, unspecified Is this a current diagnosis for this admission?: Yes Plan: Combination of poor p.o. intake with possible ileus and other causes as well, does not seem to be malignancy in the brain although leptomeningeal spread sometimes can happen and is difficult to diagnose. I would most believe that she probably had some sort of underlying dementia ongoing for the last 1 to 2 years even though the did not really notice it, and the gradual decline over the last 3 months because of the cancer prompted a continuous delirium state. - Time Time Spent with patient: 35 or more minutes
[2019-11-08] MEDS: PHOSPHORUS #1 250 MG TABLET NG SCH ×2 (12:03→18:11)
--- NOTE | 2019-11-08 16:04 | RADIOLOGY REPORT (SQ) ---
EXAM DESCRIPTION: KUB/ABDOMEN (SINGLE VIEW) IMAGES COMPLETED DATE/TIME: 11/08/2019 3:56 pm REASON FOR STUDY: replace ng tube COMPARISON: 11/07/2019 FINDINGS: One view AP portable upright image. Includes lower chest and upper abdomen. Nasogastric tube is appropriate, tip in the fundus of the stomach. Gaseous distention of large and small bowel, as before. No evidence of free air. TECHNICAL DOCUMENTATION: JOB ID: [id number] Reading location - IP/workstation name: [email or web address]
--- NOTE | 2019-11-08 18:54 | PDOC PROGRESS REPORT ---
Subjective Progress Note for:: 11/08/19 Subjective:: STEFFI KULKARNI is a 64 year old female who just was admitted last week with weakness, confusion, dehydration, on imaging was found to have a rectal mass with regional adenopathy as well as retroperitoneal adenopathy, inguinal adenopathy, ultimately she got colonoscopy, had mass at the anal rectal junction along with inguinal adenopathy both of which were biopsied and came back as squamous cell carcinoma consistent with either anal primary or cervical primary. We had SOUND TESTER see her during that admission as well, they did a pelvic exam along with cervical evaluation, there was a cervical polyp noted but no malignancy found on that evaluation. So this was felt to be a primary anal cancer with appropriate spread to lymph nodes. She was hydrated, ultimately was eating and drinking, and getting around and was finally discharged home. The first 2 days post discharge her says that she was doing fairly well, but then she began going downhill over the weekend, became weak lethargic, poor p.o. intake, 24 hours prior to admission she was bedbound with total care, and very confused. She was supposed to see us as an outpatient but we recommended that she come to the ED. Upon and presentation, she was found to have some hypercalcemia, and some other metabolic derangements, she was given Aredia already. She has been given some hydration and she seems a little bit more alert this morning. 11/08/2019. No acute events overnight. Has had one small bowel movement, alert and oriented only to self, follows command. Denies any abdominal pain, fever, c hills, nausea, vomiting. Reason For Visit: HYPERCALCEMIA,METASTATIC SQUAMOUS CELL CARCINOMA Physical Exam Vital Signs: Temp Pulse Resp BP Pulse Ox 97.7 F 112 H 18 133/86 H 97 11/08/19 11:58 11/08/19 14:00 11/08/19 11:58 11/08/19 11:58 11/08/19 07:53 Intake & Output 11/07/19 11/08/19 11/09/19 06:59 06:59 06:59 Intake Total 3240 1000 1000 Output Total 500 Balance 3240 1000 500 Weight 83.7 kg 85 kg General appearance: PRESENT: no acute distress, obese, well-developed, well- nourished Respiratory exam: PRESENT: clear to auscultation sakina. ABSENT: rales, rhonchi, wheezes Cardiovascular exam: PRESENT: RRR. ABSENT: diastolic murmur, rubs, systolic murmur GI/Abdominal exam: PRESENT: hypoactive bowel sounds, soft. ABSENT: distended, guarding, mass, organolmegaly, rebound, tenderness Extremities exam: PRESENT: full ROM. ABSENT: calf tenderness, clubbing, pedal edema Neurological exam: PRESENT: alert, awake, oriented to person, CN II-XII grossly intact. ABSENT: motor sensory deficit Results Laboratory Results: 11/08/19 08:25 11/08/19 08:25 11/08/19 11/08/19 08:25 08:25 WBC 58.2 H* RBC 3.93 Hgb 10.7 L Hct 33.9 L MCV 86 MCH 27.1 MCHC 31.5 L RDW 17.2 H Plt Count 397 Seg Neutrophils % Not Reportable Sodium 141.9 Potassium 3.9 Chloride 117 H Carbon Dioxide 24 Anion Gap 1 L BUN 11 Creatinine 0.35 L Est GFR ( Amer) > 60 Glucose 131 H Calcium 10.1 Phosphorus 1.6 L Albumin 2.3 L 11/04/19 11/04/19 11/04/19 10:39 10:39 10:39 Creatine Kinase < 20 L CK-MB (CK-2) < 0.22 Troponin I < 0.012 NT-Pro-B Natriuret Pep 792 H Impressions: Chest X-Ray 11/04/19 10:56 IMPRESSION: NO ACUTE RADIOGRAPHIC FINDING IN THE CHEST. Head MRI 11/05/19 00:00 IMPRESSION: NO ENHANCING LESIONS. MINIMAL MICROVASCULAR ISCHEMIC CHANGE. OTHERWISE NORMAL STUDY. EVIDENCE OF ACUTE STROKE: NO. Assessment and Plan - Diagnosis (1) Acute metabolic encephalopathy Is this a current diagnosis for this admission?: Yes Plan: Unchanged. Likely due to complication of underlying malignancy and ileus. Electrolytes WNL. MRI brain negative for any enhancing lesion or acute stroke. Monitor electrolytes, monitor vitals, fall, aspiration and seizure precautions. (2) Dysphagia Qualifiers: Dysphagia type: unspecified Qualified Code(s): R13.10 - Dysphagia, unspecified Is this a current diagnosis for this admission?: Yes Plan: Patient currently n.p.o. due to ileus. NG tube in place. Will consult speech therapy once patient ileus resolved. MRI brain negative for any stroke. (3) Hypercalcemia Is this a current diagnosis for this admission?: Yes Plan: Resolved. Likely hypercalcemia malignancy. PTH WNL. PTH related peptide pending. Currently on cinacalcet. CMP tomorrow. Continue cinacalcet. Follow-up PTH related peptide. (4) Hypertension Qualifiers: Hypertension type: essential hypertension Qualified Code(s): I10 - Essential (primary) hypertension Is this a current diagnosis for this admission?: Yes Plan: Euvolemic. Normotensive. Continue current meds. Adjust meds as needed. (5) Hypoalbuminemia Is this a current diagnosis for this admission?: Yes Plan: Likely due to underlying malignancy and low p.o. intake. Prealbumin 8.3. Currently n.p.o. due to ileus. Will consult registered dietitian for recommendations. (6) Hypokalemia Is this a current diagnosis for this admission?: Yes Plan: Likely due to GI losses. Replete. BMP tomorrow. (7) Ileus, unspecified Is this a current diagnosis for this admission?: Yes Plan: Abdomen distended and hypoactive otherwise benign. KUB positive for ileus, no small bowel obstruction. Currently n.p.o. Having small bowel movements. Passing flatus. Continue NG tube, monitor electrolytes, KUB tomorrow. (8) Leukocytosis Qualifiers: Leukocytosis type: other Qualified Code(s): D72.828 - Other elevated white blood cell count Is this a current diagnosis for this admission?: Yes Plan: Afebrile. Blood cultures negative. Persistent leukocytosis. Chronic. Unsure of this is malignancy related. Daily CBC. Monitor vitals. Empiric IV antibiotics if any sign of infection. (9) Rectal cancer Is this a current diagnosis for this admission?: Yes Plan: Recently diagnosed. Oncology on board. No intervention planned at this point as patient is too weak for chemotherapy currently DNR. As per oncology he has discussed possible transition to hospice with family. (10) Anemia Qualifiers: Anemia type: iron deficiency Iron deficiency anemia type: unspecified iron deficiency Qualified Code(s): D50.9 - Iron deficiency anemia, unspecified Is this a current diagnosis for this admission?: Yes Plan: H&H stable. No acute sign of bleeding. Monitor H&H. Supportive transfusions. (11) Hyponatremia Is this a current diagnosis for this admission?: Yes Plan: Improving. Continue NS. - Plan Summary Summary: I believe the patient's presentation is all directly related to the metastatic squamous cell carcinoma. Multiple tests have been ordered. The patient has had blood cultures. I am checking for C. difficile. At this point I do not believe the patient has sepsis but rather very serious complications related to her metastatic cancer. - Time Time Spent with patient: 35 or more minutes Medications reviewed and adjusted accordingly: Yes Anticipated Discharge Disposition: Teaching Dietitian Care Facility Anticipated Discharge: within 72 hours
--- NOTE | 2019-11-08 22:42 | RADIOLOGY REPORT (SQ) ---
EXAM DESCRIPTION: XR ABDOMEN 1 VIEW (KUB) COMPLETED DATE/TME: 11/08/2019 19:00 CLINICAL HISTORY: 64 years, Female, illius COMPARISON: Prior study from earlier the same day NUMBER OF VIEWS: 3 TECHNIQUE: 3 frontal radiographs were obtained LIMITATIONS: None. FINDINGS: Enteric drainage tube tip curls within the gastric fundus. There is persistent diffuse dilatation of bowel loops throughout the abdomen, similar to somewhat increased from the previous examination. No suspicious soft tissue calcifications or osseous anomalies. IMPRESSION: Persistent diffuse dilatation of bowel loops throughout the abdomen, somewhat increased from the previous examination. Considerations include adynamic ileus or bowel obstruction. Enteric drainage tube tip curls within the gastric fundus. copyright 2010 [employer]- All Rights Reserved
[2019-11-09] MEDS: POTASSI CL 20 MEQ/D5LR 1L 20 MEQ/1,000 ML RTUINJ IV PRN ×2 (02:26→13:32)
[2019-11-09 07:54] LABS: ALBUMIN 2.3 g/dL (3.5-5.0); ALKALINE PHOSPHATASE 160 U/L (38-126); ANION GAP 5 (5-19); ASPARTATE AMINO TRANSFERASE 24 U/L (14-36); BILIRUBIN,DIRECT 0.1 mg/dL (0.0-0.4); BILIRUBIN,TOTAL 0.7 mg/dL (0.2-1.3); BLOOD UREA NITROGEN 9 mg/dL (7-20); CALCIUM 9.4 mg/dL (8.4-10.2); CARBON DIOXIDE 26 mmol/L (22-30); CHLORIDE 112 mmol/L (98-107); GLUCOSE 109 mg/dL (75-110); PHOSPHORUS 1.9 mg/dL (2.5-4.5); POTASSIUM 3.3 mmol/L (3.6-5.0); TOTAL PROTEIN 5.7 g/dL (6.3-8.2)
[2019-11-09 07:58] LABS: HEMATOCRIT 32.5 % (36.0-47.0); HEMOGLOBIN 10.3 g/dL (12.0-15.5); MEAN CORPUSCULAR HEMOGLOBIN 27.4 pg (27.0-33.4); MEAN CORPUSCULAR HGB CONC 31.8 g/dL (32.0-36.0); MEAN CORPUSCULAR VOLUME 86 fl (80-97); PLATELET COUNT 416 10^3/uL (150-450); RED BLOOD COUNT 3.78 10^6/uL (3.72-5.28); RED CELL DISTRIBUTION WIDTH 17.7 % (11.5-14.0)
[2019-11-09 08:24] LABS: WHITE BLOOD COUNT 58.8 10^3/uL (4.0-10.5)
[2019-11-09 08:26] LABS: ABSOLUTE LYMPHOCYTES# (MANUAL) 2.9 10^3/uL (0.5-4.7); ABSOLUTE MONOCYTES # (MANUAL) 0.6 10^3/uL (0.1-1.4); BAND NEUTROPHILS % (MANUAL) 7 % (3-5); BASOPHILS % (MANUAL) 0 % (0-2); EOSINOPHILS % (MANUAL) 0 % (0-6); LYMPHOCYTES % (MANUAL) 5 % (13-45); MONOCYTES % (MANUAL) 1 % (3-13); SEGMENTED NEUTROPHILS % (MAN) 87 % (42-78); TOTAL CELLS COUNTED 100
[2019-11-09 08:27] LABS: ANISOCYTOSIS 1+; OVALOCYTES 1+; PLATELET COMMENT ADEQUATE; TOXIC GRANULATION 1+
[2019-11-09] MEDS: FAMOTIDINE 20 MG TABLET NG SCH ×2 (10:06→22:03)
[2019-11-09] MEDS: FERROUS SULFATE LIQUID 300 MG/5 ML UDC NG SCH ×2 (10:06→18:04)
[2019-11-09] MEDS: METOPROLOL TARTRATE 25 MG TABLET NG SCH ×2 (10:06→22:03)
[2019-11-09] MEDS: PHOSPHORUS #1 250 MG TABLET NG SCH ×3 (10:07→18:04)
[2019-11-09] MEDS: LISINOPRIL 10 MG TABLET NG SCH (10:07)
[2019-11-09] MEDS: ENOXAPARIN SODIUM INJ 40 MG/0.4 ML DISP.SYRIN SUBCUT SCH (10:07)
[2019-11-09] MEDS: FUROSEMIDE INJ/PF 20 MG/2 ML SDV IV SCH (10:07)
[2019-11-09] MEDS: CALCITONIN,SALMON,SYNTHETIC 400 UNIT/2 ML VIAL IM SCH (11:04)
--- NOTE | 2019-11-09 15:11 | PDOC PROGRESS REPORT ---
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 We had FLEET ADMINISTRATOR see her during that admission as well, they did a pelvic exam along with cervical evaluation, there was a cervical polyp noted but no malignancy found on that evaluation. So this was felt to be a primary anal cancer with appropriate spread to lymph nodes. She was hydrated, ultimately was eating and drinking, and getting around and was finally discharged home. The first 2 days post discharge her says that she was doing fairly well, but then she began going downhill over the weekend, became weak lethargic, poor p.o. intake, 24 hours prior to admission she was bedbound with total care, and very confused. She was supposed to see us as an outpatient but we recommended that she come to the ED. Upon and presentation, she was found to have some hypercalcemia, and some other metabolic derangements, she was given Aredia already. She has been given some hydration and she seems a little bit more alert this morning. 11/08/2019. No acute events overnight. Has had one small bowel movement, alert and oriented only to self, follows command. Denies any abdominal pain, fever, chills, nausea, vomiting. 11/09/2019. No acute events overnight. Patient is still very confused however alert and cooperative, patient has had one small bowel movement, is still having NG tube in place. Patient denies any chest pain, shortness of breath, abdominal pain, fever or chills. Reason For Visit: HYPERCALCEMIA,METASTATIC SQUAMOUS CELL CARCINOMA Physical Exam Vital Signs: Temp Pulse Resp BP Pulse Ox 97.7 F 112 H 18 113/81 96 11/09/19 11:13 11/09/19 11:13 11/09/19 11:13 11/09/19 11:13 11/09/19 11:13 Intake & Output 11/08/19 11/09/19 11/10/19 06:59 06:59 06:59 Intake Total 1000 2000 1000 Output Total 1500 Balance 8415 891 8071 Weight 85 kg 70.4 kg General appearance: PRESENT: no acute distress, well-developed, well-nourished Head exam: PRESENT: atraumatic, normocephalic Respiratory exam: PRESENT: clear to auscultation sakina. ABSENT: rales, rhonchi, wheezes Cardiovascular exam: PRESENT: RRR. ABSENT: diastolic murmur, rubs, systolic murmur GI/Abdominal exam: PRESENT: distended, hypoactive bowel sounds, soft. ABSENT: guarding, mass, organolmegaly, rebound, tenderness Neurological exam: PRESENT: alert, awake, oriented to person, CN II-XII grossly intact. ABSENT: motor sensory deficit Skin exam: PRESENT: dry, intact, warm. ABSENT: cyanosis, rash Results Laboratory Results: 11/09/19 06:03 11/09/19 06:03 11/09/19 11/09/19 06:03 06:03 WBC 58.8 H* RBC 3.78 Hgb 10.3 L Hct 32.5 L MCV 86 MCH 27.4 MCHC 31.8 L RDW 17.7 H Plt Count 416 Seg Neutrophils % Not Reportable Sodium 142.8 Potassium 3.3 L Chloride 112 H Carbon Dioxide 26 Anion Gap 5 BUN 9 Creatinine 0.36 L Est GFR ( Amer) > 60 Glucose 109 Calcium 9.4 Phosphorus 1.9 L Magnesium 1.7 Total Bilirubin 0.7 AST 24 Alkaline Phosphatase 160 H Total Protein 5.7 L Albumin 2.3 L 11/04/19 13:28 Blood Blood Culture - Final NO GROWTH IN 5 DAYS 11/04/19 10:39 Blood Blood Culture - Final NO GROWTH IN 5 DAYS 11/04/19 11/04/19 11/04/19 10:39 10:39 10:39 Creatine Kinase < 20 L CK-MB (CK-2) < 0.22 Troponin I < 0.012 NT-Pro-B Natriuret Pep 792 H Impressions: Chest X-Ray 11/04/19 10:56 IMPRESSION: NO ACUTE RADIOGRAPHIC FINDING IN THE CHEST. Head MRI 11/05/19 00:00 IMPRESSION: NO ENHANCING LESIONS. MINIMAL MICROVASCULAR ISCHEMIC CHANGE. OTHERWISE NORMAL STUDY. EVIDENCE OF ACUTE STROKE: NO. KUB X-Ray 11/08/19 19:00 IMPRESSION: Persistent diffuse dilatation of bowel loops throughout the abdomen, somewhat increased from the previous examination. Considerations include adynamic ileus or bowel obstruction. Enteric drainage tube tip curls within the gastric fundus. copyright 2010 [employer]- All Rights Reserved Assessment and Plan - Diagnosis (1) Acute metabolic encephalopathy Is this a current diagnosis for this admission?: Yes Plan: Unchanged. Likely due to complication of underlying malignancy and ileus. Electrolytes WNL. MRI brain negative for any enhancing lesion or acute stroke. Monitor electrolytes, monitor vitals, fall, aspiration and seizure precautions. (2) Dysphagia Qualifiers: Dysphagia type: unspecified Qualified Code(s): R13.10 - Dysphagia, unspecified Is this a current diagnosis for this admission?: Yes Plan: Patient currently n.p.o. due to ileus. NG tube in place. Will consult speech therapy once patient ileus resolved. MRI brain negative for any stroke. (3) Hypercalcemia Is this a current diagnosis for this admission?: Yes Plan: Resolved. Likely hypercalcemia malignancy. PTH WNL. PTH related peptide pending. Currently on cinacalcet. CMP tomorrow. Continue cinacalcet. Follow-up PTH related peptide. (4) Hypertension Qualifiers: Hypertension type: essential hypertension Qualified Code(s): I10 - Essential (primary) hypertension Is this a current diagnosis for this admission?: Yes Plan: Euvolemic. Normotensive. Continue current meds. Adjust meds as needed. (5) Hypoalbuminemia Is this a current diagnosis for this admission?: Yes Plan: Likely due to underlying malignancy and low p.o. intake. Prealbumin 8.3. Currently n.p.o. due to ileus. Will consult registered dietitian for recommendations. (6) Hypokalemia Is this a current diagnosis for this admission?: Yes Plan: Likely due to GI losses. Replete. BMP tomorrow. (7) Ileus, unspecified Is this a current diagnosis for this admission?: Yes Plan: Abdomen distended and hypoactive otherwise benign. KUB positive for ileus, no small bowel obstruction. Currently n.p.o. Having small bowel movements. Passing flatus. Continue NG tube, monitor electrolytes, KUB tomorrow. (8) Leukocytosis Qualifiers: Leukocytosis type: other Qualified Code(s): D72.828 - Other elevated white blood cell count Is this a current diagnosis for this admission?: Yes Plan: Afebrile. Blood cultures negative. Persistent leukocytosis. Chronic. Unsure of this is malignancy related. Daily CBC. Monitor vitals. Empiric IV antibiotics if any sign of infection. (9) Rectal cancer Is this a current diagnosis for this admission?: Yes Plan: Recently diagnosed. Oncology on board. No intervention planned at this point as patient is too weak for chemotherapy currently DNR. As per oncology he has discussed possible transition to hospice with family. (10) Anemia Qualifiers: Anemia type: iron deficiency Iron deficiency anemia type: unspecified iron deficiency Qualified Code(s): D50.9 - Iron deficiency anemia, unspecified Is this a current diagnosis for this admission?: Yes Plan: H&H stable. No acute sign of bleeding. Monitor H&H. Supportive transfusions. (11) Hyponatremia Is this a current diagnosis for this admission?: Yes Plan: Improving. Continue NS. - Plan Summary Summary: I believe the patient's presentation is all directly related to the metastatic squamous cell carcinoma. Multiple tests have been ordered. The patient has had blood cultures. I am checking for C. difficile. At this point I do not believe the patient has sepsis but rather very serious complications related to her metastatic cancer. - Time Time Spent with patient: 15-24 minutes Medications reviewed and adjusted accordingly: Yes Anticipated Discharge Disposition: [facility] Anticipated Discharge: Other
[2019-11-10] MEDS: POTASSI CL 20 MEQ/D5LR 1L 20 MEQ/1,000 ML RTUINJ IV PRN ×2 (00:04→22:34)
[2019-11-10 01:02] LABS: HEMATOCRIT 30.1 % (36.0-47.0); HEMOGLOBIN 9.8 g/dL (12.0-15.5); MEAN CORPUSCULAR HEMOGLOBIN 27.8 pg (27.0-33.4); MEAN CORPUSCULAR HGB CONC 32.5 g/dL (32.0-36.0); MEAN CORPUSCULAR VOLUME 86 fl (80-97); PLATELET COUNT 353 10^3/uL (150-450); RED BLOOD COUNT 3.51 10^6/uL (3.72-5.28); RED CELL DISTRIBUTION WIDTH 17.5 % (11.5-14.0)
[2019-11-10 01:04] LABS: WHITE BLOOD COUNT 56.9 10^3/uL (4.0-10.5)
--- NOTE | 2019-11-10 07:48 | PDOC PROGRESS REPORT ---
Subjective Progress Note for:: 11/10/19 Subjective:: Spoke extensively w/ this am, suggested that hospice would be best course going forward. is unsure of how he wants to proceed. Would like family conference, he will come to office today to discuss further. Spent 45 min in discussion today. Reason For Visit: HYPERCALCEMIA,METASTATIC SQUAMOUS CELL CARCINOMA Physical Exam Vital Signs: Temp Pulse Resp BP Pulse Ox 98.4 F 111 H 16 134/71 H 99 11/10/19 03:55 11/10/19 03:55 11/10/19 03:55 11/10/19 03:55 11/10/19 03:55 Intake & Output 11/09/19 11/10/19 11/11/19 06:59 06:59 06:59 Intake Total 2000 2000 Output Total 1500 Balance 500 2000 Weight 70.4 kg 69.9 kg General appearance: PRESENT: no acute distress, well-developed, well-nourished Head exam: PRESENT: atraumatic, normocephalic Eye exam: PRESENT: conjunctiva pink, EOMI, PERRLA. ABSENT: scleral icterus Ear exam: PRESENT: normal external ear exam Mouth exam: PRESENT: moist, tongue midline Neck exam: ABSENT: carotid bruit, JVD, lymphadenopathy, thyromegaly Respiratory exam: PRESENT: clear to auscultation sakina. ABSENT: rales, rhonchi, wheezes Cardiovascular exam: PRESENT: RRR. ABSENT: diastolic murmur, rubs, systolic murmur Pulses: PRESENT: normal dorsalis pedis pul Vascular exam: PRESENT: normal capillary refill GI/Abdominal exam: PRESENT: normal bowel sounds, soft. ABSENT: distended, guarding, mass, organolmegaly, rebound, tenderness Rectal exam: PRESENT: deferred Extremities exam: PRESENT: full ROM. ABSENT: calf tenderness, clubbing, pedal edema Neurological exam: PRESENT: alert, awake, oriented to person, oriented to place, oriented to time, oriented to situation, CN II-XII grossly intact. ABSENT: motor sensory deficit Psychiatric exam: PRESENT: appropriate affect, normal mood. ABSENT: homicidal ideation, suicidal ideation Skin exam: PRESENT: dry, intact, warm. ABSENT: cyanosis, rash Results Laboratory Results: 11/10/19 06:44 07/26/20 07/26/20 07/27/20 06:03 06:03 00:46 WBC 58.8 H* 56.9 H* RBC 3.78 3.51 L Hgb 10.3 L 9.8 L Hct 32.5 L 30.1 L MCV 86 86 MCH 27.4 27.8 MCHC 31.8 L 32.5 RDW 17.7 H 17.5 H Plt Count 416 353 Seg Neutrophils % Not Reportable Sodium 142.8 Potassium 3.3 L Chloride 112 H Carbon Dioxide 26 Anion Gap 5 BUN 9 Creatinine 0.36 L Est GFR ( Amer) > 60 Glucose 109 Calcium 9.4 Phosphorus 1.9 L Magnesium 1.7 Total Bilirubin 0.7 AST 24 Alkaline Phosphatase 160 H Total Protein 5.7 L Albumin 2.3 L 11/10/19 11/10/19 03:47 06:44 WBC Cancelled Cancelled RBC Cancelled Cancelled Hgb Cancelled Cancelled Hct Cancelled Cancelled MCV Cancelled Cancelled MCH Cancelled Cancelled MCHC Cancelled Cancelled RDW Cancelled Cancelled Plt Count Cancelled Cancelled Seg Neutrophils % Sodium Potassium Chloride Carbon Dioxide Anion Gap BUN Creatinine Est GFR ( Amer) Glucose Calcium Phosphorus Magnesium Total Bilirubin AST Alkaline Phosphatase Total Protein Albumin 11/04/19 13:28 Blood Blood Culture - Final NO GROWTH IN 5 DAYS 11/04/19 10:39 Blood Blood Culture - Final NO GROWTH IN 5 DAYS 11/04/19 11/04/19 11/04/19 10:39 10:39 10:39 Creatine Kinase < 20 L CK-MB (CK-2) < 0.22 Troponin I < 0.012 NT-Pro-B Natriuret Pep 792 H Impressions: Chest X-Ray 11/04/19 10:56 IMPRESSION: NO ACUTE RADIOGRAPHIC FINDING IN THE CHEST. Head MRI 11/05/19 00:00 IMPRESSION: NO ENHANCING LESIONS. MINIMAL MICROVASCULAR ISCHEMIC CHANGE. OTHERWISE NORMAL STUDY. EVIDENCE OF ACUTE STROKE: NO. KUB X-Ray 11/08/19 19:00 IMPRESSION: Persistent diffuse dilatation of bowel loops throughout the abdomen, somewhat increased from the previous examination. Considerations include adynamic ileus or bowel obstruction. Enteric drainage tube tip curls within the gastric fundus. copyright 2010 [employer]- All Rights Reserved Assessment & Plan - Diagnosis (1) Anal cancer Is this a current diagnosis for this admission?: Yes Plan: Not candidate for rx given poor PS, suggested hospice to , will discuss further at family conference later today. (2) AMS (altered mental status) Qualifiers: Altered mental status type: delirium Qualified Code(s): R41.0 - Disorientation, unspecified Is this a current diagnosis for this admission?: Yes Plan: Not improving, multifactorial delerium w/ some probable element of dementia - Time Time Spent with patient: 35 or more minutes - Inpatient Certification Based on my medical assessment, after consideration of the patient's comorbi dities, presenting symptoms, or acuity I expect that the services needed warrant INPATIENT care.: Yes I certify that my determination is in accordance with my understanding of Medicare's requirements for reasonable and necessary INPATIENT services [42 CFR 412.3e].: Yes Medical Necessity: Risk of Complication if Not Cared For in Hospital
--- NOTE | 2019-11-10 08:36 | RADIOLOGY REPORT (SQ) ---
EXAM DESCRIPTION: KUB/ABDOMEN (SINGLE VIEW) IMAGES COMPLETED DATE/TIME: 11/10/2019 8:27 am REASON FOR STUDY: Ileus COMPARISON: 11/08/2019 NUMBER OF VIEWS: One view. TECHNIQUE: Supine radiographic image of the abdomen acquired. LIMITATIONS: None. FINDINGS: BOWEL GAS PATTERN: Persistent air-filled large and small bowel. Mild improvement from layo or exam. Differential remains partial bowel obstruction versus ileus. CALCIFICATIONS: No suspicious calcifications. SOFT TISSUES: No gross mass or suggestion of organomegaly. HARDWARE: None in the abdomen. BONES: No acute fracture. No worrisome bone lesions. OTHER: No other significant finding. IMPRESSION: Slightly less gaseous distention on today's film. Differential remains partial small aminta wel obstruction versus ileus. TECHNICAL DOCUMENTATION: JOB ID: [id number] 2010 [employer]- All Rights Reserved Reading location - IP/workstation name: [email or web address]
[2019-11-10 09:36] LABS: HEMATOCRIT 31.7 % (36.0-47.0); HEMOGLOBIN 9.9 g/dL (12.0-15.5); MEAN CORPUSCULAR HEMOGLOBIN 27.1 pg (27.0-33.4); MEAN CORPUSCULAR HGB CONC 31.3 g/dL (32.0-36.0); MEAN CORPUSCULAR VOLUME 87 fl (80-97); PLATELET COUNT 332 10^3/uL (150-450); RED BLOOD COUNT 3.67 10^6/uL (3.72-5.28); RED CELL DISTRIBUTION WIDTH 18.2 % (11.5-14.0)
[2019-11-10] MEDS: PHOSPHORUS #1 250 MG TABLET NG SCH ×3 (09:37→17:17)
[2019-11-10] MEDS: FERROUS SULFATE LIQUID 300 MG/5 ML UDC NG SCH ×2 (09:38→17:17)
[2019-11-10] MEDS: FUROSEMIDE INJ/PF 20 MG/2 ML SDV IV SCH (09:39)
[2019-11-10] MEDS: METOPROLOL TARTRATE 25 MG TABLET NG SCH ×2 (09:39→22:23)
[2019-11-10] MEDS: FAMOTIDINE 20 MG TABLET NG SCH ×2 (09:40→22:26)
[2019-11-10] MEDS: LISINOPRIL 10 MG TABLET NG SCH (09:40)
[2019-11-10] MEDS: ENOXAPARIN SODIUM INJ 40 MG/0.4 ML DISP.SYRIN SUBCUT SCH (09:40)
[2019-11-10 09:52] LABS: ALBUMIN 2.3 g/dL (3.5-5.0); ALKALINE PHOSPHATASE 170 U/L (38-126); ASPARTATE AMINO TRANSFERASE 26 U/L (14-36); BILIRUBIN,DIRECT 0.1 mg/dL (0.0-0.4); BILIRUBIN,TOTAL 0.7 mg/dL (0.2-1.3); BLOOD UREA NITROGEN 13 mg/dL (7-20); CALCIUM 9.1 mg/dL (8.4-10.2); CARBON DIOXIDE 27 mmol/L (22-30); GLUCOSE 129 mg/dL (75-110); POTASSIUM 3.2 mmol/L (3.6-5.0); TOTAL PROTEIN 5.7 g/dL (6.3-8.2)
[2019-11-10 09:57] LABS: CHLORIDE 114 mmol/L (98-107)
[2019-11-10 10:01] LABS: ANION GAP 4 (5-19)
[2019-11-10 10:26] LABS: WHITE BLOOD COUNT 57.4 10^3/uL (4.0-10.5)
--- NOTE | 2019-11-10 15:23 | PDOC PROGRESS REPORT ---
Subjective Progress Note for:: 11/10/19 Subjective:: STEFFI KULKARNI is a 64 year old female who just was admitted last week with weakness, confusion, dehydration, on imaging was found to have a rectal mass with regional adenopathy as well as retroperitoneal adenopathy, inguinal adenopathy, ultimately she got colonoscopy, had mass at the anal rectal junction along with inguinal adenopathy both of which were biopsied and came back as squamous cell carcinoma consistent with either anal primary or cervical primary. We had SPEECH LANGUAGE PATHOLOGIST ASSISTANT see her during that admission as well, they did a pelvic exam along with cervical evaluation, there was a cervical polyp noted but no malignancy found on that evaluation. So this was felt to be a primary anal cancer with appropriate spread to lymph nodes. She was hydrated, ultimately was eating and drinking, and getting around and was finally discharged home. The first 2 days post discharge her says that she was doing fairly well, but then she began going downhill over the weekend, became weak lethargic, poor p.o. intake, 24 hours prior to admission she was bedbound with total care, and very confused. She was supposed to see us as an outpatient but we recommended that she come to the ED. Upon and presentation, she was found to have some hypercalcemia, and some other metabolic derangements, she was given Aredia already. She has been given some hydration and she seems a little bit more alert this morning. 11/08/2019. No acute events overnight. Has had one small bowel movement, alert and oriented only to self, follows command. Denies any abdominal pain, fever, chills, nausea, vomiting. 11/09/2019. No acute events overnight. Patient is still very confused however alert and cooperative, patient has had one small bowel movement, is still having NG tube in place. Patient denies any chest pain, shortness of breath, abdominal pain, fever or chills. 11/10/2019. No significant change unfortunately patient still delirious and and having excessive gastric residuals from NG tube, KUB shows slightly less gaseous distention patient had 1 bloody bowel movement yesterday, however hemoglobin is a stable, patient still having significant leukocytosis with no fever or any sign of infection, oncology is on board and plan is for possible transition to hospice pending family conference. Had 2 small bowel movements today. Patient is awake and alert, follows two-step command however only oriented to self, denies any abdominal pain, fever, chills, nausea. Reason For Visit: HYPERCALCEMIA,METASTATIC SQUAMOUS CELL CARCINOMA Physical Exam Vital Signs: Temp Pulse Resp BP Pulse Ox 98.9 F 121 H 20 118/94 H 98 11/10/19 07:16 11/10/19 07:16 11/10/19 07:16 11/10/19 07:16 11/10/19 07:16 Intake & Output 11/09/19 11/10/19 11/11/19 06:59 06:59 06:59 Intake Total 2000 2000 0 Output Total 1500 Balance 500 2000 0 Weight 70.4 kg 69.9 kg General appearance: PRESENT: no acute distress, well-developed, well-nourished Head exam: PRESENT: atraumatic, normocephalic Respiratory exam: PRESENT: clear to auscultation sakina. ABSENT: rales, rhonchi, wheezes Cardiovascular exam: PRESENT: RRR. ABSENT: diastolic murmur, rubs, systolic murmur GI/Abdominal exam: PRESENT: distended, hypoactive bowel sounds, normal bowel sounds, soft. ABSENT: guarding, mass, organolmegaly, rebound, tenderness Extremities exam: PRESENT: full ROM, other - Left upper extremity swelling. ABSENT: calf tenderness, clubbing, pedal edema Neurological exam: PRESENT: alert, awake, oriented to person, CN II-XII grossly intact. ABSENT: motor sensory deficit Results Laboratory Results: 11/10/19 09:03 11/10/19 09:03 11/10/19 11/10/19 11/10/19 00:46 03:47 06:44 WBC 56.9 H* Cancelled Cancelled RBC 3.51 L Cancelled Cancelled Hgb 9.8 L Cancelled Cancelled Hct 30.1 L Cancelled Cancelled MCV 86 Cancelled Cancelled MCH 27.8 Cancelled Cancelled MCHC 32.5 Cancelled Cancelled RDW 17.5 H Cancelled Cancelled Plt Count 353 Cancelled Cancelled Sodium Potassium Chloride Carbon Dioxide Anion Gap BUN Creatinine Est GFR ( Amer) Glucose Calcium Total Bilirubin AST Alkaline Phosphatase Total Protein Albumin 11/10/19 11/10/19 09:03 09:03 WBC 57.4 H* RBC 3.67 L Hgb 9.9 L Hct 31.7 L MCV 87 MCH 27.1 MCHC 31.3 L RDW 18.2 H Plt Count 332 Sodium 144.8 Potassium 3.2 L Chloride 114 H Carbon Dioxide 27 Anion Gap 4 L BUN 13 Creatinine 0.30 L Est GFR ( Amer) > 60 Glucose 129 H Calcium 9.1 Total Bilirubin 0.7 AST 26 Alkaline Phosphatase 170 H Total Protein 5.7 L Albumin 2.3 L 11/04/19 13:28 Blood Blood Culture - Final NO GROWTH IN 5 DAYS 11/04/19 11/04/19 11/04/19 10:39 10:39 10:39 Creatine Kinase < 20 L CK-MB (CK-2) < 0.22 Troponin I < 0.012 NT-Pro-B Natriuret Pep 792 H Impressions: Chest X-Ray 11/04/19 10:56 IMPRESSION: NO ACUTE RADIOGRAPHIC FINDING IN THE CHEST. Head MRI 11/05/19 00:00 IMPRESSION: NO ENHANCING LESIONS. MINIMAL MICROVASCULAR ISCHEMIC CHANGE. O THERWISE NORMAL STUDY. EVIDENCE OF ACUTE STROKE: NO. KUB X-Ray 11/10/19 06:00 IMPRESSION: Slightly less gaseous distention on today's film. Differential remains partial small bowel obstruction versus ileus. Assessment and Plan - Diagnosis (1) Acute metabolic encephalopathy Is this a current diagnosis for this admission?: Yes Plan: Unchanged. Likely due to complication of underlying malignancy and ileus. Electrolytes WNL. MRI brain negative for any enhancing lesion or acute stroke. Monitor electrolytes, monitor vitals, fall, aspiration and seizure precautions. (2) Dysphagia Qualifiers: Dysphagia type: unspecified Qualified Code(s): R13.10 - Dysphagia, unspecified Is this a current diagnosis for this admission?: Yes Plan: Patient currently n.p.o. due to ileus. NG tube in place. Will consult speech therapy once patient ileus resolved. MRI brain negative for any stroke. (3) Hypercalcemia Is this a current diagnosis for this admission?: Yes Plan: Resolved. Likely hypercalcemia malignancy. PTH WNL. PTH related peptide pending. Currently on cinacalcet. CMP tomorrow. Continue cinacalcet. Follow-up PTH related peptide. (4) Hypertension Qualifiers: Hypertension type: essential hypertension Qualified Code(s): I10 - Essential (primary) hypertension Is this a current diagnosis for this admission?: Yes Plan: Euvolemic. Normotensive. Continue current meds. Adjust meds as needed. (5) Hypoalbuminemia Is this a current diagnosis for this admission?: Yes Plan: Likely due to underlying malignancy and low p.o. intake. Prealbumin 8.3. Currently n.p.o. due to ileus. Will consult registered dietitian for recommendations. (6) Hypokalemia Is this a current diagnosis for this admission?: Yes Plan: Likely due to GI losses. Replete. BMP tomorrow. (7) Ileus, unspecified Is this a current diagnosis for this admission?: Yes Plan: Abdomen distended and hypoactive otherwise benign. Had one bloody bowel movement yesterday. KUB shows mild improvement, no small bowel obstruction. Currently n.p.o. Having small bowel movements. Passing flatus. Continue NG tube, monitor electrolytes, KUB tomorrow. (8) Leukocytosis Qualifiers: Leukocytosis type: other Qualified Code(s): D72.828 - Other elevated white blood cell count Is this a current diagnosis for this admission?: Yes Plan: Afebrile. Blood cultures negative. Persistent leukocytosis. Chronic. Unsure of this is malignancy related. Daily CBC. Monitor vitals. Empiric IV antibiotics if any sign of infection. (9) Rectal cancer Is this a current diagnosis for this admission?: Yes Plan: Recently diagnosed. Oncology on board. No intervention planned at this point as patient is too weak for chemotherapy currently DNR. As per oncology he has discussed possible transition to hospice with family. (10) Anemia Qualifiers: Anemia type: iron deficiency Iron deficiency anemia type: unspecified iron deficiency Qualified Code(s): D50.9 - Iron deficiency anemia, unspecified Is this a current diagnosis for this admission?: Yes Plan: H&H stable. No acute sign of bleeding. Monitor H&H. Supportive transfusions. (11) Hyponatremia Is this a current diagnosis for this admission?: Yes Plan: Improving. Continue NS. (12) Left upper extremity swelling Is this a current diagnosis for this admission?: Yes Plan: Patient has developed diffuse left upper extremity swelling, no tenderness, no sign of infection , pulses 2+, patient has an IV line on the left upper extremity not sure if this is infiltration. Will get a Doppler to rule out DVT. - Plan Summary Summary: I believe the patient's presentation is all directly related to the metastatic squamous cell carcinoma. Multiple tests have been ordered. The patient has had blood cultures. I am checking for C. difficile. At this point I do not believe the patient has sepsis but rather very serious complications related to her metastatic cancer. - Time Time Spent with patient: 15-24 minutes Medications reviewed and adjusted accordingly: Yes Anticipated Discharge Disposition: [facility] Anticipated Discharge: within 72 hours
--- NOTE | 2019-11-10 19:08 | RADIOLOGY REPORT (SQ) ---
EXAM DESCRIPTION: VENOUS UNILATERAL UPPER IMAGES COMPLETED DATE/TIME: 11/10/2019 6:10 pm REASON FOR STUDY: Left upper extremity swelling COMPARISON: None. TECHNIQUE: Dynamic and static villegas scale and color images acquired of the left arm venous system. Se lected spectral images acquired with additional compression and augmentation maneuvers. The contralat eral subclavian vein and internal jugular vein were also imaged. Images stored on PACS. LIMITATIONS: None. FINDINGS: INTERNAL JUGULAR VEIN: Normal phasicity, compression, augmentation. No visualized echogeni c material on villegas scale. No defects on color images. Comparison opposite side normal. SUBCLAVIAN VEIN: Normal compression, augmentation. No visualized echogenic material on villegas scale. No defects on color images. AXILLARY VEIN: Normal compression, augmentation. No visualized echogenic material on villegas scale. No d efects on color images. BRACHIAL VEIN: Normal compression, augmentation. No visualized echogenic material on villegas scale. No d efects on color images. BASILIC VEIN: Normal compression, augmentation. No visualized echogenic material on villegas scale. No de fects on color images. CEPHALIC VEIN: Normal compression, augmentation. No visualized echogenic material on villegas scale. No d efects on color images. OTHER: Subcutaneous edema. CONTRALATERAL SUBCLAVIAN VEIN AND INTERNAL JUGULAR VEIN: Normal phasicity, compression and augmentation. No visualized echogenic material on villegas scale. No de fects on color images. IMPRESSION: NO EVIDENCE DVT OR SVT IN THE LEFT ARM. TECHNICAL DOCUMENTATION: JOB ID: [id number] 2010 [employer]- All Rights Reserved Reading location - IP/workstation name: [email or web address]
--- NOTE | 2019-11-11 08:30 | PDOC PROGRESS REPORT ---
Subjective Progress Note for:: 11/11/19 Subjective:: Had long discussion w/ about hospice and recommended home hospice. is thinking about it. D/w Edwin Méndez D/C planning also Reason For Visit: HYPERCALCEMIA,METASTATIC SQUAMOUS CELL CARCINOMA Physical Exam Vital Signs: Temp Pulse Resp BP Pulse Ox 98.0 F 107 H 18 118/62 96 11/11/19 07:08 11/11/19 07:08 11/11/19 07:08 11/11/19 07:08 11/11/19 07:08 Intake & Output 11/10/19 11/11/19 11/12/19 06:59 06:59 06:59 Intake Total 1999 1000 Balance 1999 1000 Weight 69.9 kg 71.1 kg General appearance: PRESENT: no acute distress, well-developed, well-nourished Head exam: PRESENT: atraumatic, normocephalic Eye exam: PRESENT: conjunctiva pink, EOMI, PERRLA. ABSENT: scleral icterus Ear exam: PRESENT: normal external ear exam Mouth exam: PRESENT: moist, tongue midline Neck exam: ABSENT: carotid bruit, JVD, lymphadenopathy, thyromegaly Respiratory exam: PRESENT: clear to auscultation sakina. ABSENT: rales, rhonchi, wheezes Cardiovascular exam: PRESENT: RRR. ABSENT: diastolic murmur, rubs, systolic murmur Pulses: PRESENT: normal dorsalis pedis pul Vascular exam: PRESENT: normal capillary refill GI/Abdominal exam: PRESENT: normal bowel sounds, soft. ABSENT: distended, guarding, mass, organolmegaly, rebound, tenderness Rectal exam: PRESENT: deferred Extremities exam: PRESENT: full ROM. ABSENT: calf tenderness, clubbing, pedal edema Neurological exam: PRESENT: alert, awake, oriented to person, oriented to place, oriented to time, oriented to situation, CN II-XII grossly intact. ABSENT: motor sensory deficit Psychiatric exam: PRESENT: appropriate affect, normal mood. ABSENT: homicidal ideation, suicidal ideation Skin exam: PRESENT: dry, intact, warm. ABSENT: cyanosis, rash Results Laboratory Results: 11/10/19 09:03 11/10/19 09:03 11/10/19 11/10/19 09:03 09:03 WBC 57.4 H* RBC 3.67 L Hgb 9.9 L Hct 31.7 L MCV 87 MCH 27.1 MCHC 31.3 L RDW 18.2 H Plt Count 332 Sodium 144.8 Potassium 3.2 L Chloride 114 H Carbon Dioxide 27 Anion Gap 4 L BUN 13 Creatinine 0.30 L Est GFR ( Amer) > 60 Glucose 129 H Calcium 9.1 Total Bilirubin 0.7 AST 26 Alkaline Phosphatase 170 H Total Protein 5.7 L Albumin 2.3 L 11/04/19 11/04/19 11/04/19 10:39 10:39 10:39 Creatine Kinase < 20 L CK-MB (CK-2) < 0.22 Troponin I < 0.012 NT-Pro-B Natriuret Pep 792 H Impressions: Chest X-Ray 11/04/19 10:56 IMPRESSION: NO ACUTE RADIOGRAPHIC FINDING IN THE CHEST. Head MRI 11/05/19 00:00 IMPRESSION: NO ENHANCING LESIONS. MINIMAL MICROVASCULAR ISCHEMIC CHANGE. OTHERWISE NORMAL STUDY. EVIDENCE OF ACUTE STROKE: NO. KUB X-Ray 11/10/19 06:00 IMPRESSION: Slightly less gaseous distention on today's film. Differential remains partial small bowel obstruction versus ileus. Venous Doppler Study 11/10/19 15:23 IMPRESSION: NO EVIDENCE DVT OR SVT IN THE LEFT ARM. Assessment & Plan - Diagnosis (1) Anal cancer Is this a current diagnosis for this admission?: Yes Plan: Not candidate further rx (2) AMS (altered mental status) Qualifiers: Altered mental status type: delirium Qualified Code(s): R41.0 - Disorientation, unspecified Is this a current diagnosis for this admission?: Yes Plan: No improvement thus far - Time Time Spent with patient: 35 or more minutes
[2019-11-11] MEDS: FAMOTIDINE 20 MG TABLET NG SCH ×2 (09:32→22:41)
[2019-11-11] MEDS: METOPROLOL TARTRATE 25 MG TABLET NG SCH ×2 (09:32→22:41)
[2019-11-11] MEDS: LISINOPRIL 10 MG TABLET NG SCH (09:32)
[2019-11-11] MEDS: FERROUS SULFATE LIQUID 300 MG/5 ML UDC NG SCH ×2 (09:33→17:50)
[2019-11-11] MEDS: FUROSEMIDE INJ/PF 20 MG/2 ML SDV IV SCH (09:33)
[2019-11-11] MEDS: PHOSPHORUS #1 250 MG TABLET NG SCH ×3 (09:33→17:50)
[2019-11-11] MEDS: ENOXAPARIN SODIUM INJ 40 MG/0.4 ML DISP.SYRIN SUBCUT SCH (09:34)
[2019-11-11] MEDS: POTASSI CL 20 MEQ/D5LR 1L 20 MEQ/1,000 ML RTUINJ IV PRN (12:31)
--- NOTE | 2019-11-11 19:17 | PDOC PROGRESS REPORT ---
Subjective Progress Note for:: 11/11/19 Subjective:: Patient was seen on morning rounds. She was found resting in bed, comfortably, on room air with NG tube in place to low wall suction; draining clear light brown fluid with particulates. Patient is alert, makes eye contact and smiles, answers all questions yes and cuticles multiple times. She does appear to be comfortable and is not noted to be in any acute distress. ROS is limited secondary to mental status. Per nursing, patient has recently had hany blood per rectum mixed with melena. Discharge planning has also informed them that the home hospice services is delivering equipment to the home this evening in preparation for discharge to home with hospice in the morning. Reason For Visit: HYPERCALCEMIA,METASTATIC SQUAMOUS CELL CARCINOMA Physical Exam Vital Signs: Temp Pulse Resp BP Pulse Ox 98.5 F 109 H 20 116/76 97 11/11/19 15:18 11/11/19 15:18 11/11/19 15:18 11/11/19 15:18 11/11/19 15:18 Intake & Output 11/10/19 11/11/19 11/12/19 06:59 06:59 06:59 Intake Total 2000 1000 1000 Balance 2000 1000 1000 Weight 69.9 kg 71.1 kg General appearance: PRESENT: no acute distress, well-developed, other - Chronically ill-appearing. Anasarca. Head exam: PRESENT: atraumatic, normocephalic Eye exam: PRESENT: conjunctiva pink, EOMI, PERRLA. ABSENT: scleral icterus Ear exam: PRESENT: normal external ear exam Mouth exam: PRESENT: dry mucosa, tongue midline Respiratory exam: PRESENT: clear to auscultation sakina, symmetrical, unlabored. ABSENT: rales, rhonchi, wheezes Cardiovascular exam: PRESENT: RRR, +S1, +S2. ABSENT: diastolic murmur, rubs, systolic murmur Vascular exam: PRESENT: normal capillary refill GI/Abdominal exam: PRESENT: hypoactive bowel sounds, other - NG tube to low wall suction. ABSENT: distended, guarding, mass, organolmegaly, rebound, tenderness Rectal exam: PRESENT: deferred Extremities exam: PRESENT: full ROM, +2 edema - Generalized, nonpitting, edema; anasarca. ABSENT: calf tenderness, clubbing, pedal edema Neurological exam: PRESENT: alert, awake, CN II-XII grossly intact, other - Does not answer questions or follow directions today. ABSENT: motor sensory deficit Psychiatric exam: PRESENT: unusual affect. ABSENT: homicidal ideation, suicidal ideation Skin exam: PRESENT: dry, intact, warm. ABSENT: cyanosis, rash Results Laboratory Results: 11/10/19 09:03 11/10/19 09:03 11/04/19 11/04/19 11/04/19 10:39 10:39 10:39 Creatine Kinase < 20 L CK-MB (CK-2) < 0.22 Troponin I < 0.012 NT-Pro-B Natriuret Pep 792 H Impressions: Chest X-Ray 11/04/19 10:56 IMPRESSION: NO ACUTE RADIOGRAPHIC FINDING IN THE CHEST. Head MRI 11/05/19 00:00 IMPRESSION: NO ENHANCING LESIONS. MINIMAL MICROVASCULAR ISCHEMIC CHANGE. OTHERWISE NORMAL STUDY. EVIDENCE OF ACUTE STROKE: NO. KUB X-Ray 11/10/19 06:00 IMPRESSION: Slightly less gaseous distention on today's film. Differential remains partial small bowel obstruction versus ileus. Venous Doppler Study 11/10/19 15:23 IMPRESSION: NO EVIDENCE DVT OR SVT IN THE LEFT ARM. Assessment and Plan - Diagnosis (1) Acute metabolic encephalopathy Is this a current diagnosis for this admission?: Yes Plan: Unchanged. Likely due to complication of underlying malignancy and ileus. Electrolytes WNL. MRI brain negative for any enhancing lesion or acute stroke. Fall, aspiration and seizure precautions. Plan to d/c home w/ Hospice services tomorrow. (2) Dysphagia Qualifiers: Dysphagia type: unspecified Qualified Code(s): R13.10 - Dysphagia, unspecified Is this a current diagnosis for this admission?: Yes Plan: Patient currently n.p.o. due to ileus. NG tube in place. Plan to d/c home w/ Hospice services. Will remove NG tube prior to discharge. (3) Hypercalcemia Is this a current diagnosis for this admission?: Yes Plan: Resolved. Hypercalcemia malignancy. PTH WNL. PTH related peptide pending. Currently on cinacalcet. Plan to d/c on Hospice tomorrow. (4) Hypertension Qualifiers: Hypertension type: essential hypertension Qualified Code(s): I10 - Essential (primary) hypertension Is this a current diagnosis for this admission?: Yes Plan: Euvolemic. Normotensive. Continue current meds. (5) Hypoalbuminemia Is this a current diagnosis for this admission?: Yes Plan: Likely due to underlying malignancy and low p.o. intake. Prealbumin 8.3. Currently n.p.o. due to ileus. No further evaluation/interventions planned. Plan to d/c on hospice tomorrow. (6) Hypokalemia Is this a current diagnosis for this admission?: Yes Plan: Likely due to GI losses. Potentially worsened by IV furosemide. Previously received potassium supplementation. Discharging on hospice; no further interventions planned. (7) Ileus, unspecified Is this a current diagnosis for this admission?: Yes Plan: Slight improvement. Abdomen distended and hypoactive otherwise benign. KUB shows mild improvement, no small bowel obstruction. Currently n.p.o. Having small bowel movements. Passing flatus. Continue NG tube, will d/c prior to discharge. (8) Leukocytosis Qualifiers: Leukocytosis type: other Qualified Code(s): D72.828 - Other elevated white blood cell count Is this a current diagnosis for this admission?: Yes Plan: Afebrile. Blood cultures negative. Persistent leukocytosis. Chronic. Likely malignancy related. No indications for antibiotics. (9) Rectal cancer Is this a current diagnosis for this admission?: Yes Plan: Recently diagnosed. Oncology on board. No intervention recommended. As per oncology, transition to hospice. Arrangements made by Heme/Onc to d/c home with hospice services tomorrow. (10) Anemia Qualifiers: Anemia type: iron deficiency Iron deficiency anemia type: unspecified iron deficiency Qualified Code(s): D50.9 - Iron deficiency anemia, unspecified Is this a current diagnosis for this admission?: Yes Plan: H&H stable. No acute sign of bleeding. - Time Time Spent with patient: 25-34 minutes Medications reviewed and adjusted accordingly: Yes Anticipated Discharge Disposition: Home with Hospice Anticipated Discharge: within 24 hours - pending delivery of equipment (hospital bed)
--- NOTE | 2019-11-12 08:05 | PDOC PROGRESS REPORT ---
Subjective Progress Note for:: 11/12/19 Subjective:: No acute events overnight, apparently things are in place for discharge today Reason For Visit: HYPERCALCEMIA,METASTATIC SQUAMOUS CELL CARCINOMA Physical Exam Vital Signs: Temp Pulse Resp BP Pulse Ox 98.4 F 121 H 18 117/60 93 11/12/19 03:32 11/12/19 03:32 11/12/19 03:32 11/12/19 03:32 11/12/19 03:32 Intake & Output 11/11/19 11/12/19 11/13/19 06:59 06:59 06:59 Intake Total 1000 1000 Balance 1000 1000 Weight 71.1 kg 68.4 kg Results Laboratory Results: 11/10/19 09:03 11/10/19 09:03 11/04/19 11/04/19 11/04/19 10:39 10:39 10:39 Creatine Kinase < 20 L CK-MB (CK-2) < 0.22 Troponin I < 0.012 NT-Pro-B Natriuret Pep 792 H Impressions: Chest X-Ray 11/04/19 10:56 IMPRESSION: NO ACUTE RADIOGRAPHIC FINDING IN THE CHEST. Head MRI 11/05/19 00:00 IMPRESSION: NO ENHANCING LESIONS. MINIMAL MICROVASCULAR ISCHEMIC CHANGE. OTHERWISE NORMAL STUDY. EVIDENCE OF ACUTE STROKE: NO. KUB X-Ray 11/10/19 06:00 IMPRESSION: Slightly less gaseous distention on today's film. Differential remains partial small bowel obstruction versus ileus. Venous Doppler Study 11/10/19 15:23 IMPRESSION: NO EVIDENCE DVT OR SVT IN THE LEFT ARM. Assessment & Plan - Diagnosis (1) Anal cancer Is this a current diagnosis for this admission?: Yes Plan: No treatment possible, life expectancy less than 6 months, hospice appropriate (2) AMS (altered mental status) Qualifiers: Altered mental status type: delirium Qualified Code(s): R41.0 - Disorientation, unspecified Is this a current diagnosis for this admission?: Yes Plan: Not improved - Time Time Spent with patient: 15-24 minutes
[2019-11-12] MEDS ORDERED: FUROSEMIDE 40 MG TABLET NG SCH (10:00)
[2019-11-12] MEDS: METOPROLOL TARTRATE 25 MG TABLET NG SCH (11:17)
[2019-11-12] MEDS: FAMOTIDINE 20 MG TABLET NG SCH (11:17)
[2019-11-12] MEDS: LISINOPRIL 10 MG TABLET NG SCH (11:18)
[2019-11-12] MEDS: FERROUS SULFATE LIQUID 300 MG/5 ML UDC NG SCH (11:18)
[2019-11-12] MEDS: PHOSPHORUS #1 250 MG TABLET NG SCH ×2 (11:18→14:39)
[2019-11-12] MEDS: ENOXAPARIN SODIUM INJ 40 MG/0.4 ML DISP.SYRIN SUBCUT SCH (11:19)
[2019-11-12 11:45] VITALS: BP 125/86
--- NOTE | 2019-11-15 16:50 | PDOC DISCHARGE SUMMARY ---
Impression - Admit/DC Date/PCP Admission Date/Primary Care Provider: 11/04/19 12:53 Discharge Date: 11/12/19 - Discharge Diagnosis (1) Acute metabolic encephalopathy Is this a current diagnosis for this admission?: Yes (2) Dysphagia Is this a current diagnosis for this admission?: Yes (3) Hypercalcemia Is this a current diagnosis for this admission?: Yes (4) Hypertension Is this a current diagnosis for this admission?: Yes (5) Hypoalbuminemia Is this a current diagnosis for this admission?: Yes (6) Hypokalemia Is this a current diagnosis for this admission?: Yes (7) Ileus, unspecified Is this a current diagnosis for this admission?: Yes (8) Leukocytosis Is this a current diagnosis for this admission?: Yes (9) Rectal cancer Is this a current diagnosis for this admission?: Yes (10) Anemia Is this a current diagnosis for this admission?: Yes - Additional Information Resuscitation Status: Do Not Resuscitate Discharge Diet: As Tolerated Discharge Activity: Activity As Tolerated Referrals: ELEANOR TOTH MD [ACTIVE STAFF] - Prescriptions: Phosphorus #1 [K-Phos Neutral 250 mg Tablet] 500 mg NG AC #30 tablet Furosemide [Lasix 40 mg Tablet] 40 mg NG DAILY #30 tablet Metoprolol Tartrate [Lopressor 25 mg Tablet] 12.5 mg NG Q12 #15 tablet Home Medications: Acetaminophen [Tylenol 325 mg Tablet] 650 mg PO Q4HP PRN tablet 10/29/19 Lisinopril [Prinivil 10 mg Tablet] 10 mg PO DAILY #30 tablet 10/29/19 Acetaminophen [Tylenol 325 mg Tablet] 650 mg NG Q4HP PRN tablet 11/12/19 Furosemide [Lasix 40 mg Tablet] 40 mg NG DAILY #30 tablet 11/12/19 Metoprolol Tartrate [Lopressor 25 mg Tablet] 12.5 mg NG Q12 #15 tablet 11/12/19 Phosphorus #1 [K-Phos Neutral 250 mg Tablet] 500 mg NG AC #30 tablet 11/12/19 History of Present Illiness History of Present Illness: Per H&P by Dr. Tirado: STEFFI KULKARNI is a 64 year old female this very pleasant but unfortunate 64-year-old female was just discharged on October 28 from [facility]. 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 Today was her first virtual visit with Dr. Toth. Her reported that she has not been out of bed for several days and is profoundly weak. He was directed to get the patient to the emergency department. The patient was discharged on a Sunday. The patient's reports that on she was out of bed. She was walking slowly around the house. Her appetite was fair. Sunday morning she was okay but started to decline by the afternoon. While trying to walk with a walker she felt very weak and sank to the floor. He was unable to pick her up and so he called a friend. While on the floor, however, she was able to eat some soup. He reported no coughing or suggestion of aspiration. On Sunday and Sunday he states that she hardly get out of bed. She has been having liquid stool and has been extremely weak. Home health physical therapy was therapy yesterday but could hardly get her out of bed. On presentation she appears to be very ill. Her serum calcium was 12.7 but considering her low albumin (2.5) it corrects to greater than 13. I believe she was on antibiotics during her most recent admission in the watery stool is certainly concerning for C. difficile. This will be tested. She has had a very elevated white blood cell count all through her last admission as well as on presentation today. Antib iotics had limited effect on her last visit. Blood cultures have been drawn. Urinalysis has been ordered. The emergency department physician administered IV fluids, pamidronate, salmon calcitonin and potassium. The patient will be admitted to the hospitalist service with Dr. Toth consulting. Hospital Course Hospital Course: (1) Acute metabolic encephalopathy Unchanged. Likely due to complication of underlying malignancy and ileus. Electrolytes WNL. MRI brain negative for any enhancing lesion or acute stroke. Fall, aspiration and seizure precautions. D/C home w/ Hospice services. (2) Dysphagia Plan to d/c home w/ Hospice services. (3) Hypercalcemia Resolved. Hypercalcemia malignancy. PTH WNL. PTH related peptide pending. Currently on cinacalcet. Plan to d/c on Hospice today (4) Hypertension Euvolemic. Normotensive. Continue current meds. (5) Hypoalbuminemia Likely due to underlying malignancy and low p.o. intake. Prealbumin 8.3. No further evaluation/interventions planned. (6) Hypokalemia Likely due to GI losses. Potentially worsened by IV furosemide. Previously received potassium supplementation. Discharging on hospice; no further interventions planned. (7) Ileus, unspecified Slight improvement. Abdomen distended and hypoactive otherwise benign. KUB shows mild improvement, no small bowel obstruction. Placed in n.p.o. status w/ NG tube to suction. Having small bowel movements. Passing flatus. Continues to have abd distention and hypoactive bowel sounds. (8) Leukocytosis Afebrile. Blood cultures negative. Persistent leukocytosis. Chronic. Likely malignancy related. No indications for antibiotics. (9) Rectal cancer Recently diagnosed. Oncology on board. No intervention recommended. As per oncology, transition to hospice. Arrangements made by Heme/Onc to d/c home with hospice services today (10) Anemia H&H stable. No acute sign of bleeding. Physical Exam Vital Signs: Temp Pulse Resp BP Pulse Ox 97.9 F 115 H 20 125/86 H 94 11/12/19 11:40 11/12/19 11:40 11/12/19 11:40 11/12/19 11:40 11/12/19 11:40 General appearance: PRESENT: no acute distress, well-developed, other - Chronically ill-appearing. Head exam: PRESENT: atraumatic, normocephalic Eye exam: PRESENT: conjunctiva pink, EOMI, PERRLA. ABSENT: scleral icterus Mouth exam: PRESENT: dry mucosa, tongue midline Respiratory exam: PRESENT: clear to auscultation sakina, symmetrical, unlabored. ABSENT: rales, rhonchi, wheezes Cardiovascular exam: PRESENT: RRR. ABSENT: diastolic murmur, rubs, systolic murmur Pulses: PRESENT: +1 pedal pulses bilateral Vascular exam: PRESENT: normal capillary refill GI/Abdominal exam: PRESENT: diminished bowel sounds, soft. ABSENT: distended, guarding, mass, organolmegaly, rebound, tenderness Rectal exam: PRESENT: deferred Extremities exam: PRESENT: full ROM. ABSENT: calf tenderness, clubbing, pedal edema Neurological exam: PRESENT: alert, awake, other - Does not answer questions or follow directions today; laughs at each thing I say. ABSENT: motor sensory deficit Skin exam: PRESENT: dry, intact, warm. ABSENT: cyanosis, rash Results Laboratory Results: WBC 57.4 10^3/uL (4.0-10.5) H* 11/10/19 09:03 RBC 3.67 10^6/uL (3.72-5.28) L 11/10/19 09:03 Hgb 9.9 g/dL (12.0-15.5) L 11/10/19 09:03 Hct 31.7 % (36.0-47.0) L 11/10/19 09:03 MCV 87 fl (80-97) 11/10/19 09:03 MCH 27.1 pg (27.0-33.4) 11/10/19 09:03 MCHC 31.3 g/dL (32.0-36.0) L 11/10/19 09:03 RDW 18.2 % (11.5-14.0) H 11/10/19 09:03 Plt Count 332 10^3/uL (150-450) 11/10/19 09:03 Lymph % (Auto) Not Reportable 11/09/19 06:03 Crook % (Auto) Not Reportable 11/09/19 06:03 Eos % (Auto) Not Reportable 11/09/19 06:03 Baso % (Auto) Not Reportable 11/09/19 06:03 Absolute Neuts (auto) Not Reportable 11/09/19 06:03 Absolute Lymphs (auto) Not Reportable 11/09/19 06:03 Absolute Monos (auto) Not Reportable 11/09/19 06:03 Absolute Eos (auto) Not Reportable 11/09/19 06:03 Absolute Basos (auto) Not Reportable 11/09/19 06:03 Total Counted 100 11/09/19 06:03 Seg Neutrophils % Not Reportable 11/09/19 06:03 Seg Neuts % (Manual) 87 % (42-78) H 11/09/19 06:03 Band Neutrophils % 7 % (3-5) H 11/09/19 06:03 Lymphocytes % (Manual) 5 % (13-45) L 11/09/19 06:03 Monocytes % (Manual) 1 % (3-13) L 11/09/19 06:03 Eosinophils % (Manual) 0 % (0-6) 11/09/19 06:03 Basophils % (Manual) 0 % (0-2) 11/09/19 06:03 Abs Neuts (Manual) 55.3 10^3/uL (1.7-8.2) H 11/09/19 06:03 Abs Lymphs (Manual) 2.9 10^3/uL (0.5-4.7) 11/09/19 06:03 Abs Monocytes (Manual) 0.6 10^3/uL (0.1-1.4) 11/09/19 06:03 Absolute Eos (Manual) 0.0 10^3/uL (0.0-0.6) 11/09/19 06:03 Abs Basophils (Manual) 0.0 10^3/uL (0.0-0.2) 11/09/19 06:03 Toxic Granulation 1+ 11/09/19 06:03 Toxic Vacuolation PRESENT 11/08/19 08:25 Platelet Estimate Cancelled 11/10/19 06:44 Clumped Platelets PRESENT 11/04/19 10:39 Platelet Comment ADEQUATE 11/09/19 06:03 Polychromasia SLIGHT 11/07/19 07:39 Poikilocytosis SLIGHT 11/06/19 05:00 Anisocytosis 1+ 11/09/19 06:03 Tear Drop Cells SLIGHT 11/04/19 10:39 Ovalocytes 1+ 11/09/19 06:03 Filomena Cells SLIGHT 11/05/19 05:15 Sodium 144.8 mmol/L (137-145) 11/10/19 09:03 Potassium 3.2 mmol/L (3.6-5.0) L 11/10/19 09:03 Chloride 114 mmol/L (98-107) H 11/10/19 09:03 Carbon Dioxide 27 mmol/L (22-30) 11/10/19 09:03 Anion Gap 4 (5-19) L 11/10/19 09:03 BUN 13 mg/dL (7-20) 11/10/19 09:03 Creatinine 0.30 mg/dL (0.52-1.25) L 11/10/19 09:03 Est GFR ( Amer) > 60 (>60) 11/10/19 09:03 Est GFR (MDRD) Non-Af > 60 (>60) 11/10/19 09:03 Glucose 129 mg/dL (75-110) H 11/10/19 09:03 POC Glucose 105 mg/dL (70-110) 11/12/19 12:46 Lactic Acid 1.6 mmol/L (0.7-2.1) 11/04/19 10:39 Calcium 9.1 mg/dL (8.4-10.2) 11/10/19 09:03 Ionized Calcium Krystal 1.45 mmol/L (1.14-1.30) H 11/06/19 05:00 Phosphorus 1.9 mg/dL (2.5-4.5) L 11/09/19 06:03 Magnesium 1.7 mg/dL (1.6-2.3) 11/09/19 06:03 Total Bilirubin 0.7 mg/dL (0.2-1.3) 11/10/19 09:03 Direct Bilirubin 0.1 mg/dL (0.0-0.4) 11/10/19 09:03 Neonat Total Bilirubin Not Reportable 11/10/19 09:03 Neonat Direct Bilirubin Not Reportable 11/10/19 09:03 Neonat Indirect Bili Not Reportable 11/10/19 09:03 AST 26 U/L (14-36) 11/10/19 09:03 ALT 17 U/L (<35) 11/10/19 09:03 Alkaline Phosphatase 170 U/L (38-126) H 11/10/19 09:03 Creatine Kinase < 20 U/L (30-135) L 11/04/19 10:39 CK-MB (CK-2) < 0.22 ng/mL (<4.55) 11/04/19 10:39 Troponin I < 0.012 ng/mL 11/04/19 10:39 NT-Pro-B Natriuret Pep 792 pg/mL (<125) H 11/04/19 10:39 Total Protein 5.7 g/dL (6.3-8.2) L 11/10/19 09:03 Albumin 2.3 g/dL (3.5-5.0) L 11/10/19 09:03 Prealbumin 8.3 mg/dL (17.6-36.0) L 11/07/19 07:39 PTH Intact 33.3 pg/mL (10.0-65.0) 11/05/19 05:15 PTH Related Peptide <2.0 pmol/L (.) 11/05/19 06:37 Urine Color YELLOW 11/05/19 06:08 Urine Appearance SLIGHTLY-CLOUDY 11/05/19 06:08 Urine pH 8.0 (5.0-9.0) 11/05/19 06:08 Ur Specific [place] 1.010 11/05/19 06:08 Urine Protein NEGATIVE mg/dL (NEGATIVE) 11/05/19 06:08 Urine Glucose (UA) NEGATIVE mg/dL (NEGATIVE) 11/05/19 06:08 Urine Ketones NEGATIVE mg/dL (NEGATIVE) 11/05/19 06:08 Urine Blood NEGATIVE (NEGATIVE) 11/05/19 06:08 Urine Nitrite NEGATIVE (NEGATIVE) 11/05/19 06:08 Urine Bilirubin NEGATIVE (NEGATIVE) 11/05/19 06:08 Urine Urobilinogen NEGATIVE mg/dL (<2.0) 11/05/19 06:08 Ur Leukocyte Esterase NEGATIVE (NEGATIVE) 11/05/19 06:08 Urine WBC (Auto) 3 /HPF 11/05/19 06:08 Urine RBC (Auto) 1 /HPF 11/05/19 06:08 Squamous Epi Cells Auto <1 /HPF 11/05/19 06:08 Amorphous Sediment Auto TRACE /HPF 11/05/19 06:08 Urine Mucus (Auto) RARE /LPF 11/05/19 06:08 Urine Ascorbic Acid NEGATIVE (NEGATIVE) 11/05/19 06:08 COVID-19 Source NASOPHARYNGEAL 11/10/19 16:14 COVID-19 (ZAYRA) NOT DETECTED 11/10/19 16:14 Slides for Path Review Cancelled 11/10/19 06:44 11/04/19 11/04/19 10:39 10:39 CK-MB (CK-2) < 0.22 Troponin I < 0.012 NT-Pro-B Natriuret Pep 792 H Impressions: Chest X-Ray 11/04/19 10:56 IMPRESSION: NO ACUTE RADIOGRAPHIC FINDING IN THE CHEST. Head MRI 11/05/19 00:00 IMPRESSION: NO ENHANCING LESIONS. MINIMAL MICROVASCULAR ISCHEMIC CHANGE. OTHERWISE NORMAL STUDY. EVIDENCE OF ACUTE STROKE: NO. KUB X-Ray 11/06/19 00:00 IMPRESSION: Large amount of bowel gas. May indicate an ileus. No small bowel obstruction. KUB X-Ray 11/07/19 00:00 IMPRESSION: The tip of the NG tube is in the gastric fundus. KUB X-Ray 11/07/19 08:28 IMPRESSION: NASOGASTRIC TUBE IN THE STOMACH. KUB X-Ray 11/08/19 19:00 IMPRESSION: Persistent diffuse dilatation of bowel loops throughout the abdomen, somewhat increased from the previous examination. Considerations include adynamic ileus or bowel obstruction. Enteric drainage tube tip curls within the gastric fundus. copyright 2011 [employer]- All Rights Reserved KUB X-Ray 11/10/19 06:00 IMPRESSION: Slightly less gaseous distention on today's film. Differential remains partial small bowel obstruction versus ileus. Venous Doppler Study 11/10/19 15:23 IMPRESSION: NO EVIDENCE DVT OR SVT IN THE LEFT ARM. Plan Plan of Treatment: Patient is discharged home, in fair but stable condition, to the care of family with home hospice services arranged. Advised to take medications as prescribed. Discussed any concerns with the hospice service. Return to emergency department as needed for any concerning symptoms. Time Spent: Greater than 30 Minutes Stroke Is this a Stroke Patient?: No Acute Heart Failure - Is this a Heart Failure Patient?: No
== END 2019-11-12 15:06 | disposition home or self-care (01) | DRG 640 ==
LOC: ER 10:24 → EH 12:53 → 5 15:21
PROVIDERS: ADMIT Hospitalist; ATTEND Registered Nurse
DX: E83.52 Hypercalcemia (principal); G93.41 Metabolic encephalopathy; C20 Malignant neoplasm of rectum; C79.9 Secondary malignant neoplasm of unspecified site; E87.1 Hypo-osmolality and hyponatremia; K56.7 Ileus, unspecified; A09 Infectious gastroenteritis and colitis, unspecified; C79.89 Secondary malignant neoplasm of other specified sites; K92.1 Melena; Z68.31 Body mass index [BMI] 31.0-31.9, adult; R63.4 Abnormal weight loss; E87.6 Hypokalemia; R13.10 Dysphagia, unspecified; I10 Essential (primary) hypertension; E88.09 Other disorders of plasma-protein metabolism, not elsewhere classified; D72.829 Elevated white blood cell count, unspecified; R59.9 Enlarged lymph nodes, unspecified; E86.0 Dehydration; Z66 Do not resuscitate; D63.0 Anemia in neoplastic disease; R59.0 Localized enlarged lymph nodes; Z78.1 Physical restraint status; Z11.59 Encounter for screening for other viral diseases; Z74.01 Bed confinement status; Z87.891 Personal history of nicotine dependence; Z79.899 Other long term (current) drug therapy
CPT/HCPCS: 36415; 70553; 71046; 74018; 80053; 80069; 81001; 82040; 82330; 82397; 82550; 82553; 82962; 83605; 83735; 83880; 83970; 84100; 84134; 84484; 85025; 85027; 87040; 87635; 93005; 93010; 93971; 96361; 96365; 99291; A9576; C9803; J0360; J0630; J1650; J1940; J2430; J3480; J3490; J7030; J7120